=== PATIENT | female | born 1970 ===

== ENCOUNTER 2022-06-27 08:21 | Inpatient (IN) | payer MEDICAID, SELFPAY ==
--- NOTE | ~2022-06-27 | MR_ITS ---
EXAMINATION: MR ABDOMEN WITHOUT CONTRAST CLINICAL INFORMATION: Jaundice. Question pancreatic pseudocyst. COMPARISON: 06/27/2022 CT . TECHNIQUE: MR abdomen is performed without gadolinium contrast. Heavily T2 weighted sequence performed for MRCP acquisition. FINDINGS: LUNG BASES: The visualized lung bases are unremarkable. LIVER, GALLBLADDER, AND BILIARY TREE: The liver is normal in size and smooth in contour . There is diffuse signal dropout on out of phase imaging, consistent with hepatic steatosis. No focal hepatic lesion or biliary ductal dilatation is present. There is layering material within the gallbladder lumen which could represent stones or sludge. No wall thickening. PANCREAS: The pancreatic parenchyma appears homogenous without pancreatic ductal dilatation. Extending inferiorly from the region of the head of the pancreas there is a complex cystic structure with a thick wall. Mixed internal contents. This measures 7.2 x 4.8 x 6.5 cm. This corresponds with the appearance on prior CT this is of uncertain etiology on MRI, particularly given the lack of IV contrast. SPLEEN: Unremarkable. ADRENAL GLANDS: Unremarkable. KIDNEYS AND URETERS: The kidneys are normal in size and shape. No hydronephrosis. No perinephric stranding. GASTROINTESTINAL TRACT: No bowel obstruction. No ascites or fluid collection. ABDOMINAL WALL: No significant hernia is appreciated. LYMPH NODES: No lymphadenopathy. VASCULAR: Unremarkable. OSSEOUS STRUCTURES: Marrow signal normal. MR/MR MRCP IMPRESSION: 1. Complex cystic structure extending inferiorly from the region of the head of the pancreas. This is of uncertain etiology on MRI, particularly given the lack of IV contrast. The appearance does favor a pseudocyst, though as previously suggested on CT, cannot exclude duodenal diverticulum. It appears that a CT with oral contrast is pending. 2. Hepatic steatosis. No biliary ductal dilatation. 3. Layering material within the gallbladder lumen which could represent stones or sludge. No wall thickening.
--- NOTE | ~2022-06-27 | CT_ITS ---
EXAMINATION: CT ABDOMEN AND PELVIS WITH CONTRAST CLINICAL INFORMATION: Painless jaundice. COMPARISON: None available. TECHNIQUE: Multidetector volumetric images were obtained from the superior aspect of the liver through the pubic symphysis following administration 85 mL of Omnipaque 350 intravenous contrast. Sagittal and coronal reformatted images were obtained on the technologist's workstation. Oral contrast: No This CT examination was performed using dose optimization techniques as appropriate, variously including the following: *Automated exposure control *Adjustment of mA and/or kV according to patient size (this includes techniques or standardized protocols for targeted exams where dose is matched to indication/reason for exam; i.e. extremities or head) *Use of iterative reconstruction technique DLP: 264 mGy-cm FINDINGS: LUNG BASES: The visualized lung bases are unremarkable. LIVER, GALLBLADDER, AND BILIARY TREE: Diffuse decreased hepatic attenuation without focal abnormality. A labor relations representative gallbladder with probable mild dependent sludge towards the fundus without mural thickening. No significant biliary ductal dilatation. PANCREAS: No significant parenchymal abnormality. The pancreatic duct is not dilated. No peripancreatic abnormality. See gastrointestinal tract comments below. SPLEEN: Unremarkable. ADRENAL GLANDS: Unremarkable. KIDNEYS AND URETERS: Right kidney lower pole low-attenuation focus measures 0.7 cm (image 40, series 6). No nephrolithiasis or hydroureteronephrosis. BLADDER: Mildly distended with mild intraluminal air. GASTROINTESTINAL TRACT: The stomach and proximal duodenum are unremarkable. Adjacent to the third and fourth duodenal segments is a large cystic fluid attenuation mass measuring approximately 7.3 x 4.4 x 7.0 cm (image 23, series 6; image 41, series 3). Successful connectivity to the duodenum as well as the uncinate process of the pancreas. The jejunal and ileal loops are unremarkable. The appendix is unremarkable. The proximal one third of the sigmoid colon is displaced inferiorly by the cystic mass. The colon and rectum are unremarkable. ABDOMINAL WALL: Unremarkable. LYMPH NODES: No lymphadenopathy. VASCULAR: Unremarkable. PELVIC VISCERA: Anteverted/anteflexed uterus. Mild prominence of the left periuterine veins. No overt adnexal abnormality. OSSEOUS STRUCTURES: Unremarkable. CT/CT abdomen pelvis w IV con IMPRESSION: 1. Large cystic mass in the periduodenal/pancreatic region of indeterminate origin. This could represent a pseudocyst with questionable connectivity to either the uncinate process of the pancreas and/or third segment duodenum. Adjacent structures are displaced and distorted by the presence of the cyst. Other considerations include large duodenal diverticulum and gastrointestinal duplication cyst. Primary exophytic pancreatic cystic neoplasm or duodenal cystic neoplasm cannot be excluded as well. Gastrointestinal consultation is recommended. A repeat CT scan of the abdomen with intravenous contrast as well as oral contrast should be considered. Contrast-enhanced abdominal MRI may be of value as well. 2. Hepatic steatosis. No significant biliary ductal dilatation however intermittent biliary ductal obstruction by the cystic mass cannot be excluded.
--- NOTE | ~2022-06-27 | US_ITS ---
EXAMINATION: US ABDOMEN LIMITED CLINICAL INFORMATION: Painless jaundice. COMPARISON: CT abdomen pelvis 06/27/2022. TECHNIQUE: Real-time imaging of the right upper quadrant abdominal viscera. FINDINGS: PANCREAS: Normal. LIVER: The liver is upper limits of normal size. It measures 16 cm. The liver contour is normal. Parenchymal echogenicity is slightly increased. No focal hepatic lesion. There is no intrahepatic biliary duct dilatation seen. Normal hepatopedal flow seen in the portal vein. GALLBLADDER: The gallbladder is physiologically distended with echogenic bile. No echogenic stones or wall thickening. There is a complex area posterior to gallbladder measuring 6.4 x 4.3 x 6.[address] corresponds to a cystic mass in between the colon inferiorly and duodenum and uncinate process of pancreas superiorly. COMMON BILE DUCT: Normal in caliber measuring 0.3 x 0.7 cm in diameter. RIGHT KIDNEY: Normal. No hydronephrosis. No renal calculi or focal parenchymal lesions. The kidney measures 10.7 cm in maximum dimension. FREE FLUID: None. US/US abdomen limited IMPRESSION: Large complex mass posterior to gallbladder is surrounded by transverse colon inferiorly and the duodenum and within this process superiorly. Recommend follow-up as suggested on CT abdomen exam. Echogenic gallbladder bile without any echogenic stones.
--- NOTE | ~2022-06-27 | CT_ITS ---
EXAMINATION: CT ABDOMEN AND PELVIS WITH CONTRAST CLINICAL INFORMATION: Diverticulum versus pseudocyst right upper quadrant. COMPARISON: CT and ultrasound abdomen without contrast 06/27/2022. MRCP 06/28/2022. TECHNIQUE: Multidetector volumetric images were obtained from the superior aspect of the liver through the pubic symphysis following administration 85 mL of Omnipaque 350 intravenous contrast. Sagittal and coronal reformatted images were obtained on the technologist's workstation. Oral contrast: No This CT examination was performed using dose optimization techniques as appropriate, variously including the following: *Automated exposure control *Adjustment of mA and/or kV according to patient size (this includes techniques or standardized protocols for targeted exams where dose is matched to indication/reason for exam; i.e. extremities or head) *Use of iterative reconstruction technique DLP: 278 mGy-cm FINDINGS: LUNG BASES: The lung bases are clear. Heart size is normal. LIVER, GALLBLADDER, AND BILIARY TREE: The liver is normal in size, shape, and diffuse hypoattenuation with areas of focal fatty sparing adjacent to gallbladder and right lateral hepatic lobe. No focal hepatic lesion or biliary ductal dilatation is present. The gallbladder is unremarkable with no evidence of radiopaque gallstones, gallbladder wall thickening, or obvious pericholecystic inflammatory changes. PANCREAS: The pancreas is homogeneous in density, normal size. Again visualized is a nonenhancing well capsulated cystic lesion inferior to the head of the pancreas posterior the gallbladder and posterior inferior to the duodenum. Lack of oral contrast within the diverticulum and thin capsular wall enhancement is most suggestive of a pseudocyst or congenital gastrointestinal duplication cyst. Besides [id number] mass effect on the adjacent structures such as the duodenum and transverse colon, the cystic mass appears probably benign. There is nonspecific mild mural thickening involving the mid transverse colon where there is mass effect from the large cystic lesion. SPLEEN: Unremarkable. ADRENAL GLANDS: Unremarkable. KIDNEYS AND URETERS: Both kidneys are normal size, shape and cortical thickness. No focal lesion, radiopaque calculi or hydronephrosis. BLADDER: Unremarkable. GASTROINTESTINAL TRACT: There is scattered stool and gas seen throughout the colon without significant distention. The small bowel loops are normal caliber. The appendix is normal caliber. ABDOMINAL WALL: No significant hernia is appreciated. LYMPH NODES: Normal. VASCULAR: Mild arthroscopic calcification of abdominal aorta without aneurysmal dilatation.. PELVIC VISCERA: Unremarkable. OSSEOUS STRUCTURES: Unremarkable. CT/CT abdomen pelvis w IV con IMPRESSION: 1. Stable cystic lesion inferior to the head of pancreas and posterior inferior to the duodenum with mild to moderate mass effect on the adjacent structures such as the duodenum and transverse colon. The cystic mass is probably benign. It is not a duodenal diverticulum and may represent a pseudocyst or a duplication cyst. If there is a clinical concern for diagnosis or decompression a CT guided needle aspiration can be performed for further evaluation. 2. Diffuse hepatic steatosis with areas of focal fatty sparing adjacent to gallbladder and right lateral hepatic lobe. 3. Mild constipation. Fleischner guidelines were followed.
[2022-06-27 08:35] VITALS: BP 97/69; PULSE 98; RESP 18; TEMP 36.6; O2SAT 98; BMI 49.0
--- NOTE | 2022-06-27 09:46 | ED.DENTAL ---
HPI - Dental/Oral General Chief complaint: Dental/Oral Stated complaint: abscess in mouth Time Seen by Provider: 06/27/22 08:56 Source: patient Mode of arrival: ambulatory History of Present Illness HPI Narrative: 51-year-old female who presents with right upper molar dental pain and associated abscess. Patient denies any fevers, chills and denies any difficulty with breathing or swallowing. Patient denies any recent and unexplained weight loss, denies any abdominal pain/nausea/vomiting and denies any shortness of breath or chest pain/palpitations. These questions were asked because patient appears to be quite jaundice. Patient states that she is currently being followed at [facility] for MS. She states that she used to drink alcohol but has since quit. Teeth map: 1. Abscess Related Data Allergies Allergy/AdvReac Type Severity Reaction Status Date / Time No Known Allergies Allergy Verified 06/27/22 08:37 Review of Systems Review of Systems: Pertinent positives and negatives as stated in HPI [facility] Past Medical History Source: nursing notes reviewed Social History Social History Alcohol intake: former Smoked in Last 30 Days: Yes Use of substances other than those prescribed or required for medical reasons: No Advance Directives: No Advance Directives Information Provided: No Physical Exam Vital Signs: Vital Signs: Last Vital Signs Temp 98.4 F 06/27/22 16:16 Pulse 90 06/27/22 16:16 Resp 16 06/27/22 16:16 BP 82/52 L 06/27/22 16:16 Pulse Ox 98 06/27/22 16:16 O2 Del Method Room Air 06/27/22 16:16 BMI result Body Mass Index 49.0 VITAL SIGNS: Reviewed. GENERAL: Appears older than stated age, in no acute distress. HEAD: Normocephalic/atraumatic EYES: PERRLA, EOMI, bilateral scleral icterus EARS: Ext canals without abnormality, TMs non-bulging and non-erythematous NOSE: Nares patent bilateral OROPHARYNX: no oral lesions noted, posterior pharynx clear NECK: Supple, no adenopathy LUNGS: Normal breath sounds. No adventitious sounds or accessory muscle use. SpO2<98> CARDIOVASCULAR: Regular rate and rhythm without noted murmurs ABDOMEN: Soft, non-tender, non-distended with bowel sounds. MUSCULOSKELETAL: No tenderness, deformities, or effusions noted on gross inspection. EXTREMITIES: No cyanosis, clubbing or edema. SKIN: Inspection of the skin reveals no rashes, + jaundice NEUROLOGIC: Alert and oriented x 4. Strength and sensation to light touch were grossly intact x 4, no asterixis. Medications Administered Generic Name Dose Route Start Last Admin Trade Name Freq PRN Reason Stop Dose Admin Sodium Chloride 1,000 mls @ 999 mls/hr 06/27/22 16:30 06/27/22 16:36 Ns IV 06/27/22 17:30 999 mls/hr .Q1H1M NURIA Administration Discontinued Medications Generic Name Dose Route Start Last Admin Trade Name Freq PRN Reason Stop Dose Admin Amoxicillin/Clavulanate Potassium 875 mg 06/27/22 11:35 06/27/22 11:47 Amoxicillin/Potassium Clav 875 Mg Tablet PO 06/27/22 11:36 875 mg ONCE ONE Administration Iohexol 85 ml 06/27/22 14:31 06/27/22 14:31 Iohexol 350 Mg/Ml 100 Ml Infus..Btl IV 06/27/22 14:32 85 ml ONCE ONE Administration Potassium Chloride 60 meq 06/27/22 11:35 06/27/22 11:46 Potassium Chloride Er 20 Meq Tab.Er.Prt PO 06/27/22 11:36 60 meq ONCE ONE Administration Medical Decision Making Medical Decision Making MDM Narrative: 51-year-old female who presents for dental abscess without evidence of trismus. However, patient is noted to be significantly jaundiced but does not appear to be acute, patient denies noticing that her skin color has changed but endorses her boyfriend pointed out to her. I have requested records from [facility] at this time and will obtain basic lab work although patient appears to be hemodynamically stable and under the care of the [facility] with follow-up appointments. 1145: I spoke with Dr Lyons, neurology that specializes in MS, who states that she noted that patient was jaundice and referred the patient to GI who replied that this is all to do with alcoholic jaundice and patient needs to going to rehab before she goes through further treatment. There were no further imaging studies or recommendations at that time. In addition, this physician informs me that patient's hemoglobin on 04/10 was 12.6 with a platelet count of 182. She is noted to have a hemoglobin of 8.2, Plt-446, normal coagulation panel which raises concerns for me that this patient has undergone a possible upper GI events for which I will perform a stool guaiac, patient will also undergo a CT scan with IV contrast of the abdomen and pelvis for further evaluation of hepatobiliary system. 1155: I reviewed the documentation that was sent over by the [facility], patient's most recent MRI demonstrates stable plaques and no evidence to suggest acute changes. When I spoke with Neurology, patient is not been started on any MS medications at this time. I did speak with the patient at bedside and explained to her the reason that we were pursuing the CT scan of abdomen pelvis as well as the need for a stool guaiac. Patient denies any recent hematemesis, hematochezia, or melena. Stool guaiac performed with retail coordinator-Ken and is negative. 1613: Further review of all investigations to include CT imaging studies demonstrates, not surprisingly, a large cystic mass arising from possible pancreas/duodenum . I am consulting GI and then I will speak with the patient and highly recommend that this patient be admitted for further evaluation. I discussed all results with the patient and her boyfriend at the bedside. Patient has no evidence to support SIRS and received initial Augmentin for her dental abscess which was drained and will now need admission for completely different medical problem involving her pancreas and significant jaundice. 1641: Hospitalist is requesting ultrasound to evaluate CBD and the imaging study has been ordered. In addition, patient's blood pressure is noted to be low though likely consistent with body habitus as patient is mentating well, but giving IV fluids. Signed out to Dr Tinoco. Differential Diagnosis Please see the discussion above Consult Healthcare Provider Management of the patient was discussed with: Hospitalist and Flying Squad Worker Please see the discussion above Lab Data Please see the discussion above 06/27/22 09:51 06/27/22 09:51 Labs: Lab Results 06/27/22 06/27/22 06/27/22 Range/Units 09:51 09:51 09:51 WBC 11.4 H (4.8-10.8) X10*3/uL RBC 2.29 L (4.20-5.50) X10*6/uL Hgb 8.2 L (12.0-16.0) g/dl Hct 25.4 L (37.0-47.0) % MCV 110.9 H (80.0-98.0) fL MCH 35.8 H (27.0-33.0) pg MCHC 32.3 (31.0-35.0) g/dl RDW 17.2 H (11.0-16.0) % Plt Count 446 H (160-400) X10*3/uL MPV 10.1 (9.4-12.3) fL Immature Gran % (Auto) 0.6 H (0.0-0.4) % Neut % (Auto) 80.1 H (45-73) % Lymph % (Auto) 12.2 L (20-40) % [place] % (Auto) 5.9 (2-11) % Eos % (Auto) 0.7 (0-4) % Baso % (Auto) 0.5 (0-2) % Lymph # (Auto) 1.4 (1.2-4.9) X10*3/uL [place] # (Auto) 0.7 (0.1-1.2) X10*3/uL Eos # (Auto) 0.1 (0.0-0.4) X10*3/uL Baso # (Auto) 0.1 (0.0-0.2) X10*3/uL Abs Immat Gran (auto) 0.07 H (0.00-0.03) X10*3/uL Absolute Neuts (auto) 9.2 H (2.0-8.3) x10*3/uL Absolute Nucleated RBC 0.030 H (0.0-0.012) X10*3/uL Nucleated RBC % (auto) 0.3 H (0.0-0.2) /100WBC Smear Path Review SEE NOTE PT 12.3 (10.0-13.1) SEC INR 1.1 (0.9-1.1) Sodium 137 (135-145) mmol/L Potassium 2.8 L (3.3-5.1) mmol/L Chloride 94 L (96-108) mmol/L Carbon Dioxide 31 H (22-29) mmol/L Anion Gap 15 (12-20) BUN 4 L (9-16) mg/dL Creatinine 0.53 (0.5-1.4) mg/dL Estim Creat Clear Calc 141.7 Estimated GFR > 60 Random Glucose 107 (60-115) mg/dL Calcium 8.5 (8.4-10.2) mg/dL Magnesium 1.8 (1.6-2.6) mg/dL Iron 99 (30-160) mcg/dL TIBC 224 L (228-428) mcg/dL % Saturation 44 (15-50) % Unsat Iron Binding 125 ug/dL Ferritin 2050 H (10-250) ng/mL Total Bilirubin 7.4 H (0.0-1.0) mg/dL AST 156 H (5-31) U/L ALT 85 H (0-31) U/L Alkaline Phosphatase 514 H (39-117) U/L Total Protein 5.1 L (6.5-8.0) g/dL Albumin 2.7 L (3.5-5.0) g/dL Vitamin B12 1982 H (200-900) pg/mL Stool Occult Blood (NEGATIVE) 06/27/22 Range/Units 12:10 WBC (4.8-10.8) X10*3/uL RBC (4.20-5.50) X10*6/uL Hgb (12.0-16.0) g/dl Hct (37.0-47.0) % MCV (80.0-98.0) fL MCH (27.0-33.0) pg MCHC (31.0-35.0) g/dl RDW (11.0-16.0) % Plt Count (160-400) X10*3/uL MPV (9.4-12.3) fL Immature Gran % (Auto) (0.0-0.4) % Neut % (Auto) (45-73) % Lymph % (Auto) (20-40) % [place] % (Auto) (2-11) % Eos % (Auto) (0-4) % Baso % (Auto) (0-2) % Lymph # (Auto) (1.2-4.9) X10*3/uL [place] # (Auto) (0.1-1.2) X10*3/uL Eos # (Auto) (0.0-0.4) X10*3/uL Baso # (Auto) (0.0-0.2) X10*3/uL Abs Immat Gran (auto) (0.00-0.03) X10*3/uL Absolute Neuts (auto) (2.0-8.3) x10*3/uL Absolute Nucleated RBC (0.0-0.012) X10*3/uL Nucleated RBC % (auto) (0.0-0.2) /100WBC Smear Path Review PT (10.0-13.1) SEC INR (0.9-1.1) Sodium (135-145) mmol/L Potassium (3.3-5.1) mmol/L Chloride (96-108) mmol/L Carbon Dioxide (22-29) mmol/L Anion Gap (12-20) BUN (9-16) mg/dL Creatinine (0.5-1.4) mg/dL Estim Creat Clear Calc Estimated GFR Random Glucose (60-115) mg/dL Calcium (8.4-10.2) mg/dL Magnesium (1.6-2.6) mg/dL Iron (30-160) mcg/dL TIBC (228-428) mcg/dL % Saturation (15-50) % Unsat Iron Binding ug/dL Ferritin (10-250) ng/mL Total Bilirubin (0.0-1.0) mg/dL AST (5-31) U/L ALT (0-31) U/L Alkaline Phosphatase (39-117) U/L Total Protein (6.5-8.0) g/dL Albumin (3.5-5.0) g/dL Vitamin B12 (200-900) pg/mL Stool Occult Blood NEGATIVE (NEGATIVE) Discharge Plan Discharge Clinical Impression: Dental abscess, Hepatitis, Mass of pancreas, Multiple sclerosis, Anemia Patient Disposition: Admitted As Inpatient
--- NOTE | 2022-06-27 09:46 | PC.NURSE ---
here for dental pain and abscess, pt jaundiced, states she has follow up at [facility] re liver problems, aware of care plan, medical office secretary getting [place] [facility] records
[2022-06-27 09:57] LABS: MANUAL DIFF FLAG NO
[2022-06-27 09:59] LABS: Basophils Absolute Auto 0.1 X10*3/uL (0.0-0.2); Basophils Percent Auto 0.5 % (0-2); Eosinophils Absolute Auto 0.1 X10*3/uL (0.0-0.4); Eosinophils Percent Auto 0.7 % (0-4); Hematocrit 25.4 % (37.0-47.0); Hemoglobin 8.2 g/dl (12.0-16.0); Imm Gran Abs Auto 0.07 X10*3/uL (0.00-0.03); Imm Gran Pct Auto 0.6 % (0.0-0.4); Lymphocytes Absolute Auto 1.4 X10*3/uL (1.2-4.9); Lymphocytes Percent Auto 12.2 % (20-40); Mean Corpuscular HGB Conc 32.3 g/dl (31.0-35.0); Mean Corpuscular Hemoglobin 35.8 pg (27.0-33.0); Mean Platelet Volume 10.1 fL (9.4-12.3); Monocytes Absolute Auto 0.7 X10*3/uL (0.1-1.2); Monocytes Percent Auto 5.9 % (2-11); NRBC Pct Auto 0.3 /100WBC (0.0-0.2); Neutrophils Absolute Auto 9.2 x10*3/uL (2.0-8.3); Neutrophils Percent Auto 80.1 % (45-73); Platelet Count 446 X10*3/uL (160-400); Red Blood Count 2.29 X10*6/uL (4.20-5.50); Red Cell Distribution Width 17.2 % (11.0-16.0); White Blood Count 11.4 X10*3/uL (4.8-10.8)
[2022-06-27 10:01] LABS: Mean Corpuscular Volume 110.9 fL (80.0-98.0)
[2022-06-27 10:04] LABS: INTERNATIONAL NORM RATIO 1.1 (0.9-1.1); Prothrombin Time 12.3 SEC (10.0-13.1)
[2022-06-27 10:15] LABS: Alanine Aminotransferase 85 U/L (0-31); Albumin Level 2.7 g/dL (3.5-5.0); Alkaline Phosphatase 514 U/L (39-117); Anion Gap 15 (12-20); Aspartate Amino Transferase 156 U/L (5-31); Bilirubin Total 7.4 mg/dL (0.0-1.0); Blood Urea Nitrogen 4 mg/dL (9-16); Calcium 8.5 mg/dL (8.4-10.2); Carbon Dioxide 31 mmol/L (22-29); Chloride 94 mmol/L (96-108); Creatinine Clr Calc Pharmacy 141.7; Estimated Glomerular Filt Rate > 60; Glucose Random 107 mg/dL (60-115); Potassium 2.8 mmol/L (3.3-5.1); Sodium 137 mmol/L (135-145); Total Protein 5.1 g/dL (6.5-8.0)
[2022-06-27 11:22] LABS: Magnesium 1.8 mg/dL (1.6-2.6)
[2022-06-27] MEDS: Potassium Chloride ER 20 MEQ TAB.ER.PRT 60 MEQ PO (11:46)
[2022-06-27] MEDS: Amoxicillin/Potassium Clav 875 MG TABLET PO ×2 (11:47→19:22)
[2022-06-27 12:18] LABS: OBS Int Ctl Valid YES; OBS1 NEGATIVE (NEGATIVE)
--- NOTE | 2022-06-27 12:28 | PC.NURSE ---
pt unaware that she is jaundiced, iv placed, denies abd pain, aware of care plan
[2022-06-27 12:56] VITALS: BP 102/72; PULSE 86; RESP 16; TEMP 36.7; O2SAT 98
[2022-06-27 12:56] LABS: Iron 99 mcg/dL (30-160); Percent Iron Saturation 44 % (15-50); Total Iron Binding Capacity 224 mcg/dL (228-428); Unsaturated Iron Binding 125 ug/dL
[2022-06-27 13:30] LABS: Vitamin B12 1982 pg/mL (200-900)
[2022-06-27 14:00] VITALS: BP 95/60; PULSE 88; RESP 16; TEMP 36.8; O2SAT 96
[2022-06-27] MEDS: iohexoL 350 MG/ML 100 ML INFUS..BTL 85 ML IV (14:31)
[2022-06-27 14:51] LABS: Ferritin 2050 ng/mL (10-250)
[2022-06-27 16:16] VITALS: BP 82/52; PULSE 90; RESP 16; TEMP 36.9; O2SAT 98
[2022-06-27] MEDS: 0.9 % Sodium Chloride 1,000 ML 999 ML IV (16:36)
--- NOTE | 2022-06-27 17:11 | PHA.MEDREC ---
Pharmacy Consult ? Medication Reconciliation Pharmacy has completed the medication reconciliation.
--- NOTE | 2022-06-27 17:27 | PM.IMHP ---
History of Present Illness Date of Service: 06/27/22 Attending physician on admission: Samantha Bernabe Chief Complaint: Dental pain Pt is a 51-year-old female with a PMH significant for?MS, HLD, current half pack smoker, and hx of heavy alcohol use who initially presents to the ED with right upper molar dental pain. Patient was found to have an abscess which was drained in the ED and patient prescribed Augmentin. While in the ED patient was noted to look quite jaundiced. Patient states that her boyfriend point this out to her? a couple of weeks ago, but she ignored his comments thinking he was making fun of her. Pt has a long history of drinking heavily on the weekends, and recently moved to [place] where she was drinking 10+ drinks daily for the past three months. Says she has quit drinking since moving back to the [facility]. Patient currently denies fever, chills, nausea, vomiting, diarrhea. No abdominal pain. Patient denies chest pain/pressure, palpitations. No shortness of breath. Patient states she is unaware of any recent unexplained weight loss. Denies hematochezia, melena. Denies lightheadedness, dizziness, fatigue. Patient states she used to be on MS medications in the past, but has not been on any medications since before moving to [place] since she had not established either PCP or Neurology care either in [place] or up here in [place]. Patient has chronic numbness and tingling in her lower extremities due to side effect from previous MS medication. In the ED labs were significant for leukocytosis of 11.4, H&H of 8.2/25.4, MCV of 110.9, potassium 2.8, ferritin of 2050, total bilirubin 7.4, AST 156, ALT 85, alk-phos 514. Stool negative for occult blood. UA positive for UTI. Hepatitis panel pending. CT?of abdomen/pelvis showed large cystic mass in the periduodenal/pancreatic region of indeterminate origin that has displaced adjacent structures:Pseudocyst vs neoplasm vs large duodenal diverticula vs gastrointestinal duplication cyst. No significant biliary ductal dilation was shown however intermittent biliary ductal obstruction of the cystic mass cannot be excluded. U/S of abdomen pending. Pt was treated with potassium chloride, Augmentin, and IVF. Pt will be admitted to the hospital for treatment further evaluation of jaundice Likely secondary to pancreatic cystic mass. Review of Systems Review of Systems: Upper right dental pain Jaundice x2 weeks Chronic Numbness and tingling in lower extremities, side effect from previous MS medication No fever, chills, nausea, vomiting, diarrhea, abdominal pain Denies chest pain/pressure palpitations Denies shortness of breath Yes all other systems are reviewed and are negative [facility] Social History Household Members: Significant Other Housing: Apartment Do you presently have visiting nurse or other home services: No Alcohol intake: former Patient Tobacco Use Status: Never used Tobacco Tobacco use type: Cigarette Smoked in Last 30 Days: Yes e-Cigarette/Vaping Use: Never Used Patient Interested in Nicotine Replacement: No Patient Given Instructions on How to Stop Smoking: Yes Date Education Initiated: 06/27/22 Use of substances other than those prescribed or required for medical reasons: No Currently Displaying Signs/Symptoms of Drug Intoxication Withdrawal: No Have you been hit, kicked, punched, or otherwise hurt by someone within the past year? If so, by whom?: No Do you feel safe in your current relationship?: Yes Is there a partner from a previous relationship who is making you feel unsafe now?: No Are you made to feel afraid or neglected: No Advance Directives: No Advance Directives Information Provided: No Do you have thoughts of harming others: None Do you have a plan to hurt others: No Plan Patient : No Meds Allergies Allergy/AdvReac Type Severity Reaction Status Date / Time No Known Allergies Allergy Verified 06/27/22 08:37 Active Medications: Current Medications Sodium Chloride (Ns) 1,000 mls @ 999 mls/hr IV .Q1H1M NURIA Stop: 06/27/22 17:30 Last Admin: 06/27/22 16:36 Dose: 999 mls/hr Home Medications Medication Instructions Recorded Confirmed Last Taken Type No Known Home Meds 06/27/22 06/27/22 Unknown History Physical Exam Vital Signs and Narrative: Vital Signs: Last Vital Signs Temp 98.4 F 06/27/22 16:16 Pulse 90 06/27/22 16:16 Resp 16 06/27/22 16:16 BP 82/52 L 06/27/22 16:16 Pulse Ox 98 06/27/22 16:16 O2 Del Method Room Air 06/27/22 16:16 BMI result Body Mass Index 49.0 Constitutional: Alert, in no acute distress. Patient with noted jaundice. Mental Status: Oriented to person, place and time. Eyes: Pupils are equal, round, and reactive to light. Sclerae icteric Ear, Nose, and Throat: Oropharynx clear, mucous membranes moist. Ears and nose without deformities. Trachea midline. Poor dentition. Respiratory: Clear to auscultation bilaterally. No wheezing, rales, or rhonchi. Cardiovascular: S1, S2 regular. No murmurs, rubs, or gallops. Gastrointestinal: Abdomen soft, non-tender, non-distended. Normal bowel sounds. Neurologic: Cranial nerves II-XII are grossly intact bilaterally. No focal neurological deficits. Moves all extremities spontaneously. Skin: No rashes or lesions noted. Musculoskeletal: No cyanosis or clubbing. Extremities: No edema. Psychiatric: Normal mood and affect. Results Labs 06/27/22 09:51 06/27/22 09:51 Labs: Laboratory Results - last 24 hr 06/27/22 06/27/22 06/27/22 09:51 09:51 09:51 MCV 110.9 H MCH 35.8 H MCHC 32.3 RDW 17.2 H Plt Count 446 H MPV 10.1 Immature Gran % (Auto) 0.6 H Neut % (Auto) 80.1 H Lymph % (Auto) 12.2 L [place] % (Auto) 5.9 Eos % (Auto) 0.7 Baso % (Auto) 0.5 Lymph # (Auto) 1.4 [place] # (Auto) 0.7 Eos # (Auto) 0.1 Baso # (Auto) 0.1 Abs Immat Gran (auto) 0.07 H Absolute Neuts (auto) 9.2 H Absolute Nucleated RBC 0.030 H Nucleated RBC % (auto) 0.3 H Smear Path Review SEE NOTE PT 12.3 INR 1.1 Anion Gap 15 Estim Creat Clear Calc 141.7 Estimated GFR > 60 Random Glucose 107 Calcium 8.5 Magnesium 1.8 Iron 99 TIBC 224 L % Saturation 44 Unsat Iron Binding 125 Ferritin 2050 H Total Bilirubin 7.4 H AST 156 H ALT 85 H Alkaline Phosphatase 514 H Total Protein 5.1 L Albumin 2.7 L Vitamin B12 1982 H Stool Occult Blood 06/27/22 12:10 MCV MCH MCHC RDW Plt Count MPV Immature Gran % (Auto) Neut % (Auto) Lymph % (Auto) [place] % (Auto) Eos % (Auto) Baso % (Auto) Lymph # (Auto) [place] # (Auto) Eos # (Auto) Baso # (Auto) Abs Immat Gran (auto) Absolute Neuts (auto) Absolute Nucleated RBC Nucleated RBC % (auto) Smear Path Review PT INR Anion Gap Estim Creat Clear Calc Estimated GFR Random Glucose Calcium Magnesium Iron TIBC % Saturation Unsat Iron Binding Ferritin Total Bilirubin AST ALT Alkaline Phosphatase Total Protein Albumin Vitamin B12 Stool Occult Blood NEGATIVE Imaging Radiologist's Impressions: Impressions Abdomen/Pelvis CT 06/27/22 14:42 IMPRESSION: 1. Large cystic mass in the periduodenal/pancreatic region of indeterminate origin. This could represent a pseudocyst with questionable connectivity to either the uncinate process of the pancreas and/or third segment duodenum. Adjacent structures are displaced and distorted by the presence of the cyst. Other considerations include large duodenal diverticulum and gastrointestinal duplication cyst. Primary exophytic pancreatic cystic neoplasm or duodenal cystic neoplasm cannot be excluded as well. Gastrointestinal consultation is recommended. A repeat CT scan of the abdomen with intravenous contrast as well as oral contrast should be considered. Contrast-enhanced abdominal MRI may be of value as well. 2. Hepatic steatosis. No significant biliary ductal dilatation however intermittent biliary ductal obstruction by the cystic mass cannot be excluded. Assessment and Plan (1) Dental abscess: Status: Acute (2) Mass of pancreas: Status: Acute (3) Anemia: Status: Acute Plan Pt is a 51-year-old female with a PMH significant for?MS, HLD, current half pack smoker, and hx of heavy alcohol use who initially presents to the ED with right upper molar dental pain. Pt will be admitted to the hospital for treatment further evaluation of jaundice Likely secondary to pancreatic cystic mass. Pancreatic cystic mass Patient with jaundice, hyperbilirubinemia, transaminitis, and elevated ferritin CT scan revealed a large cystic mass in the periduodenal/pancreatic region of indeterminate origin that his displaced and distorted adjacent structures Pseudocyst vs neoplasm vs large duodenal diverticula vs gastrointestinal duplication cyst Check abdominal ultrasound Will get MRI of abdomen and pelvis with/without contrast GI consult IVF: lactated ringers Jaundice/hyperbilirubinemia/transaminitis Likely secondary to intermittent biliary ductal obstruction by cystic mass Check hepatitis panel Macrocytic anemia Patient's H&H 8.2/25.4, down from Unclear etiology, stool negative for occult blood Check B12, folate Supplement with B12, folic acid, multivitamin Hypokalemia Patient's potassium 2.8 Patient was given potassium chloride in the ED Follow BMP Dental abscess Drained in the ED Continue Augmentin, started 06/27/2022 UTI UA positive for UTI Patient asymptomatic: No polyuria, no dysuria Patient covered by Augmentin, started 06/27/2002 Follow cultures MS Patient is seen by Neurology in [place] in the past Patient has not been taking any medication since temporarily moving to [place] 3 months ago Patient has yet to reestablish Neurology care in [place] Should follow up outpatient, establish care, resume home meds HLD Not currently on home meds Check lipid panel Patient should reestablish PCP care and resume home meds Nicotine dependence Patient is a current half a day smoker Declines nicotine replacement therapy at this time Full Code Attending:?Dr. Bernabe DVT Prophylaxis: Pneumatic boots Pt will require a hospitalization of at least two nights for treatment and further evaluation of pancreatic cystic mass of undetermined origin. Time Spent With Patient Time: Total time managing care of this patient today ____ minutes. Quality Stroke Does the patient have a stroke diagnosis?: No VTE Prior VTE?: No VTE Risk Level:: Medical - moderate - high VTE Device Contraindication: N/A - Device Ordered VTE Drug Contraindication: Treatment Not Indicated
[2022-06-27 17:42] LABS: Folate 5.1 ng/mL (> or = 4.0)
[2022-06-27 17:45] LABS: Appearance Urine Clear; Color Urine Dark Yellow; Glucose Urine UA Negative (Negative); Leukocyte Esterase Urine Trace (Negative); Nitrite Urine Positive (Negative); Specific Gravity - Urine >= 1.030 (1.005-1.025); UMIC TRIGGER UACC YES; Urine Blood Negative (Negative); Urine Ketones Negative (Negative); Urine Protein 30 (1+) mg/dL (Neg-Trace)
[2022-06-27 17:52] VITALS: BP 94/64; PULSE 84; RESP 16; TEMP 37; O2SAT 95
[2022-06-27 17:56] LABS: Bacteria Urine 3+ (None Seen); Hyaline Casts Urine 0-2 /LPF (0-2); UACC Culture Trigger YES; WBC Urine 0-5 /HPF (0-5)
--- NOTE | 2022-06-27 18:01 | MHC.EDTECH ---
1800 rounding done ,vitals sign taken ,type and screen blood drawn and sent to lab .
[2022-06-27] MEDS: Multivitamin TABLET 1 TAB PO (19:22)
[2022-06-27] MEDS: Thiamine HCL 100 MG TABLET PO (19:22)
[2022-06-27] MEDS: Lactated Ringers 1,000 ML 100 ML IVCONT (19:23)
[2022-06-27] MEDS: Folic Acid 1 MG TABLET PO (19:23)
[2022-06-27 23:09] VITALS: BP 99/60; PULSE 83; RESP 18; TEMP 36.2; O2SAT 97
[2022-06-27] MEDS: 0.9 % Sodium Chloride Flush 3 ML SYRINGE IVFLUSH (23:35)
[2022-06-28] VITALS (9 sets, daily range): BP systolic 90–115; BP diastolic 46–81; PULSE 72–95; RESP 16–20; TEMP 36–37; O2SAT 96–100; BMI 20.8
[2022-06-28 00:01] LABS: Anion Gap 12 (12-20); Blood Urea Nitrogen 3 mg/dL (9-16); Calcium 7.9 mg/dL (8.4-10.2); Carbon Dioxide 29 mmol/L (22-29); Chloride 101 mmol/L (96-108); Creatinine Clr Calc Pharmacy 166.9; Estimated Glomerular Filt Rate > 60; Glucose Random 92 mg/dL (60-115); Potassium 3.1 mmol/L (3.3-5.1); Sodium 139 mmol/L (135-145)
[2022-06-28] MEDS: Potassium Chloride Packet 20 MEQ PACKET 40 MEQ PO ×2 (00:52→02:08)
[2022-06-28] MEDS: 0.9 % Sodium Chloride Flush 3 ML SYRINGE IVFLUSH ×2 (00:53→19:32)
[2022-06-28] MEDS: Lactated Ringers 1,000 ML 100 ML IVCONT (05:22)
[2022-06-28 06:55] LABS: Hematocrit 21.2 % (37.0-47.0); Mean Corpuscular HGB Conc 31.1 g/dl (31.0-35.0); Mean Corpuscular Hemoglobin 35.7 pg (27.0-33.0); Mean Platelet Volume 10.3 fL (9.4-12.3); NRBC Pct Auto 0.3 /100WBC (0.0-0.2); Platelet Count 384 X10*3/uL (160-400); Red Blood Count 1.85 X10*6/uL (4.20-5.50); Red Cell Distribution Width 17.3 % (11.0-16.0)
[2022-06-28 07:48] LABS: Alanine Aminotransferase 68 U/L (0-31); Alkaline Phosphatase 389 U/L (39-117); Anion Gap 9 (12-20); Aspartate Amino Transferase 140 U/L (5-31); Bilirubin Total 5.6 mg/dL (0.0-1.0); Blood Urea Nitrogen < 3 mg/dL (9-16); Calcium 7.7 mg/dL (8.4-10.2); Carbon Dioxide 27 mmol/L (22-29); Chloride 105 mmol/L (96-108); Cholesterol 220 mg/dL; Creatinine Clr Calc Pharmacy 183.2; Estimated Glomerular Filt Rate > 60; Glucose Random 70 mg/dL (60-115); HDL Cholesterol 10 mg/dL; LDL Cholesterol Calculated 184 mg/dl; Potassium 4.4 mmol/L (3.3-5.1); Sodium 137 mmol/L (135-145); Total Protein 3.9 g/dL (6.5-8.0); Triglycerides 134 mg/dL
[2022-06-28] MEDS: Multivitamin TABLET 1 TAB PO (07:59)
[2022-06-28] MEDS: Thiamine HCL 100 MG TABLET PO (07:59)
[2022-06-28] MEDS: Amoxicillin/Potassium Clav 875 MG TABLET PO (07:59)
[2022-06-28] MEDS: Folic Acid 1 MG TABLET PO (07:59)
[2022-06-28 08:20] LABS: Hemoglobin 6.6 g/dl (12.0-16.0); Mean Corpuscular Volume 114.6 fL (80.0-98.0)
--- NOTE | 2022-06-28 08:23 | PM.EVENT ---
Event Note Date of Service: 06/28/22 Event Note: GI Consult-Full note dictated Imp: Pancreatic lesion such as a pseudocyst or neoplasm vs. duodenal diverticulum Jaundice due to primary liver disease, intermittent biliary obstruction due to above, and/or component of hemolysis given drop in Hgb and Heme negative stool Rec: MRCP, CT with oral contrast, follow LFT's with fractionated bilirubin, hemolysis w/u if indicated by indirect bilirubin being greater than direct bilirubin, check Amylase/Lipase. She may need a CA 19-9 level and an eventual EUS, but I don't think she needs an ERCP at this time. Her diet can be advanced after her scans are done. D/W patient. Thanks Time Spent With Patient Time: Total time managing care of this patient today ____ minutes.
[2022-06-28 08:28] LABS: Alanine Aminotransferase 68 U/L (0-31); Alkaline Phosphatase 389 U/L (39-117); Amylase 60 U/L (28-100); Aspartate Amino Transferase 137 U/L (5-31); Bilirubin Total 5.8 mg/dL (0.0-1.0); Lipase 35 U/L (8-78); Total Protein 3.9 g/dL (6.5-8.0)
[2022-06-28 08:45] LABS: Gamma Glutamyl Transpeptidase 1076 U/L (7-33)
[2022-06-28 09:15] LABS: Monotest Negative (Negative)
[2022-06-28 10:14] LABS: Immature Retic Fraction 35.9 % (3.0-15.9); Retic HGB Equivalent 34.3 pg (30.0-35.0); Reticulocyte Percent 15.1 % (0.5-1.8); Reticulocytes Absolute 0.275 X10*6/uL (0.026-0.095)
--- NOTE | 2022-06-28 12:18 | P.PNIM_ITS ---
Subjective Subjective Date of Service: 06/28/22 Interval History: Seen and evaluate this morning Feels better overall NPO for MRCP Hb dropped down to 6.6 with no overt bleeding no other overnight events Review of Systems Review of Systems: Yes all other systems are reviewed and are negative Physical Exam Vital Signs: Vital Signs: Last Vital Signs Temp 97.2 F 06/28/22 07:41 Pulse 82 06/28/22 07:41 Resp 18 06/28/22 07:41 BP 98/59 L 06/28/22 07:41 Pulse Ox 97 06/28/22 07:41 O2 Del Method Room Air 06/28/22 07:41 BMI result Body Mass Index 49.0 Const: Other: Constitutional : Awake, interactive,jaundiced, not in distress Neck : Normal inspection, Supple Cardiovascular : RRR, no JVP, no lower extremity edema Respiratory : good bilateral air entry, no crackles, wheezes or rhonchi Gastrointestinal: soft, lax, Normal bowel sounds, Non tender Skin : Warm, Dry Neurological : Alert & oriented x3, No focal deficit Objective Data Active Medications Acetaminophen (Acetaminophen 325 Mg Tablet) 650 mg PO Q6H PRN PRN Reason: Pain, Mild (Pain Scale 1-3) Amoxicillin/Clavulanate Potassium (Amoxicillin/Potassium Clav 875 Mg Tablet) 875 mg PO BID FORMERLY [facility], [facility]1983 Last Admin: 06/28/22 07:59 Dose: 875 mg Documented By: ELIEL Docusate Sodium (Docusate Sodium 100 Mg Capsule) 100 mg PO DAILY PRN PRN Reason: Constipation Folic Acid (Folic Acid 1 Mg Tablet) 1 mg PO DAILY FOR[facility]LY [facility], [facility]1983 Last Admin: 06/28/22 07:59 Dose: 1 mg Documented By: ELIEL Lactated Ringer's (Lr) 1,000 mls @ 100 mls/hr IVCONT .Q10H FOR[facility]LY [facility], 1928–1983 Last Admin: 06/28/22 05:22 Dose: 100 mls/hr Documented By: EDGAR Multivitamins/Vitamin C (Multivitamin Tablet) 1 tab PO DAILY FOR[facility]LY [facility], [facility]–1983 Stop: 06/30/22 18:59 Last Admin: 06/28/22 07:59 Dose: 1 tab Documented By: ELIEL Ondansetron HCl (Ondansetron Hcl 4 Mg/2 Ml Vial) 4 mg IVPUSH Q8H PRN PRN Reason: Nausea and Vomiting Sodium Chloride (0.9 % Sodium Chloride Flush 3 Ml Syringe) 3 ml IVFLUSH QSHIFT FOR[facility], 1928–1983 Last Admin: 06/28/22 10:11 Dose: Not Given Documented By: ELIEL Non-Admin Reason: IV Running Thiamine HCl (Thiamine Hcl 100 Mg Tablet) 100 mg PO DAILY [facility], [facility]1983 Stop: 06/30/22 18:59 Last Admin: 06/28/22 07:59 Dose: 100 mg Documented By: ELIEL Labs 06/28/22 05:25 06/28/22 05:25 Labs: Laboratory Results - last 24 hr 06/27/22 06/27/22 06/27/22 09:51 09:51 12:10 MCV MCH MCHC RDW Plt Count MPV Absolute Nucleated RBC Nucleated RBC % (auto) Smear Path Review SEE NOTE Absolute Retic Percent Retic Immature Retic Fraction Retic Hgb Equivalent Anion Gap Estim Creat Clear Calc Estimated GFR Random Glucose Calcium Iron 99 TIBC 224 L % Saturation 44 Unsat Iron Binding 125 Ferritin 2050 H Total Bilirubin Direct Bilirubin GGT AST ALT Alkaline Phosphatase Total Protein Albumin Triglycerides Cholesterol LDL Cholesterol, Calc HDL Cholesterol Amylase Lipase Vitamin B12 1982 H Folate 5.1 Urine Color Urine Appearance Urine pH Ur Specific [place] Urine Protein Urine Glucose (UA) Urine Ketones Urine Blood Urine Nitrite Ur Leukocyte Esterase Urine RBC Urine WBC Ur Squamous Epith Cells Urine Bacteria Hyaline Casts Stool Occult Blood NEGATIVE Monoscreen Blood Type Antibody Screen Crossmatch ([facility]) 06/27/22 06/27/22 06/27/22 17:35 18:00 23:31 MCV MCH MCHC RDW Plt Count MPV Absolute Nucleated RBC Nucleated RBC % (auto) Smear Path Review Absolute Retic Percent Retic Immature Retic Fraction Retic Hgb Equivalent Anion Gap 12 Estim Creat Clear Calc 166.9 Estimated GFR > 60 Random Glucose 92 Calcium 7.9 L D Iron TIBC % Saturation Unsat Iron Binding Ferritin Total Bilirubin Direct Bilirubin GGT AST ALT Alkaline Phosphatase Total Protein Albumin Triglycerides Cholesterol LDL Cholesterol, Calc HDL Cholesterol Amylase Lipase Vitamin B12 Folate Urine Color Dark Yellow Urine Appearance Clear Urine pH 6.0 Ur Specific [place] >= 1.030 H Urine Protein 30 (1+) H Urine Glucose (UA) Negative Urine Ketones Negative Urine Blood Negative Urine Nitrite Positive H Ur Leukocyte Esterase Trace H Urine RBC 6-10 H Urine WBC 0-5 Ur Squamous Epith Cells 3-5 Urine Bacteria 3+ Hyaline Casts 0-2 Stool Occult Blood Monoscreen Blood Type O Negative Antibody Screen NEGATIVE Crossmatch ([facility]) See Detail 06/28/22 06/28/22 06/28/22 05:25 05:25 07:45 MCV 114.6 H MCH 35.7 H MCHC 31.1 RDW 17.3 H Plt Count 384 MPV 10.3 Absolute Nucleated RBC 0.030 H Nucleated RBC % (auto) 0.3 H Smear Path Review Absolute Retic 0.275 H Percent Retic 15.1 H Immature Retic Fraction 35.9 H Retic Hgb Equivalent 34.3 Anion Gap 9 L Estim Creat Clear Calc 183.2 Estimated GFR > 60 Random Glucose 70 Calcium 7.7 L Iron TIBC % Saturation Unsat Iron Binding Ferritin Total Bilirubin 5.6 H 5.8 H Direct Bilirubin 4.0 H GGT 1076 H AST 140 H 137 H ALT 68 H 68 H Alkaline Phosphatase 389 H 389 H Total Protein 3.9 L 3.9 L Albumin 2.0 L 2.0 L Triglycerides 134 Cholesterol 220 LDL Cholesterol, Calc 184 HDL Cholesterol 10 Amylase 60 Lipase 35 Vitamin B12 Folate Urine Color Urine Appearance Urine pH Ur Specific [place] Urine Protein Urine Glucose (UA) Urine Ketones Urine Blood Urine Nitrite Ur Leukocyte Esterase Urine RBC Urine WBC Ur Squamous Epith Cells Urine Bacteria Hyaline Casts Stool Occult Blood Monoscreen Blood Type Antibody Screen Crossmatch ([facility]) 06/28/22 07:45 MCV MCH MCHC RDW Plt Count MPV Absolute Nucleated RBC Nucleated RBC % (auto) Smear Path Review Absolute Retic Percent Retic Immature Retic Fraction Retic Hgb Equivalent Anion Gap Estim Creat Clear Calc Estimated GFR Random Glucose Calcium Iron TIBC % Saturation Unsat Iron Binding Ferritin Total Bilirubin Direct Bilirubin GGT AST ALT Alkaline Phosphatase Total Protein Albumin Triglycerides Cholesterol LDL Cholesterol, Calc HDL Cholesterol Amylase Lipase Vitamin B12 Folate Urine Color Urine Appearance Urine pH Ur Specific [place] Urine Protein Urine Glucose (UA) Urine Ketones Urine Blood Urine Nitrite Ur Leukocyte Esterase Urine RBC Urine WBC Ur Squamous Epith Cells Urine Bacteria Hyaline Casts Stool Occult Blood Monoscreen Negative Blood Type Antibody Screen Crossmatch ([facility]) Assessment and Plan (1) Dental abscess: Status: Acute (2) Mass of pancreas: Status: Acute (3) Anemia: Status: Acute (4) Jaundice: Status: Acute (5) Hypokalemia: Status: Acute Plan Pt is a 51-year-old female with a PMH significant for?MS, HLD, current half pack smoker, and hx of heavy alcohol use who initially presents to the ED with right upper molar dental pain. Pt will be admitted to the hospital for treatment further evaluation of jaundice Likely secondary to pancreatic cystic mass. Pancreatic cystic mass Patient with jaundice, hyperbilirubinemia, transaminitis, and elevated ferritin CT scan revealed a large cystic mass in the periduodenal/pancreatic region of indeterminate origin that his displaced and distorted adjacent structures Pseudocyst vs neoplasm vs large duodenal diverticula vs gastrointestinal duplication cyst Pending MRCP of abdomen Pending CA19-9 GI consult DC IVF after imaging Jaundice/hyperbilirubinemia/transaminitis Likely secondary to intermittent biliary ductal obstruction by cystic mass vs liver disease pending hepatitis panel acute on chronic Macrocytic anemia Hb dropped to 6.6 this morning, likely dilutional stool negative for occult blood normal B12, folate Supplement with B12, folic acid, multivitamin Hematology eval Hypokalemia resolved Dental abscess Drained in the ED Continue Augmentin, started 06/27/2022 UTI UA positive for UTI Patient asymptomatic: No polyuria, no dysuria Patient covered by Augmentin, started 06/27/2002 Follow cultures MS Patient is seen by Neurology in [place] in the past Patient has not been taking any medication since temporarily moving to [place] 3 months ago Patient has yet to reestablish Neurology care in [place] Should follow up outpatient, establish care, resume home meds HLD Not currently on home meds Check lipid panel Patient should reestablish PCP care and resume home meds Nicotine dependence Patient is a current half a day smoker Declines nicotine replacement therapy at this time Full Code DVT Prophylaxis: Pneumatic boots Pt will require a hospitalization overnight for treatment and further evaluation of pancreatic cystic mass of undetermined origin. Time Spent With Patient Time: Total time managing care of this patient today ____ minutes. Quality Stroke Does the patient have a stroke diagnosis?: No VTE Prior VTE?: No VTE Risk Level:: Medical - moderate - high VTE Device Contraindication: N/A - Device Ordered VTE Drug Contraindication: Treatment Not Indicated
[2022-06-28 12:40] LABS: Lactate Dehydrogenase 449 U/L (122-220)
--- NOTE | 2022-06-28 14:24 | MHC.CM.PN ---
PATIENT LIVES WITH HER SIGNIFICANT OTHER, LIZ SHE PLANS TO ASK HIM IF HE WILL SERVE HER HCP AGENT. IF SO, DOCUMENT TO BE COMPLETED HERE PATIENT DOES NOT HAVE A PCP. SHE IS UNABLE TO SECURE ONE OR A DENTIST SECONDARY TO HER INSURANCE PLAN NOT BEING ACCEPTED SHE DOES SEE A NEUROLOGIST AT [address] [place] [address] IN [facility], BUT IS UNABLE TO RECALL THE NAME OF HER PROVIDER. PATIENT WAS RECEIVING IV INFUSIONS EVERY 4 WEEKS IN [place], [place]. THIS WEEK SHE HAD HER FIRST OF 3 INFUSIONS LOCALLY, AND REPORTS NOT BEING ABLE TO WALK UP HER STAIRS FOLLOWING CASE MANAGEMENT FOLLOWING.
--- NOTE | 2022-06-28 14:36 | P.CNHO_ITS ---
Subjective - Subjective Chief complaint: Tooth pain Patient: new to practice Consult date: 06/28/22 Requesting Physician: Dr. Bernabe Primary Care Provider: [facility] HPI - Consult Narrative Reason for consult: Macrocytic anemia Narrative: Miriam Cole is a 51 year old female admitted for severe anemia and liver function abnormalities. She presented to the emergency department because of right upper molar tooth pain, she thought she had an abscess and since she did not have a dentist she wanted the abscess drain. She has a past history significant for multiple sclerosis and alcoholism. She quit drinking about 2 months ago. She has been a heavy drinker in the past with 10+ drinks on a daily basis. She denies any history of liver disease in the past. She never saw scanning tech previously. In the ED, she was noted to be jaundiced and had blood work which revealed total bilirubin of 7.4 with AST 156, ALT 85 and alk phos of 514. Hemoglobin was 8.2 with an MCV of 110.9. CT abdomen/pelvis showed large cystic mass in the [place] duodenal/pancreatic region of indeterminate origin. No significant biliary ductal dilatation noted. Patient denies any abdominal pain, nausea or emesis. No fever or chills. No recent antibiotics, loss of appetite or weight loss. She just established with a local neurologist for treatment of multiple sclerosis, [facility] for multiple sclerosis in [place]. She used to receive Tysabri in [facility] previously. Review of Systems - Constitutional Reports as per HPI, Denies fatigue, Denies lack of energy, Denies malaise, Denies poor appetite, Denies weight loss - Cardiovascular Reports no additional cardiovascular complaints - Respiratory Reports no additional respiratory complaints - Gastrointestinal Reports no additional gastrointestinal complaints Oncology Screenings - ECOG Performance Status ECOG Performance Status: 1 [facility] Medical History: Medical History (Last Updated 06/28/22 @ 15:28 by Blanca Babb MD) Multiple sclerosis Social History: Social History (Last Reviewed 06/27/22 @ 18:22 by FREDO Cheung) Living Situation History: Household Members: Significant Other Housing: Apartment Do you presently have visiting nurse or other home services: No Tobacco History: Patient Tobacco Use Status: Never used Tobacco Tobacco use type: Cigarette e-Cigarette/Vaping Use: Never Used Occupation Assessmet: service: No Current occupational status: disabled Home Medications and Allergies Current Medications: Current Medications Acetaminophen (Acetaminophen 325 Mg Tablet) 650 mg PO Q6H PRN PRN Reason: Pain, Mild (Pain Scale 1-3) Amoxicillin/Clavulanate Potassium (Amoxicillin/Potassium Clav 875 Mg Tablet) 875 mg PO BID [facility] Last Admin: 06/28/22 07:59 Dose: 875 mg Docusate Sodium (Docusate Sodium 100 Mg Capsule) 100 mg PO DAILY PRN PRN Reason: Constipation Folic Acid (Folic Acid 1 Mg Tablet) 1 mg PO DAILY [facility] Last Admin: 06/28/22 07:59 Dose: 1 mg Multivitamins/Vitamin C (Multivitamin Tablet) 1 tab PO DAILY [facility] Stop: 06/30/22 18:59 Last Admin: 06/28/22 07:59 Dose: 1 tab Ondansetron HCl (Ondansetron Hcl 4 Mg/2 Ml Vial) 4 mg IVPUSH Q8H PRN PRN Reason: Nausea and Vomiting Sodium Chloride (0.9 % Sodium Chloride Flush 3 Ml Syringe) 3 ml IVFLUSH QSHIFT [facility] Last Admin: 06/28/22 10:11 Dose: Not Given Thiamine HCl (Thiamine Hcl 100 Mg Tablet) 100 mg PO DAILY [facility] Stop: 06/30/22 18:59 Last Admin: 06/28/22 07:59 Dose: 100 mg Allergies Allergy/AdvReac Type Severity Reaction Status Date / Time No Known Allergies Allergy Verified 06/27/22 08:37 Physical Exam Vital signs: Vital Signs Temp 97.2 F 06/28/22 14:35 Pulse 82 06/28/22 14:35 Resp 18 06/28/22 14:35 BP 103/51 L 06/28/22 14:35 Pulse Ox 97 06/28/22 07:41 O2 Del Method Room Air 06/28/22 07:41 Intake & Output 06/27/22 06/28/22 06/28/22 18:59 06:59 18:59 Intake Total 999. [id number] 2297.667 / 1111.667 Output Total 50 / 50 Balance 999. [id number] 8829.667 / 1061.667 Urine Output (Average ml/kg/hr) 0.09 Intake: Intake, Oral Amount 0 / 0 330 / 330 Intake, IV Amount 999.333 998.333 / 1997.333 781.667 / 781.667 0.9 % Sodium Chloride 1,000 ml 1000 / 1000 @ 999 mls/hr IV .Q1H1M [facility] Rx#: [id number] Lactated Ringers 1,000 ml @ 100 998.333 / 998.333 781.667 / 781.667 mls/hr IVCONT .Q10H [facility] Rx#: [id number] Output: Output, Urine Amount 50 / 50 Other: Number of Unmeasured Voids 2 1 Number of Bowel Movements 0 Urine Bathroom Bedside Commode Urine Color Tea Last Bowel Movement 06/26/22 Weight 110 kg 46.8 kg [place] Weight in Grams 44162 Weight 46.8 kg - Constitutional Present: no acute distress, average body habitus - Routine HEENT Exam Eye: Present: EOMI, normal appearance, PERRL - Routine Neck Exam Present: supple. Absent: lymphadenopathy - Routine Respiratory Exam Present: CTAB. Absent: accessory muscle use - Routine Cardiovascular Exam Cardiovascular: Present: RRR, S1, S2 - Routine Abdominal Exam Present: soft - Routine Extremities Exam Present: pulses intact. Absent: pedal edema - Routine Skin Exam Present: jaundice - Routine Neurological Exam Present: alert, oriented X3 Hem/Onc Consult Result - Labs CBC & Chem 7: 06/30/22 06:19 06/30/22 06:19 Labs: Short CBC 06/28/22 Range/Units 05:25 WBC 12.0 H (4.8-10.8) X10*3/uL Hgb 6.6 L* (12.0-16.0) g/dl Hct 21.2 L (37.0-47.0) % Plt Count 384 (160-400) X10*3/uL BMP 06/27/22 06/28/22 23:31 05:25 Sodium 139 137 Potassium 3.1 L 4.4 D Chloride 101 105 Carbon Dioxide 29 27 BUN 3 L < 3 L Creatinine 0.45 L 0.41 L Calcium 7.9 L D 7.7 L Liver Function 06/28/22 06/28/22 Range/Units 05:25 07:45 Total Bilirubin 5.6 H 5.8 H (0.0-1.0) mg/dL Direct Bilirubin 4.0 H (0.0-0.5) mg/dL GGT 1076 H (7-33) U/L AST 140 H 137 H (5-31) U/L ALT 68 H 68 H (0-31) U/L Alkaline Phosphatase 389 H 389 H (39-117) U/L Albumin 2.0 L 2.0 L (3.5-5.0) g/dL Urine 06/27/22 Range/Units 17:35 Urine Color Dark Yellow Urine Appearance Clear Urine pH 6.0 (5.0-9.0) Ur Specific [place] >= 1.030 H (1.005-1.025) Urine Protein 30 (1+) H (Neg-Trace) mg/dL Urine Glucose (UA) Negative (Negative) mg/dL Assessment and Plan Patient Active problem list reviewed?: Yes (1) Anemia Status: Acute Assessment and plan: 1. This is a 51-year-old woman with past medical history significant for multiple sclerosis and past alcohol abuse presenting with macrocytic anemia, hyperbilirubinemia with transaminitis and large cystic mass in the periduodenal/pancreatic region of indeterminate origin. I received records from [facility]. She was seen by Dr. Jaonne Sauceda, scanning tech on 06/01/2022 at the request of her neurologist Dr. Rangel with the [facility]. At the time of his evaluation, patient's hemoglobin was 12.6 with an MCV of 110.6. She had normal platelet counts, liver functions showed a bilirubin of 1.3, AST 282, ALT 78. At that point patient was drinking 1 pt of vodka per day and her LFTs suggested alcoholic liver disease. She was also found to have low albumin which could either be due to malnutrition or sign of advanced liver disease. She appears to not have had any imaging of the liver at that time. Her vitamin B12 and folic acid levels are normal. She has macrocytosis with elevated reticulocyte count and liver function abnormalities. Therefore both liver disease and reticulocytosis could contribute to macrocytosis. History of alcohol abuse which could also be contributing to macrocytosis. Hemolysis is possible with underlying liver disease. She has mostly direct hyperbilirubinemia, haptoglobin level is pending. Hepatitis serologies pending. She will need further evaluation as recommended Dr. Olson for this cystic mass. I will be happy to follow up with her upon discharge. - Time Spent With Patient Time Spent with Patient (in minutes): 20
--- NOTE | 2022-06-28 20:30 | CONS_ITS ---
DATE OF SERVICE: 06/28/2022 REASON FOR CONSULTATION: Jaundice and abnormal CT scan of the abdomen. HISTORY OF PRESENT ILLNESS: The patient is a 51-year-old female with a longstanding history of alcohol abuse, although she describes sobriety now for about 2 months. She came to the ER yesterday for a dental abscess, which was treated, but was noted to be jaundiced. She subsequently was admitted for further evaluation. The patient does describe that she has had signs of jaundice for about 2 weeks now. During this time, she did not experience any abdominal pain, anorexia, vomiting, nor fevers. She does not use any prescription medication and has not been using any other medication such as acetaminophen nor NSAIDs. She denies any previous history of liver disease or pancreatic disease despite her drinking. She denies any known family history of liver disease, pancreatic disease, nor GI malignancy. Since admission here, she has been feeling well. She does have underlying multiple sclerosis and has been having some paresthesias and some other lower extremity symptoms. However, she denies any abdominal pain since admission. There has been no vomiting nor fevers. At home she reports that her bowel movements have been fairly regular and without any hematochezia nor melena. She denies having seen other GI providers and again denies any previous history of pancreatic or liver disease. MEDICATIONS: Her medications at home: none. Medications here in the hospital include acetaminophen p.r.n., Augmentin, Colace, folic acid, vitamins, Zofran p.r.n., thiamine. PAST MEDICAL HISTORY: , tubal ligation, laser surgery on her cervix, multiple sclerosis. She denies history of heart disease, diabetes, lung disease, stroke, nor kidney disease. Alcohol abuse. SOCIAL HISTORY: She has a boyfriend. She smokes cigarettes. She denies any drug use presently nor in the past. She had been a heavy drinker, but again reports sobriety for about 2 months now. She does not work. FAMILY HISTORY: Noncontributory. REVIEW OF SYSTEMS: CONSTITUTIONAL: She has been having some weakness in her lower extremities, but otherwise appetite has been good. SKIN: No rash, no pruritus, although has been noted to be jaundiced. CARDIAC: No chest pain. PULMONARY: No coughing, no hemoptysis. GI: As above. URINARY: No dysuria, no hematuria. NEUROLOGIC: As above with multiple sclerosis. PSYCHIATRIC: Negative. PHYSICAL EXAMINATION: GENERAL: The patient is a pleasant, alert, comfortable appearing female. She does have yellow jaundice. SKIN: Warm and dry. No obvious spider angiomata. HEENT: Icteric sclerae. Moist mucous membranes. NECK: Supple without lymphadenopathy. CHEST: Clear. CARDIAC: Normal S1, S2. ABDOMEN: Soft, nondistended, nontender. There is no palpable mass, rebound, or guarding. EXTREMITIES: Without edema. There is no palmar erythema. NEUROLOGIC: She is alert and oriented, and converses appropriately. LABORATORY DATA: White blood cell count 11.4, hemoglobin 8.2, MCV 111, platelets 246,000. Stool is hemoccult negative. PT 12.2 with INR 1.1. Normal electrolytes. BUN 3, creatinine 0.45. Total bilirubin yesterday was 7.4 and today is 5.6. Direct and indirect bilirubin are pending. AST 140, ALT 68. Alk phos yesterday was 514 and today is 289. Albumin 2.0. Vitamin B12 is 1982, folate 5.1. Amylase and lipase are pending. She had a CT scan of the abdomen yesterday without contrast describing a probable fatty liver, but without any signs of cirrhosis. There is no biliary obstruction. The pancreas is described as normal without any pancreatic ductal dilatation. There is no splenomegaly nor any reported ascites. The GI tract was notable for a large cystic fluid mass measuring at least 7 cm in the region of the third and fourth portion of the duodenum, which was felt to possibly represent a pseudocyst, large duodenal diverticulum, or possible neoplasm in the region of the pancreas and/or duodenum. She did have a followup abdominal ultrasound, which describes a distended gallbladder and the above described cystic lesion in the region of the duodenum and gallbladder. There did not appear to be any definitive biliary obstruction. IMPRESSION: Given the patient's clinical history and workup, her jaundice does not appear to be definitively related to biliary obstruction at this time. However, given the presence of this abnormality in the region of the pancreas and duodenum, she may very well be having some transient biliary obstruction from this lesion, whether it is a large duodenal diverticulum or pancreatic primary lesion. She appears to have good liver function based on her PT with INR, physical exam, and platelet count. However, she does obviously have a low albumin and high MCV indicative of possibly some underlying liver disease and/or malnutrition. At this point, I would recommend further workup with MRI with MRCP of the abdomen to further evaluate this lesion and its potential relation to the pancreatic and biliary ducts. I think a CT with oral contrast to assess for duodenal diverticulum would be helpful as well. I will continue to follow her LFTs. She has already had hepatitis serologies and they are pending. At this point, I do not think ERCP is required, but she may need further testing with endoscopic ultrasound. Once she has had her imaging studies done, then she could be on a regular diet. I did review this with her in detail. Thank you for the consultation. MD NAEL Anderson/ERICKSON / [phone] MTDD
[2022-06-29] MEDS: Barium Sulfate Oral (Vanilla) 450 ML ORAL.SUSP 900 ML PO (00:26)
[2022-06-29] MEDS: iohexoL 350 MG/ML 100 ML INFUS..BTL 85 ML IV (00:27)
[2022-06-29] MEDS: Amoxicillin/Potassium Clav 875 MG TABLET PO ×3 (00:31→20:06)
[2022-06-29 04:00] VITALS: BP 109/75; PULSE 75; RESP 17; TEMP 36.2; O2SAT 100
[2022-06-29 04:42] LABS: HBc Num1 0.12 S/CO (0.00-0.79); HBsAGNum1 0.26 S/CO (0.00-0.99); HIV AB/AG Nonreactive (Nonreactive); HIV Num 1 0.06 S/CO (0.00-0.99); Hepatitis B Core Antibody Nonreactive (Nonreactive); Hepatitis B Surface Antigen Negative (Negative); ~HepC Num1 0.09 S/CO (0.00-0.79); ~Hepatitis B Surface Antibody NONREACTIVE (Nonreactive); ~Hepatitis C Antibody Nonreactive (Nonreactive)
[2022-06-29 07:06] LABS: Hemoglobin 10.2 g/dl (12.0-16.0); Mean Corpuscular HGB Conc 32.9 g/dl (31.0-35.0); Mean Corpuscular Hemoglobin 33.8 pg (27.0-33.0); Mean Corpuscular Volume 102.6 fL (80.0-98.0); Mean Platelet Volume 10.2 fL (9.4-12.3); NRBC Pct Auto 0.2 /100WBC (0.0-0.2); Platelet Count 363 X10*3/uL (160-400); Red Blood Count 3.02 X10*6/uL (4.20-5.50); Red Cell Distribution Width 22.5 % (11.0-16.0); White Blood Count 13.8 X10*3/uL (4.8-10.8)
[2022-06-29 07:21] LABS: Anion Gap 9 (12-20); Blood Urea Nitrogen < 3 mg/dL (9-16); Calcium 7.9 mg/dL (8.4-10.2); Carbon Dioxide 25 mmol/L (22-29); Chloride 105 mmol/L (96-108); Creatinine Clr Calc Pharmacy 110.5; Estimated Glomerular Filt Rate > 60; Glucose Random 75 mg/dL (60-115); Potassium 3.9 mmol/L (3.3-5.1); Sodium 135 mmol/L (135-145)
[2022-06-29 07:23] LABS: Alanine Aminotransferase 70 U/L (0-31); Albumin Level 2.1 g/dL (3.5-5.0); Alkaline Phosphatase 397 U/L (39-117); Aspartate Amino Transferase 122 U/L (5-31); Bilirubin Direct 4.9 mg/dL (0.0-0.5); Bilirubin Total 7.7 mg/dL (0.0-1.0); Total Protein 4.1 g/dL (6.5-8.0)
[2022-06-29 08:00] VITALS: BP 112/61; PULSE 72; RESP 18; TEMP 36.6; O2SAT 100
[2022-06-29] MEDS: Folic Acid 1 MG TABLET PO (09:28)
[2022-06-29] MEDS: Multivitamin TABLET 1 TAB PO (09:28)
[2022-06-29] MEDS: 0.9 % Sodium Chloride Flush 3 ML SYRINGE IVFLUSH ×2 (09:29→20:14)
[2022-06-29] MEDS: Thiamine HCL 100 MG TABLET PO (09:29)
--- NOTE | 2022-06-29 12:52 | MHC.CM.PN ---
CURRENTLY AWAITING IMAGING NO PLAN FOR DC TODAY
--- NOTE | 2022-06-29 13:40 | HO.PM.IMPN ---
Subjective Subjective Date of Service: 06/29/22 Interval History: Seen and evaluate this morning Feels better overall Hb of 10 after transfusion no other overnight events Review of Systems Review of Systems: Yes all other systems are reviewed and are negative Physical Exam Vital Signs: Vital Signs: Last Vital Signs Temp 97.8 F 06/29/22 08:00 Pulse 72 06/29/22 08:00 Resp 18 06/29/22 08:00 BP 112/61 06/29/22 08:00 Pulse Ox 100 06/29/22 08:00 O2 Del Method Room Air 06/29/22 08:00 BMI result Body Mass Index 20.8 Const: Other: Constitutional : Awake, interactive,jaundiced, not in distress Neck : Normal inspection, Supple Cardiovascular : RRR, no JVP, no lower extremity edema Respiratory : good bilateral air entry, no crackles, wheezes or rhonchi Gastrointestinal: soft, lax, Normal bowel sounds, Non tender Skin : Warm, Dry Neurological : Alert & oriented x3, No focal deficit Objective Data Active Medications Acetaminophen (Acetaminophen 325 Mg Tablet) 650 mg PO Q6H PRN PRN Reason: Pain, Mild (Pain Scale 1-3) Amoxicillin/Clavulanate Potassium (Amoxicillin/Potassium Clav 875 Mg Tablet) 875 mg PO BID [facility] Last Admin: 06/29/22 09:29 Dose: 875 mg Documented By: SUNNY Docusate Sodium (Docusate Sodium 100 Mg Capsule) 100 mg PO DAILY PRN PRN Reason: Constipation Folic Acid (Folic Acid 1 Mg Tablet) 1 mg PO DAILY [facility] Last Admin: 06/29/22 09:28 Dose: 1 mg Documented By: SUNNY Multivitamins/Vitamin C (Multivitamin Tablet) 1 tab PO DAILY [facility] Stop: 06/30/22 18:59 Last Admin: 06/29/22 09:28 Dose: 1 tab Documented By: SUNNY Ondansetron HCl (Ondansetron Hcl 4 Mg/2 Ml Vial) 4 mg IVPUSH Q8H PRN PRN Reason: Nausea and Vomiting Sodium Chloride (0.9 % Sodium Chloride Flush 3 Ml Syringe) 3 ml IVFLUSH QSHIFT [facility] Last Admin: 06/29/22 09:29 Dose: 3 ml Documented By: SUNNY Thiamine HCl (Thiamine Hcl 100 Mg Tablet) 100 mg PO DAILY [facility] Stop: 06/30/22 18:59 Last Admin: 06/29/22 09:29 Dose: 100 mg Documented By: SUNNY Labs 06/29/22 05:58 06/29/22 05:58 Labs: Laboratory Results - last 24 hr 06/27/22 06/27/22 06/29/22 09:51 18:00 05:58 MCV 102.6 H D MCH 33.8 H MCHC 32.9 RDW 22.5 H Plt Count 363 MPV 10.2 Absolute Nucleated RBC 0.030 H Nucleated RBC % (auto) 0.2 Anion Gap Estim Creat Clear Calc Estimated GFR Random Glucose Calcium Total Bilirubin Direct Bilirubin AST ALT Alkaline Phosphatase Total Protein Albumin Hep Bs Antigen Negative Hep Bs Antibody NONREACTIVE Hep B Core Total Ab Nonreactive Hepatitis C Ab (EIA) Nonreactive HIV 1&2 Ab/P24 Ag 4thGn Nonreactive Blood Type O Negative Antibody Screen NEGATIVE Crossmatch See Detail Crossmatch (AHG) See Detail 06/29/22 06/29/22 05:58 05:58 MCV MCH MCHC RDW Plt Count MPV Absolute Nucleated RBC Nucleated RBC % (auto) Anion Gap 9 L Estim Creat Clear Calc 110.5 Estimated GFR > 60 Random Glucose 75 Calcium 7.9 L Total Bilirubin 7.7 H Direct Bilirubin 4.9 H AST 122 H ALT 70 H Alkaline Phosphatase 397 H Total Protein 4.1 L Albumin 2.1 L Hep Bs Antigen Hep Bs Antibody Hep B Core Total Ab Hepatitis C Ab (EIA) HIV 1&2 Ab/P24 Ag 4thGn Blood Type Antibody Screen Crossmatch Crossmatch (AHG) Microbiology Microbiology Results: Microbiology 06/27/22 17:57 Urine Culture - Preliminary Urine clean catch - Urine chahal top Gram negative jenni Assessment and Plan (1) Jaundice: Status: Acute (2) Transaminitis: Status: Acute (3) Dental abscess: Status: Acute Plan Pt is a 51-year-old female with a PMH significant for?MS, HLD, current half pack smoker, and hx of heavy alcohol use who initially presents to the ED with right upper molar dental pain. Pt will be admitted to the hospital for treatment further evaluation of jaundice Likely secondary to pancreatic cystic mass. Pancreatic cystic mass Patient with jaundice, hyperbilirubinemia, transaminitis, and elevated ferritin CT scan revealed a large cystic mass in the periduodenal/pancreatic region of indeterminate origin that his displaced and distorted adjacent structures Pseudocyst vs neoplasm vs large duodenal diverticula vs gastrointestinal duplication cyst MRCP showing possible pseudocyst Pending CT abd with contrast for Diverticula Pending CA19-9 GI consult, Bili not from obstruction, will need OP endoscopic ultrasound DC IVF after imaging Jaundice/hyperbilirubinemia/transaminitis could be secondary to intermittent biliary ductal obstruction by cystic mass vs liver disease negative hepatitis panel acute on chronic Macrocytic anemia Hb improved to 10 after transfusion stool negative for occult blood normal B12, folate Supplement with B12, folic acid, multivitamin Hematology eval Hypokalemia resolved Dental abscess Drained in the ED Continue Augmentin, started 06/27/2022 UTI UA positive for UTI Patient asymptomatic: No polyuria, no dysuria Patient covered by Augmentin, started 06/27/2002 Follow cultures MS Patient is seen by Neurology in [place] in the past Patient has not been taking any medication since temporarily moving to [place] 3 months ago Patient has yet to reestablish Neurology care in [place] Should follow up outpatient, establish care, resume home meds HLD Not currently on home meds Check lipid panel Patient should reestablish PCP care and resume home meds Nicotine dependence Patient is a current half a day smoker Declines nicotine replacement therapy at this time Full Code DVT Prophylaxis: Pneumatic boots Pt will require a hospitalization overnight for treatment and further evaluation of pancreatic cystic mass of undetermined origin. Time Spent With Patient Time: Total time managing care of this patient today ____ minutes. Quality Stroke Does the patient have a stroke diagnosis?: No VTE Prior VTE?: No VTE Risk Level:: Medical - moderate - high VTE Device Contraindication: N/A - Device Ordered VTE Drug Contraindication: Treatment Not Indicated
[2022-06-29 15:26] VITALS: BP 110/69; PULSE 82; RESP 18; TEMP 36.6; O2SAT 98
[2022-06-29 20:00] VITALS: BP 117/68; PULSE 74; RESP 18; TEMP 36.6; O2SAT 99
[2022-06-30 03:53] VITALS: BP 108/68; PULSE 77; RESP 18; TEMP 36.4; O2SAT 98
[2022-06-30 06:38] LABS: Hematocrit 32.5 % (37.0-47.0); Hemoglobin 10.3 g/dl (12.0-16.0); Mean Corpuscular HGB Conc 31.7 g/dl (31.0-35.0); Mean Corpuscular Hemoglobin 33.1 pg (27.0-33.0); Mean Corpuscular Volume 104.5 fL (80.0-98.0); Mean Platelet Volume 9.6 fL (9.4-12.3); Platelet Count 387 X10*3/uL (160-400); Red Blood Count 3.11 X10*6/uL (4.20-5.50); Red Cell Distribution Width 21.4 % (11.0-16.0); White Blood Count 12.6 X10*3/uL (4.8-10.8)
[2022-06-30 06:52] LABS: Anion Gap 11 (12-20); Blood Urea Nitrogen < 3 mg/dL (9-16); Carbon Dioxide 24 mmol/L (22-29); Chloride 103 mmol/L (96-108); Creatinine Clr Calc Pharmacy 107.9; Estimated Glomerular Filt Rate > 60; Glucose Random 83 mg/dL (60-115); Potassium 4.2 mmol/L (3.3-5.1); Sodium 134 mmol/L (135-145)
[2022-06-30 06:55] LABS: Alanine Aminotransferase 63 U/L (0-31); Albumin Level 2.1 g/dL (3.5-5.0); Alkaline Phosphatase 430 U/L (39-117); Aspartate Amino Transferase 109 U/L (5-31); Bilirubin Direct 3.5 mg/dL (0.0-0.5); Bilirubin Total 5.2 mg/dL (0.0-1.0); Total Protein 4.2 g/dL (6.5-8.0)
[2022-06-30 07:11] VITALS: BP 119/79; PULSE 78; RESP 18; TEMP 36.9; O2SAT 98
[2022-06-30] MEDS: Multivitamin TABLET 1 TAB PO (09:16)
[2022-06-30] MEDS: Folic Acid 1 MG TABLET PO (09:16)
[2022-06-30] MEDS: Thiamine HCL 100 MG TABLET PO (09:16)
[2022-06-30] MEDS: Amoxicillin/Potassium Clav 875 MG TABLET PO (09:16)
[2022-06-30] MEDS: 0.9 % Sodium Chloride Flush 3 ML SYRINGE IVFLUSH (09:16)
--- NOTE | 2022-06-30 09:27 | PM.DS ---
DS: Providers Provider Date of Service: 06/30/22 Date of admission: 06/27/22 19:08 Primary care physician: [facility] Consults: 06/27/22 17:09 Consult to Gastroenterology Stat Consulting Provider: Julio Cesar Olson Reason for consultation: Jaundice, hepatitis, pancreatic mass Has provider been notified: Yes 06/28/22 12:25 Consult to Hematology / Oncology Routine Consulting Provider: Blanca Babb Reason for consultation: Pancreatic mass, Macrocytic anemia DS: Diagnosis Discharge Diagnosis (1) Jaundice: Status: Acute (2) Transaminitis: Status: Acute (3) Dental abscess: Status: Acute DS: Summary Hospital Course Hospital Course: Admission note HPI Pt is a 51-year-old female with a PMH significant for?MS, HLD, current half pack smoker, and hx of heavy alcohol use who initially presents to the ED with right upper molar dental pain.? Patient was found to have an abscess which was drained in the ED and patient prescribed Augmentin.? While in the ED patient was noted to look quite jaundiced. Patient states that her boyfriend point this out to her? a couple of weeks ago, but she ignored his comments thinking he was making fun of her. Pt has a long history of drinking heavily on the weekends, and recently moved to [place] where she was drinking 10+ drinks daily for the past three months. Says she has quit drinking since moving back to the [facility].? Patient currently denies fever, chills, nausea, vomiting, diarrhea.? No abdominal pain.? Patient denies chest pain/pressure, palpitations.? No shortness of breath.? Patient states she is unaware of any recent unexplained weight loss.? Denies hematochezia, melena.? Denies lightheadedness, dizziness, fatigue.? Patient states she used to be on MS medications in the past, but has not been on any medications since before moving to [place] since she had not established either PCP or Neurology care either in [place] or up here in [place].? Patient has chronic numbness and tingling in her lower extremities due to side effect from previous MS medication. In the ED labs were significant for leukocytosis of 11.4, H&H of 8.2/25.4, MCV of 110.9, potassium 2.8, ferritin of 2050, total bilirubin 7.4, AST 156, ALT 85, alk-phos 514.? Stool negative for occult blood.? UA positive for UTI.? Hepatitis panel pending. CT?of abdomen/pelvis showed large cystic mass in the periduodenal/pancreatic region of indeterminate origin that has displaced adjacent structures:Pseudocyst vs neoplasm vs large duodenal diverticula vs gastrointestinal duplication cyst.? No significant biliary ductal dilation was shown however intermittent biliary ductal obstruction of the cystic mass cannot be excluded. U/S of abdomen pending.?Pt was treated with potassium chloride, Augmentin, and IVF. Pt will be admitted to the hospital for treatment further evaluation of jaundice Likely secondary to pancreatic cystic mass. Hospital course Pancreatic cystic mass Patient presebted with jaundice, hyperbilirubinemia, transaminitis, and elevated ferritin CT scan revealed a large cystic mass in the periduodenal/pancreatic region of indeterminate origin that his displaced and distorted adjacent structures. MRCP showing possible pseudocyst. A CT Abd\pelvis with oral contrast was more suggestive of Pseudocyst vs neoplasm or duodenal diverticula. Pending CA19-9 at time of discharge. GI consult, Bili not from obstruction, will need OP endoscopic ultrasound but should be stable to follow in the clinic. Her INR within normal. Jaundice/hyperbilirubinemia/transaminitis could be secondary to intermittent biliary ductal obstruction by cystic mass vs chronic liver disease from alcoholism. negative hepatitis panel. to repeat blood tests as outpatient. acute on chronic Macrocytic anemia Hb improved to 10 after transfusion of 2 units as the patient was noticed to have drop of Hb to 6.6 with no overt bleeding, partially dilutional. stool negative for occult blood. normal B12, folate. Supplement with B12, folic acid, multivitamin as she was evaluated by hematology team. no strong evidence of hemolysis. haptoglobin remains pending with high retic count and LDH. Hematology eval Dental abscess Drained in the ED. Continue Augmentin for total of 10 days. Plan: Continue Antibiotics as prescribed we advise you complete abstinence from alcohol To follow up with dr Olson after calling the clinic for further work up and monitoring of liver enzymes To repeat blood test next week Time Spent with Patient Time attestation: Total time managing care of this patient today ____ minutes. Discharge coordination time: Greater than 30 minutes Quality: Safe Use of Opioids Does Pt have an Active Cancer Diagnosis on the Problem List?: No Quality: Stroke Does the patient have a stroke diagnosis?: No Physical Exam Vital Signs: Vital Signs: Last Vital Signs Temp 98.4 F 06/30/22 07:11 Pulse 78 06/30/22 07:11 Resp 18 06/30/22 07:11 BP 119/79 06/30/22 07:11 Pulse Ox 98 06/30/22 07:11 O2 Del Method Room Air 06/30/22 07:11 BMI result Body Mass Index 20.8 Const: Other: Constitutional : Awake, interactive,jaundiced, not in distress Neck : Normal inspection, Supple Cardiovascular : RRR, no JVP, no lower extremity edema Respiratory : good bilateral air entry, no crackles, wheezes or rhonchi Gastrointestinal: soft, lax, Normal bowel sounds, Non tender Skin : Warm, Dry Neurological : Alert & oriented x3, No focal deficit DS: Data Data Completed and Pending Labs on day of discharge: Laboratory Results - last 24 hr 06/30/22 06/30/22 06/30/22 06:19 06:19 06:19 WBC 12.6 H RBC 3.11 L Hgb 10.3 L Hct 32.5 L MCV 104.5 H MCH 33.1 H MCHC 31.7 RDW 21.4 H Plt Count 387 MPV 9.6 Absolute Nucleated RBC 0.000 Nucleated RBC % (auto) 0.0 Sodium 134 L Potassium 4.2 Chloride 103 Carbon Dioxide 24 Anion Gap 11 L BUN < 3 L Creatinine 0.43 L Estim Creat Clear Calc 107.9 Estimated GFR > 60 Random Glucose 83 Calcium 8.0 L Total Bilirubin 5.2 H Direct Bilirubin 3.5 H AST 109 H ALT 63 H Alkaline Phosphatase 430 H Total Protein 4.2 L Albumin 2.[address] scan - abdomen: Radiologist's impression: ITS Impressions Abdomen/Pelvis CT 06/27/22 14:42 IMPRESSION: 1. Large cystic mass in the periduodenal/pancreatic region of indeterminate origin. This could represent a pseudocyst with questionable connectivity to either the uncinate process of the pancreas and/or third segment duodenum. Adjacent structures are displaced and distorted by the presence of the cyst. Other considerations include large duodenal diverticulum and gastrointestinal duplication cyst. Primary exophytic pancreatic cystic neoplasm or duodenal cystic neoplasm cannot be excluded as well. Gastrointestinal consultation is recommended. A repeat CT scan of the abdomen with intravenous contrast as well as oral contrast should be considered. Contrast-enhanced abdominal MRI may be of value as well. 2. Hepatic steatosis. No significant biliary ductal dilatation however intermittent biliary ductal obstruction by the cystic mass cannot be excluded. Abdomen Ultrasound 06/27/22 17:11 IMPRESSION: Large complex mass posterior to gallbladder is surrounded by transverse colon inferiorly and the duodenum and within this process superiorly. Recommend follow-up as suggested on CT abdomen exam. Echogenic gallbladder bile without any echogenic stones. Cholangiopancreatography MRI 06/28/22 12:40 IMPRESSION: 1. Complex cystic structure extending inferiorly from the region of the head of the pancreas. This is of uncertain etiology on MRI, particularly given the lack of IV contrast. The appearance does favor a pseudocyst, though as previously suggested on CT, cannot exclude duodenal diverticulum. It appears that a CT with oral contrast is pending. 2. Hepatic steatosis. No biliary ductal dilatation. 3. Layering material within the gallbladder lumen which could represent stones or sludge. No wall thickening. Abdomen/Pelvis CT 06/29/22 00:28 IMPRESSION: 1. Stable cystic lesion inferior to the head of pancreas and posterior inferior to the duodenum with mild to moderate mass effect on the adjacent structures such as the duodenum and transverse colon. The cystic mass is probably benign. It is not a duodenal diverticulum and may represent a pseudocyst or a duplication cyst. If there is a clinical concern for diagnosis or decompression a CT guided needle aspiration can be performed for further evaluation. 2. Diffuse hepatic steatosis with areas of focal fatty sparing adjacent to gallbladder and right lateral hepatic lobe. 3. Mild constipation. Fleischner guidelines were followed. Discharge Plan Discharge Anticipated Discharge Date/Time: 06/30/22 09:21 Patient Disposition: Home, Self-Care Discharge Diagnosis: Pancreas mass Elevated liver enzymes Dental abscess Referrals: [facility] [Primary Care Provider] - 1 Week Discharge Medications: New folic acid 1 mg Tablet 1 mg PO DAILY Qty: 30 0RF amoxicillin-pot clavulanate 875-125 mg Tablet 875 mg PO BID Qty: 14 0RF thiamine mononitrate (vit B1) 100 mg Tablet 100 mg PO DAILY Qty: 30 0RF omeprazole 20 mg capsule,delayed release(DR/EC) 20 mg PO DAILY Qty: 30 0RF Discharge Orders: Discharge Order (Routine); Ordered 06/30/22 Ordered By: Samantha Bernabe Diet: Advance to usual diet Activity on Discharge: As tolerated Stand Alone Forms: Patient Portal Discharge page Other Ambulatory Orders: Complete Blood Count no Diff (Routine) Timeframe: 5 Days Facility: [facility] - Location: Laboratory Ordered By: Samantha Bernabe Liver Panel (Routine) Timeframe: 5 Days Facility: [facility] - Location: Laboratory Ordered By: Samantha Bernabe Care Plan Goals: Read below Health Concerns: Read below Plan of Treatment: Read below Assessment: You were admitted for evaluation of jaundice. found to have pancrease cyst and elevated liver enzymes evaluated by dr Olson from gastroenterology who recommended outpatient follow up as your images showed a likely pseudocyst related to alcohol intake. Treated for dental abscess with antibiotics after drainage. Continue Antibiotics as prescribed we advise you complete abstinence from alcohol To follow up with dr Olson after calling the clinic for further work up and monitoring of liver enzymes To repeat blood test next week
--- NOTE | 2022-06-30 09:34 | MHC.CM.PN ---
PT TO [facility] HOME TODAY VIA PRIVATE TRANSPORT
[2022-06-30 13:29] LABS: Carbohydrate Antigen 19-9 60 U/mL (<34)
[2022-06-30 18:33] LABS: Haptoglobin 118 mg/dL (43-212)
== END 2022-06-30 10:06 | disposition home or self-care (01) | DRG 98 ==
LOC: HO.ED 17:06 → HO.EDOVER 19:19 → HO.S3 22:04
PROVIDERS: Internal Medicine; Admitting Provider Student in an Organized Health Care Education/Training Program; Emergency Provider Student in an Organized Health Care Education/Training Program; Visit Provider Student in an Organized Health Care Education/Training Program
DX: K04.7 Periapical abscess without sinus (principal); K83.1 Obstruction of bile duct; K86.3 Pseudocyst of pancreas; D53.9 Nutritional anemia, unspecified; D37.8 Neoplasm of uncertain behavior of other specified digestive organs; K70.9 Alcoholic liver disease, unspecified; E78.5 Hyperlipidemia, unspecified; E87.6 Hypokalemia; F10.21 Alcohol dependence, in remission; G35 Multiple sclerosis; K57.10 Diverticulosis of small intestine without perforation or abscess without bleeding; N39.0 Urinary tract infection, site not specified; F17.210 Nicotine dependence, cigarettes, uncomplicated; Z71.6 Tobacco abuse counseling; Z79.899 Other long term (current) drug therapy
CPT/HCPCS: 36415; 74177; 74181; 76705; 80048; 80053; 80061; 80076; 81001; 82150; 82272; 82378; 82607; 82728; 82746; 82977; 83010; 83540; 83615; 83690; 83735; 85025; 85027; 85045; 85610; 86301; 86308; 86704; 86706; 86803; 86850; 86900; 86901; 86920; 86922; 87086; 87088; 87186; 87340; 87389; 99221; 99285; P9016; Q9967

== ENCOUNTER 2022-08-02 10:20 | Outpatient (REF) | payer MEDICAID, SELFPAY ==
[2022-08-02 11:21] LABS: Alanine Aminotransferase 28 U/L (0-31); Albumin Level 3.1 g/dL (3.5-5.0); Alkaline Phosphatase 144 U/L (39-117); Amylase 72 U/L (28-100); Aspartate Amino Transferase 59 U/L (5-31); Bilirubin Direct 0.8 mg/dL (0.0-0.5); Bilirubin Total 1.5 mg/dL (0.0-1.0); Lipase 19 U/L (8-78); Total Protein 5.9 g/dL (6.5-8.0)
[2022-08-04 11:54] LABS: Carbohydrate Antigen 19-9 32 U/mL (<34)
== END 2022-08-02 10:21 | disposition home or self-care (01) ==
LOC: HO.LAB 10:20
PROVIDERS: Visit Provider Internal Medicine
DX: K86.2 Cyst of pancreas (principal); R17 Unspecified jaundice
CPT/HCPCS: 36415; 80076; 82150; 83690; 86301

== ENCOUNTER 2023-05-15 06:52 | Inpatient (IN) | payer MEDICAID, SELFPAY ==
[2023-05-15] VITALS (30 sets, daily range): BP systolic 73–110; BP diastolic 49–75; PULSE 104–136; RESP 11–26; TEMP 36.2–37.3; O2SAT 91–100; BMI 16.9
--- NOTE | ~2023-05-15 | XR_ITS ---
EXAMINATION: PORTABLE CHEST 1 VIEW CLINICAL INFORMATION: hypoxia. COMPARISON: 05/15/2023. TECHNIQUE: Portable frontal view of the chest was obtained. FINDINGS: The lungs are well expanded. There remains mild central vascular prominence and mild increased reticular markings but no superimposed focal infiltrate, effusion, edema, or pneumothorax. Cardiac and mediastinal silhouettes are within normal limits for technique. No acute bony abnormality seen. XR/XR chest 1V IMPRESSION: Mild central vascular prominence and increased reticular markings but no overt edema or focal airspace disease.
--- NOTE | ~2023-05-15 | US_ITS ---
EXAMINATION: US ABDOMEN CLINICAL INFORMATION: Cirrhosis with ascites, rule out portal vein thrombosis COMPARISON: CT abdomen pelvis on 05/15/2023 TECHNIQUE: Real-time imaging of the abdominal viscera. Color and spectral Doppler evaluation of the hepatic vasculature. FINDINGS: LIVER: The liver demonstrates normal size, contour and increased echogenicity. No focal liver lesion. No intrahepatic biliary duct dilatation. HEPATIC VEINS: Patent with normal waveforms. PORTAL VEINS: Patent with normal waveforms and hepatopetal flow. HEPATIC ARTERIES: Normal upstroke and diastolic flow. INFERIOR VENA CAVA: Patent with normal waveforms. GALLBLADDER: Multiple gallstones and biliary sludge. There is diffuse gallbladder wall thickening. The gallbladder is not distended. There is pericholecystic fluid/ascites. COMMON BILE DUCT: Normal in caliber measuring 0.5 cm in diameter. PANCREAS: Normal. The visualized pancreatic head and body are normal in appearance. The remainder of the pancreas is obscured from visualization by the overlying bowel gas. RIGHT KIDNEY: Normal. No hydronephrosis. No renal calculi or focal parenchymal lesions. The kidney measures 10.5 cm in maximum dimension. SPLEEN: The spleen measures 8.0 cm in maximum dimension. SPLENIC VEIN: Patent with normal waveforms. FREE FLUID: Small volume ascites. US/US abdomen limited IMPRESSION: 1. Patent portal vein with appropriate direction of flow. 2. Cholelithiasis and biliary sludge with diffuse gallbladder wall thickening. Findings may be due to ascites, however cholecystitis can not be excluded. 3. Small volume ascites.
--- NOTE | ~2023-05-15 | CT_ITS ---
EXAMINATION: CT ABDOMEN AND PELVIS WITH CONTRAST CLINICAL INFORMATION: Fall, anemia. COMPARISON: CT abdomen and pelvis 06/29/2022. TECHNIQUE: Multidetector volumetric images were obtained from the superior aspect of the liver through the pubic symphysis following administration 85 mL of Omnipaque 350 intravenous contrast. Sagittal and coronal reformatted images were obtained on the technologist's workstation. Oral contrast: No This CT examination was performed using dose optimization techniques as appropriate, variously including the following: *Automated exposure control *Adjustment of mA and/or kV according to patient size (this includes techniques or standardized protocols for targeted exams where dose is matched to indication/reason for exam; i.e. extremities or head) *Use of iterative reconstruction technique DLP: 85 mGy-cm FINDINGS: LUNG BASES: Distal esophageal dilatation and small hiatal hernia. No suspicious abnormalities at the lung bases. There is mild airway wall thickening. LIVER, GALLBLADDER, AND BILIARY TREE: Enlarged 21 cm liver with marked low-attenuation consistent with steatosis. No overt cirrhotic morphology. Cholelithiasis without evidence of acute cholecystitis. PANCREAS: No discrete pancreatic mass or pancreatic ductal dilatation. The previously seen collection inferior to the pancreatic head is resolved. SPLEEN: The spleen is not enlarged. ADRENAL GLANDS: No adrenal mass. KIDNEYS AND URETERS: The kidneys are normal in size, shape, and attenuation. No hydronephrosis, hydroureter, or calculi seen. No perinephric stranding. BLADDER: Unremarkable. GASTROINTESTINAL TRACT: There is diffuse nonspecific small bowel edema more prominent in the jejunum and the rest of the small bowel. There is no evidence of bowel obstruction. The large bowel is normal in caliber. ABDOMINAL WALL: No significant hernia is appreciated. LYMPH NODES: No lymphadenopathy. VASCULAR: Right femoral venous catheter terminates at the mid iliac level. No aortic aneurysm. Moderate aortoiliac atherosclerosis. PELVIC VISCERA: Left gonadal vein reflux. OSSEOUS STRUCTURES: No discrete lower rib fracture. Degenerative changes in the spine. No visible spinal fracture. The pelvic ring is intact. No visible fracture. Generalized osteopenia. CT/CT abdomen pelvis w IV con IMPRESSION: No hematoma to explain anemia. No visible fracture. Enlarged and markedly hypoattenuating liver consistent with steatosis. Query alcohol abuse. Resolution of previously seen peripancreatic fluid collection. Diffuse small bowel edema which is more prominent in the jejunum than the rest of the small bowel and may relate to an enteritis or be related to hypoproteinemia. There is generalized decreased muscle mass which could relate to malnutrition. Osteopenia. Small gallstones without evidence of acute cholecystitis. Fleischner guidelines were followed.
--- NOTE | ~2023-05-15 | XR_ITS ---
EXAMINATION: XR CHEST CLINICAL INFORMATION: Falls COMPARISON: None available. TECHNIQUE: Frontal view of the chest was obtained. FINDINGS: Mild interstitial prominence. No pneumothorax. No pneumothorax. Trachea is midline. Cardiac mediastinal silhouette is not enlarged. No effusion. Osseous structures are intact. Soft tissues are unremarkable. XR/XR chest 1V IMPRESSION: Mild interstitial prominence.
--- NOTE | ~2023-05-15 | US_ITS ---
ULTRASOUND GUIDED DIAGNOSTIC PARACENTESIS HISTORY: Ascites. Liver failure The procedure was deemed medically necessary by the micro computer data processor. Details not provided on this report. A marginally safe pocket of perihepatic ascitic fluid was identified using ultrasound guidance, overlying the cirrhotic liver, and the overlying skin was marked. The abdomen prepped and draped in sterile fashion. 1% lidocaine was used as a local anesthetic. Using ultrasound guidance, a 22-gauge spinal needle was placed into the small perihepatic ascitic pocket. 40 mL of yellow ascites was aspirated. The needle was then removed. A few construction sales representative images from before and after the examination were obtained. The procedure was performed by Rito Randhawa PA-C and supervised by Dr. Alexander. US/US paracentesis abd w/image IMPRESSION: Ultrasound-guided diagnostic paracentesis as described above. No immediate complications
--- NOTE | ~2023-05-15 | US_ITS ---
EXAMINATION: US ABDOMEN CLINICAL INFORMATION: Cirrhosis with ascites, rule out portal vein thrombosis COMPARISON: CT abdomen pelvis on 05/15/2023 TECHNIQUE: Real-time imaging of the abdominal viscera. Color and spectral Doppler evaluation of the hepatic vasculature. FINDINGS: LIVER: The liver demonstrates normal size, contour and increased echogenicity. No focal liver lesion. No intrahepatic biliary duct dilatation. HEPATIC VEINS: Patent with normal waveforms. PORTAL VEINS: Patent with normal waveforms and hepatopetal flow. HEPATIC ARTERIES: Normal upstroke and diastolic flow. INFERIOR VENA CAVA: Patent with normal waveforms. GALLBLADDER: Multiple gallstones and biliary sludge. There is diffuse gallbladder wall thickening. The gallbladder is not distended. There is pericholecystic fluid/ascites. COMMON BILE DUCT: Normal in caliber measuring 0.5 cm in diameter. PANCREAS: Normal. The visualized pancreatic head and body are normal in appearance. The remainder of the pancreas is obscured from visualization by the overlying bowel gas. RIGHT KIDNEY: Normal. No hydronephrosis. No renal calculi or focal parenchymal lesions. The kidney measures 10.5 cm in maximum dimension. SPLEEN: The spleen measures 8.0 cm in maximum dimension. SPLENIC VEIN: Patent with normal waveforms. FREE FLUID: Small volume ascites. US/US duplex arterial venous comp IMPRESSION: 1. Patent portal vein with appropriate direction of flow. 2. Cholelithiasis and biliary sludge with diffuse gallbladder wall thickening. Findings may be due to ascites, however cholecystitis can not be excluded. 3. Small volume ascites.
--- NOTE | ~2023-05-15 | CT_ITS ---
EXAMINATION: CT HEAD WITHOUT CONTRAST CLINICAL INFORMATION: Fall COMPARISON: None TECHNIQUE: Contiguous axial imaging was performed from the skull base to vertex without intravenous administration of contrast. This CT examination was performed using dose optimization techniques as appropriate, variously including the following: *Automated exposure control *Adjustment of mA and/or kV according to patient size (this includes techniques or standardized protocols for targeted exams where dose is matched to indication/reason for exam; i.e. extremities or head) *Use of iterative reconstruction technique DLP: 1148 mGy-cm FINDINGS: There is no evidence of acute intracranial hemorrhage or territorial infarction. Chronic white matter small vessel ischemic changes. Cerebral atrophy with commensurate ventricular changes. No abnormal mass effect or midline shift is seen. Black to white matter differentiation is well preserved. No extra-axial fluid collections are identified. The ventricles are normal in size. There is no abnormal attenuation within the brain parenchyma. The osseous structures and soft tissues are normal. Mucoperiosteal thickening of the bilateral maxillary and left sphenoid sinus. The mastoid air cells and visualized portions of the paranasal sinuses are well aerated. CT/CT cervical spine wo IV con IMPRESSION: 1. No acute intracranial pathology. 2. Chronic white matter small vessel ischemic changes. EXAMINATION: Noncontrast CT scan of the cervical spine. INDICATION: Fall COMPARISON: None. TECHNIQUE: Helical, multidetector axial images were obtained from the occiput to the upper thorax. Coronal and sagittal reformats of the cervical spine were provided for interpretation. DLP: 1148 mGy-cm FINDINGS: No acute fractures or dislocations of the cervical spine are seen. Multilevel degenerative changes. Very slight grade 1 retrolisthesis of C4-C5. Slight straightening of normal cervical curvature. Anatomic alignment and positioning of the vertebral bodies and posterior elements is noted. The atlantoaxial joint and craniovertebral articulations are normal without evidence of subluxation. There is no prevertebral soft tissue swelling. Biapical pleural parenchymal lung scarring. IMPRESSION: 1. No acute visible fracture or dislocation. 2. Multilevel degenerative changes. 3. Very slight grade 1 retrolisthesis of C4-C5. 4. Slight straightening of normal cervical curvature.
--- NOTE | 2023-05-15 06:58 | ECG_ITS ---
Test Reason : falls Blood Pressure : / mmHG Vent. Rate : 118 BPM Atrial Rate : 118 BPM P-R Int : 150 ms QRS Dur : 068 ms QT Int : 350 ms P-R-T Axes : 073 082 -57 degrees QTc Int : 490 ms Artifact in tracing Sinus tachycardia Possible Anterior infarct , age undetermined Abnormal ECG No previous ECGs available Referred By: Keri Cai Electronically Signed By:DAPHNE RASCON
--- NOTE | 2023-05-15 07:09 | ED_ITS ---
HPI - Weakness General Chief complaint: Fall Stated complaint: sepsis? Time Seen by Provider: 05/15/23 06:58 Source: patient Mode of arrival: EMS Limitations: altered mental status and other (poor historian) History of Present Illness HPI Narrative: 52 yo female with PMH of HLD, MS, ETOH abuse and cirrhosis states last drink was one week ago - EMS was called by her boyfriend due to multiple falls today. She cannot give full story. She is yellow but states she didn't know this. BP was in 70s on EMS arrival. No other history provided. Unsure when this started. MD Complaint: generalized weakness, lack of energy and difficulty walking Onset (ago): unknown Duration: progressively worsening Location: generalized Migration: none Severity: severe Relieving factors: none Exacerbating factors: movement and exertion Context: history of similar Associated symptoms: confusion and loss of appetite Related Data Previous Rx's Medication Instructions Recorded amoxicillin 875 mg-potassium 875 mg PO BID #14 tabs 06/30/22 clavulanate 125 mg tablet folic acid 1 mg tablet 1 mg PO DAILY #30 tabs 06/30/22 omeprazole 20 mg capsule,delayed 20 mg PO DAILY #30 caps 06/30/22 release thiamine mononitrate (vit B1) 100 100 mg PO DAILY #30 tabs 06/30/22 mg tablet Allergies Allergy/AdvReac Type Severity Reaction Status Date / Time No Known Allergies Allergy Verified 06/27/22 08:37 Review of Systems 2 Review of Systems: ROS unable to be obtained due to confusion PMFSH Past Medical History Attestation statement: The following information was validated with the patient. Source: old records reviewed Medical History Transaminitis Multiple sclerosis Jaundice Anemia Multiple sclerosis Mass of pancreas Hepatitis Social History Social History Household Members: Significant Other Housing: Apartment Do you presently have visiting nurse or other home services: No Alcohol intake: unknown Comment: patient refusing high fall risks Patient Tobacco Use Status: Never used Tobacco Tobacco use type: Cigarette e-Cigarette/Vaping Use: Never Used Advance Directives: No Advance Directives Information Provided: Yes service: No Current occupational status: disabled Physical Exam 2 Vital Signs: Vital Signs: Last Vital Signs Temp 97.4 F 05/15/23 10:02 Pulse 109 H 05/15/23 10:02 Resp 18 05/15/23 10:02 BP 84/49 L 05/15/23 10:02 Pulse Ox 100 05/15/23 09:05 O2 Del Method Room Air 05/15/23 09:05 BMI result Body Mass Index 16.9 Appearance: Alert. oriented to person and place moderate acute distress. Frail and thin Eyes: Pupils equal, round and reactive to light. scleral icterus ENT: Pharynx dried mucous membranes and dried bright blood on lips Neck: Normal inspection. Neck supple. CVS: Normal heart rate and rhythm. Pulses normal. Respiratory: No respiratory distress. Breath sounds normal. Abdomen: Soft and nontender. no signs of trauma Skin: Skin cool and dry. yellow skin color. Normal skin turgor. Extremities: No lower extremity edema. Neuro: Oriented X 2. No motor deficit. No sensory deficit. Course Course Course Narrative: patient now alert and oriented states she is not sure when but admits to vomiting up coffee ground and maybe some red blood 2 units PRBCS ordered ceftriaxone ordered in case of varices not for infection or severe sepsis Received critical potassium of 2.9 magnesium 1.3 > mag and k+ ordered. Reevaluation(s) Reevaluation #1: RBCs ordered, platelets ordered FFP ordered protonix Olson consulted 950am had to place in femoral line as R EJ 20 gauge used and on prior EJ attempt she had hematoma and still active ooze and I could not acces on the L due to the persistent oozing and hematoma - emergent due to need for meds and emergent transfusion Medications Administered Generic Name Dose Route Start Last Admin Trade Name Freq PRN Reason Stop Dose Admin Potassium Chloride 10 meq in 100 mls @ 100 mls/hr 05/15/23 09:30 05/15/23 10:14 Potassium Chloride/H20 IV 05/15/23 13:29 100 mls/hr Q1H NURIA Administration Discontinued Medications Generic Name Dose Route Start Last Admin Trade Name Freq PRN Reason Stop Dose Admin Magnesium Sulfate 2 gm in 50 mls @ 25 mls/hr 05/15/23 06:58 05/15/23 08:54 Magnesium Sulfate/H2o IV 05/15/23 08:57 25 mls/hr ONCE ONE Administration Thiamine HCl 200 mg/ Sodium 102 mls @ 204 mls/hr 05/15/23 06:58 05/15/23 08:53 Chloride IV 05/15/23 07:27 Infused ONCE ONE Infusion Sodium Chloride 1,000 mls @ 999 mls/hr 05/15/23 07:00 05/15/23 08:53 Ns IV 05/15/23 08:00 Infused .Q1H1M NURIA Infusion Sodium Chloride 1,000 mls @ 999 mls/hr 05/15/23 07:00 05/15/23 08:53 Ns IV 05/15/23 08:00 Infused .Q1H1M NURIA Infusion Albumin Human 100 mls @ 133.333 mls/hr 05/15/23 07:00 05/15/23 08:53 Kedbumin 25 % IV 05/15/23 08:44 133.33 mls/hr Q1H NURIA Administration Sodium Chloride 100 mls @ 100 mls/hr 05/15/23 09:10 05/15/23 10:12 Ns IV 05/15/23 10:09 100 mls/hr ONCE ONE Administration Ceftriaxone Sodium 1 gm/ 50 mls @ 100 mls/hr 05/15/23 09:11 05/15/23 10:13 Sodium Chloride IV 05/15/23 09:40 100 mls/hr ONCE ONE Administration Pantoprazole Sodium 40 mg 05/15/23 06:58 05/15/23 08:04 Pantoprazole Sodium 40 Mg/10 Ml Vial IVPUSH 05/15/23 06:59 40 mg ONCE ONE Administration Medical Decision Making Medical Decision Making [facility] Narrative: 52 yo female with PMH of HLD, MS, ETOH abuse and cirrhosis here with low BP apppears very dry clinically yellow on exam repeat falls and hypotensive no ETOH she reports for 1+ week at this time will need IVF x 2L, albumin possible transfusion, mak labs, ammonia, CT head and cspine for trauma, CXR for rib fractures, magnesium and thiamine. Suspect hypotension due to poor po intake and liver disease and not infection or severe sepsis. Differential Diagnosis Differential Diagnoses: The differential diagnosis associated with the presentation includes liver failure, anemia, dehydration, trauma, lyte abnormality Admission/Observation Consideration of admission/observation: Escalation of care including admission/observation considered plan to admit to ICU given lab derangements and UGIB Consult Healthcare Provider Management of the patient was discussed with: Supervisor Lace Tearing Dr. Olson notified Dr. Maldonado to admit patient Lab Data [facility] Lab Attestation statement: I reviewed the patient's lab results. 05/15/23 08:44 05/15/23 08:44 Labs: Lab Results 05/15/23 05/15/23 05/15/23 Range/Units 08:44 08:55 09:10 WBC 5.8 (4.8-10.8) X10*3/uL RBC 1.93 L D (4.20-5.50) X10*6/uL Hgb 5.8 L* D (12.0-16.0) g/dl Hct 19.3 L* D (37.0-47.0) % MCV 100.0 H (80.0-98.0) fL MCH 30.1 (27.0-33.0) pg MCHC 30.1 L (31.0-35.0) g/dl RDW 21.6 H (11.0-16.0) % Plt Count 71 L D (160-400) X10*3/uL MPV 10.8 (9.4-12.3) fL Immature Gran % (Auto) 2.2 H (0.0-0.4) % Neut % (Auto) 76.5 H (45-73) % Lymph % (Auto) 18.9 L (20-40) % [place] % (Auto) 2.1 (2-11) % Eos % (Auto) 0.0 (0-4) % Baso % (Auto) 0.3 (0-2) % Lymph # (Auto) 1.1 L (1.2-4.9) X10*3/uL [place] # (Auto) 0.1 (0.1-1.2) X10*3/uL Eos # (Auto) 0.0 (0.0-0.4) X10*3/uL Baso # (Auto) 0.0 (0.0-0.2) X10*3/uL Abs Immat Gran (auto) 0.13 H (0.00-0.03) X10*3/uL Absolute Neuts (auto) 4.5 (2.0-8.3) x10*3/uL Absolute Nucleated RBC 0.170 H (0.0-0.012) X10*3/uL Nucleated RBC % (auto) 2.9 H (0.0-0.2) /100WBC Smear Tech's Comments VERIFIED Smear Path Review SEE NOTE PT 25.8 H (11.1-13.3) SEC INR 2.1 H (0.9-1.1) Sodium 139 (135-145) mmol/L Potassium 2.9 L* (3.3-5.1) mmol/L Chloride 93 L (96-108) mmol/L Carbon Dioxide 16 L (22-29) mmol/L Anion Gap 33 H (12-20) BUN 11 (9-16) mg/dL Creatinine 0.91 (0.5-1.4) mg/dL Estim Creat Clear Calc 45.8 Estimated GFR > 60 Random Glucose 51 L* (60-115) mg/dL Lactic Acid 22.0 H* (0.5-2.0) mmol/L Calcium 8.1 L (8.4-10.2) mg/dL Magnesium 1.3 L* (1.6-2.6) mg/dL Total Bilirubin 5.0 H (0.0-1.0) mg/dL Direct Bilirubin 4.0 H (0.0-0.5) mg/dL AST 99 H (5-31) U/L ALT 15 (0-31) U/L Alkaline Phosphatase 260 H (39-117) U/L Ammonia 31 (13-55) umol/L Total Creatine Kinase 118 (26-140) U/L Troponin I High Sens 4.4 (<3.5-17.0) ng/L Total Protein 4.3 L (6.5-8.0) g/dL Albumin 2.2 L (3.5-5.0) g/dL Lipase 10 (8-78) U/L Procalcitonin 1.20 ng/mL Urine Color Dark Yellow Urine Appearance Cloudy Urine pH 5.5 (5.0-9.0) Ur Specific [place] 1.020 (1.005-1.025) Urine Protein 100 (2+) H (Neg-Trace) mg/dL Urine Glucose (UA) Negative (Negative) mg/dL Urine Ketones 15 (Negative) mg/dL Urine Blood Negative (Negative) Urine Nitrite Negative (Negative) Ur Leukocyte Esterase Trace H (Negative) Urine RBC 0-2 (0-2) /HPF Urine WBC 6-10 H (0-5) /HPF Ur Squamous Epith Cells 11-20 (0-2) /HPF Urine Bacteria Trace (None Seen) Hyaline Casts 11-20 (0-2) /LPF Urine Opiates Screen Not Detected (Not Detect) Urine Fentanyl Screen Not Detected (Not Detect) Ur Barbiturates Screen Not Detected (Not Detect) Ur Phencyclidine Scrn Not Detected (Not Detect) Ur Amphetamines Screen Not Detected (Not Detect) U Benzodiazepines Scrn Not Detected (Not Detect) Urine Cocaine Screen Not Detected (Not Detect) U Marijuana (THC) Screen Not Detected (Not Detect) Ethyl Alcohol < 10 mg/dL Hepatitis A IgM Ab Nonreactive (Nonreactive) Hep Bs Antigen Negative (Negative) Hep Bs Antibody NONREACTIVE (Nonreactive) Hep B Core Total Ab Nonreactive (Nonreactive) Hepatitis C Ab (EIA) Nonreactive (Nonreactive) Influenza Type A (PCR) NEGATIVE (Negative) Influenza Type B (PCR) NEGATIVE (Negative) RSV RNA Qual (PCR) NEGATIVE (Negative) SARS-CoV-2 RNA (RT-PCR) NEGATIVE (Negative) Blood Type O Negative Antibody Screen NEGATIVE Crossmatch See Detail Independent Interpretation I performed an independent interpretation of an: EKG, Plain X-Ray (no pneumonia) and CT Scan Interpretation: Rate: 118 Rhythm: sinus tachycardia Graham: normal Normal P waves. Normal KEHINDE. Normal QRS complex. ST T wave : no HUANG, nonspecific ST T wave changes inf leads qTC: 490 prior studies: no sig ischemia The study has been interpreted contemporaneously by me. . Radiology Impression Discussion of test interpretation with radiology: I have reviewed the radiologist's reading. Independent Historian Clinical information obtained from an independent historian. History obtained from or confirmed by: EMS External Record Review External record reviewed: Inpatient record Procedures Central Line Placement Right Femoral: Time Out Performed: Yes Patient Placed on Monitor/Pulse Ox: Yes Prep: mask, gown and gloves Central Line Prep: Chlorhexidine scrub and sterile drapes applied Local Anesthetic: lidocaine 1% Amount of anesthesia used (mL): 3 Central Line Lumen Inserted: triple Post Procedure: sutured in place, good blood return, all ports aspirated, flushed, capped and sterile dressing applied Post Procedure X-Ray: other (US confirmed) Patient Tolerated Procedure: well and no complications Complications: none Additional Comments: had to use femoral line as R EJ had emergent 20 gauge peripheral and attempts at L EJ for emergent placement caused hematoma and persistent oozing due to her coagulopathy so I could not use the L IJ as a site EJ/Peripheral Line Neck R: Time Out Performed: Yes Skin Cleansed in Sterile Fashion: Yes Size (gauge): 20 IV Secured and Dressing Applied: Yes Patient Tolerated Procedure: other (tried to place initially in L neck hematoma developed and then attempted x 1 R neck no issue with 20 gauge access emergent for BP in 70s) Critical Care Time Critical Care Time Critical Care Time: Yes Total Critical Care Time: 75 Attestation: review of records, consult, repeat bedside assessments, IVF x 2L, albumin, PRBCs, BP management, admission, consult I attest to this time spent taking care of the patient Discharge Plan Discharge Clinical Impression: Acute hypokalemia, Hypomagnesemia, Acute upper GI bleed, Acute blood loss anemia, Acidosis, lactic Alcoholic cirrhosis Qualifiers: Ascites presence: without ascites Qualified Code(s): K70.30 - Alcoholic cirrhosis of liver without ascites Patient Disposition: Admitted As Inpatient
[2023-05-15] MEDS: 0.9 % Sodium Chloride 1,000 ML 999 ML IV ×2 (07:24→07:45)
--- NOTE | 2023-05-15 07:47 | PC.NURSE ---
upon arrival patient found to be hypotensive. multiple attempts at IV and lab drawns, able to get 22IV in right hand, fluids infusing. provider able to get access 20IV - second liter of fluids infusing. continues to be difficult lab draw
[2023-05-15] MEDS: Thiamine HCL 200 MG in 0.9 % Sodium Chloride 100 ML 204 MG IV (08:04)
[2023-05-15] MEDS: Pantoprazole Sodium 40 MG/10 ML VIAL IVPUSH (08:04)
[2023-05-15] MEDS: Albumin Human 25 % 100 ML 133.33 ML IV ×2 (08:05→08:53)
--- NOTE | 2023-05-15 08:19 | PC.NURSE ---
medicated per the MAR, ekg obtained.
--- NOTE | 2023-05-15 08:45 | PC.NURSE ---
both liters of fluids infused, albumin and magnesium infusing at this time. labs obtained and sent. patient hypotensive
[2023-05-15] MEDS: Magnesium Sulfate/H2O 2 GM/50 ML PIGGYBACK IV (08:54)
[2023-05-15 09:04] LABS: INTERNATIONAL NORM RATIO 2.1 (0.9-1.1); Prothrombin Time 25.8 SEC (11.1-13.3)
[2023-05-15 09:06] LABS: Basophils Percent Auto 0.3 % (0-2); Imm Gran Abs Auto 0.13 X10*3/uL (0.00-0.03); Imm Gran Pct Auto 2.2 % (0.0-0.4); Lymphocytes Absolute Auto 1.1 X10*3/uL (1.2-4.9); Lymphocytes Percent Auto 18.9 % (20-40); MANUAL DIFF FLAG SCAN; Mean Corpuscular HGB Conc 30.1 g/dl (31.0-35.0); Mean Corpuscular Hemoglobin 30.1 pg (27.0-33.0); Mean Platelet Volume 10.8 fL (9.4-12.3); Monocytes Absolute Auto 0.1 X10*3/uL (0.1-1.2); Monocytes Percent Auto 2.1 % (2-11); Neutrophils Absolute Auto 4.5 x10*3/uL (2.0-8.3); Neutrophils Percent Auto 76.5 % (45-73); Red Blood Count 1.93 X10*6/uL (4.20-5.50); Red Cell Distribution Width 21.6 % (11.0-16.0); SCAN SMEAR FLAG 1
[2023-05-15 09:09] LABS: Hemoglobin 5.8 g/dl (12.0-16.0)
[2023-05-15 09:10] LABS: NRBC Pct Auto 2.9 /100WBC (0.0-0.2); Platelet Count 71 X10*3/uL (160-400); White Blood Count 5.8 X10*3/uL (4.8-10.8)
[2023-05-15 09:11] LABS: Ammonia 31 umol/L (13-55)
[2023-05-15 09:12] LABS: Ethanol < 10 mg/dL
[2023-05-15 09:19] LABS: Troponin-I High Sensitivity 4.4 ng/L (<3.5-17.0)
[2023-05-15 09:22] LABS: Alanine Aminotransferase 15 U/L (0-31); Albumin Level 2.2 g/dL (3.5-5.0); Alkaline Phosphatase 260 U/L (39-117); Anion Gap 33 (12-20); Aspartate Amino Transferase 99 U/L (5-31); Blood Urea Nitrogen 11 mg/dL (9-16); Calcium 8.1 mg/dL (8.4-10.2); Carbon Dioxide 16 mmol/L (22-29); Chloride 93 mmol/L (96-108); Creatinine Clr Calc Pharmacy 45.8; Estimated Glomerular Filt Rate > 60; Lipase 10 U/L (8-78); Sodium 139 mmol/L (135-145); Total Protein 4.3 g/dL (6.5-8.0)
[2023-05-15 09:24] LABS: Glucose Random 51 mg/dL (60-115); Magnesium 1.3 mg/dL (1.6-2.6); Potassium 2.9 mmol/L (3.3-5.1)
[2023-05-15 09:27] LABS: Appearance Urine Cloudy; Color Urine Dark Yellow; Glucose Urine UA Negative (Negative); Leukocyte Esterase Urine Trace (Negative); Nitrite Urine Negative (Negative); PH 5.5 (5.0-9.0); UMIC TRIGGER UACC YES; Urine Blood Negative (Negative); Urine Ketones 15 mg/dL (Negative); Urine Protein 100 (2+) mg/dL (Neg-Trace)
[2023-05-15] MEDS: Dextrose 50 % 25 GM/50 ML SYRINGE IVPUSH (09:30)
--- NOTE | 2023-05-15 09:30 | PC.NURSE ---
provider at bedside for central line placement. hypoglycemic - d50 given verbal order
[2023-05-15 09:33] LABS: SLIDE REVIEW VERIFIED
[2023-05-15 09:34] LABS: HBc Num1 0.15 S/CO (0.00-0.79); HBsAGNum1 0.26 S/CO (0.00-0.99); Hepatitis B Core Antibody Nonreactive (Nonreactive); Hepatitis B Surface Antigen Negative (Negative); ~HepC Num1 0.14 S/CO (0.00-0.79); ~Hepatitis A Antibody IgM Nonreactive (Nonreactive); ~Hepatitis B Surface Antibody NONREACTIVE (Nonreactive); ~Hepatitis C Antibody Nonreactive (Nonreactive)
--- NOTE | 2023-05-15 09:34 | PC.NURSE ---
straight cath obtained - approx 100mL output, urines sent
[2023-05-15 09:36] LABS: Bacteria Urine Trace (None Seen); RBC Urine 0-2 /HPF (0-2); UACC Culture Trigger YES
[2023-05-15 09:46] LABS: Amphetamine Screen Urine Not Detected (Not Detect); Barbiturates, Urine Not Detected (Not Detect); Benzodiazepines Screen Urine Not Detected (Not Detect); Cannabinoid Screen Urine Not Detected (Not Detect); Cocaine Screen Urine Not Detected (Not Detect); Fentanyl, urine Not Detected (Not Detect); Opiate Screen Urine Not Detected (Not Detect); Phencyclidine Screen Urine Not Detected (Not Detect)
[2023-05-15 09:49] LABS: Influenza A PCR NEGATIVE (Negative); Influenza B PCR NEGATIVE (Negative); Resp Syncy Virus RNA Qual PCR NEGATIVE (Negative); SARS COV2 PCR INHOUSE NEGATIVE (Negative)
--- NOTE | 2023-05-15 10:10 | PC.NURSE ---
intensivest requesting blood to be infused over 20 mins
--- NOTE | 2023-05-15 10:11 | PC.NURSE ---
provider placed femoral central line, first unit of blood infusing at this time
[2023-05-15] MEDS: cefTRIAXone sodium 1 GM in 0.9 % Sodium Chloride 50 ML IV (10:13)
[2023-05-15] MEDS: Potassium Chloride/H20 10 MEQ/100 ML PIGGYBACK 100 MEQ IV ×4 (10:14→13:47)
[2023-05-15 10:54] LABS: Reflex Lactate? Lactic Acid Added
--- NOTE | 2023-05-15 10:56 | PC.NURSE ---
ct scan completed. patient being transported at this time to ICU. first unit blood completed prior to transport
[2023-05-15] MEDS: iohexoL 350 MG/ML 100 ML INFUS..BTL IV (11:24)
[2023-05-15 11:37] LABS: Glucose, Whole Blood 173 mg/dL (60-115)
--- NOTE | 2023-05-15 11:37 | PHA.MEDREC ---
Pharmacy Consult ? Medication Reconciliation Pharmacy has completed the medication reconciliation. Spoke with patient, she confirmed she is not on any medications.
[2023-05-15] MEDS: ondansetron HCL 4 MG/2 ML VIAL IVPUSH (11:56)
[2023-05-15] MEDS: Octreotide Acetate 500 MCG in 0.9 % Sodium Chloride 500 ML 50.1 MCG IVCONT (11:56)
[2023-05-15] MEDS: Octreotide Acetate 100 MCG/ML AMPUL 50 MCG IVPUSH (12:01)
[2023-05-15] MEDS: Phytonadione (Vit K1) 10 MG in 0.9 % Sodium Chloride 50 ML 51 MG IV (12:09)
--- NOTE | 2023-05-15 12:48 | MHC.SHP ---
Pre-Procedural Eval Section A - 24 Hr Update-Section A only Date of Service: 05/15/23 The patient is an INPATIENT: Yes The patient has been examined within 24 hours of the surgical procedure. The History & Physical has been completed within 30 days and I have reviewed it.: Yes Section B - Complete if H&P > 30 days Chief Complaint: Hemorrhagic shock Allergies: Allergies Allergy/AdvReac Type Severity Reaction Status Date / Time No Known Allergies Allergy Verified 06/27/22 08:37 Plan I have reviewed the history and physical and performed a pertinent physical examination on my patient. No changes have occurred unless specified. Time Spent With Patient Time: Total time managing care of this patient today ____ minutes.
--- NOTE | 2023-05-15 12:49 | PM.EVENT ---
Event Note Date of Service: 05/15/23 Event Note: GI Consult-Full note dictated Imp: 52 yo female with longstanding EtOH abuse presenting with reported UGI bleeding, anemia, jaundice, probable ascites, thrombocytopenia, and coagulopathy. Presently in ICU without further signs of bleeding. She is alert and oriented x 3. Abdominal exam is c/w ascites, but is soft and NT. Diff dx: Variceal bleeding, Portal gastropathy, PUD, Karly-Olson tear Rec: Continue resuscitation with FFP, PRBC's, and Platelets. Continue IV Sandostatin and PPI. IV Vit K as needed. EGD with me or Dr. Kelly. Full consent obtained from her for this, including risks of bleeding and perforation. D/W patient in detail and she seems comfortable with this plan. Thanks Time Spent With Patient Time: Total time managing care of this patient today ____ minutes.
[2023-05-15] MEDS: Pantoprazole Sodium 80 MG in 0.9 % Sodium Chloride 80 ML 10 MG IV ×2 (12:50→21:54)
[2023-05-15 13:08] LABS: Reflex Lactate? 2 Y
--- NOTE | 2023-05-15 13:29 | P.HPCC_ITS ---
History of Present Illness Date of Service: 05/15/23 Chief Complaint: Multiple falls, hypotension 52-year-old lady with underlying alcoholic cirrhosis presented complaining of multiple falls and recent multiple episodes of hematemesis. On ER evaluation patient hypotensive, with multiple electrolyte abnormalities, coagulopathy, lactic acidosis, and with acute blood loss anemia started on blood product and IV fluid support. Gastroenterology was consulted for upper endoscopy. Patient admitted to intensive care unit. She was started on octreotide drip and PPI. Her CT abdomen/pelvis demonstrated resolution of previously was living on peripancreatic fluid collection. Review of Systems 2 Constitutional: Constitutional: Denies daytime sleepiness, Denies excessive sweating, Reports fatigue, Denies fever(s), Denies lethargy, Denies malaise, Denies night sweats, Denies snoring and Denies weight loss Eyes: Eyes: Denies blurry vision and Denies itchy eyes ENT: Denies nasal congestion, Denies post nasal drip, Denies sinus pain, Denies sinus pressure and Denies other ( Thrush) Cardiovascular: Cardiovascular: Denies chest pain, Denies pedal edema, Denies dyspnea, Denies orthopnea and Denies paroxysmal nocturnal dyspnea Respiratory: Respiratory: Denies cough, Denies hemoptysis, Denies excessive phlegm production, Denies dyspnea, Denies snoring and Denies wheezing Gastrointestinal: Gastrointestinal: Denies abdominal pain, Reports coffee ground emesis and Denies heartburn Musculoskeletal: Musculoskeletal: Denies myalgias, Denies arthralgias and Denies joint swelling Integumentary/Breasts: Skin/Breast: Denies rash Neurologic: Denies memory loss and Denies seizure-like activity Psychiatric: Psychiatric: Denies abnormal sleep pattern, Denies anxiety and Denies memory loss Endocrine: Endocrine: Denies excessive sweating, Reports fatigue and Denies heat intolerance Hematologic/Lymphatic: Hematologic/Lymphatic: Denies easy bruising Allergic/Immunologic: Allergic/Immunologic: Denies itchy eyes, Denies seasonal rhinorrhea and Denies wheezing PMFSH Past Medical History Medical History Transaminitis Multiple sclerosis Jaundice Anemia Multiple sclerosis Mass of pancreas Hepatitis Social History Social History Household Members: Significant Other Household Members Other:: Boyfriend Housing: Apartment Do you presently have visiting nurse or other home services: No Alcohol intake: unknown Comment: patient refusing high fall risks Patient Tobacco Use Status: Current everyday Tobacco user Tobacco use type: Cigarette Cigarette Packs Per Day: 1 Cigarettes Per Day: 20.0 Years Smoked: 38 Smoked in Last 30 Days: Yes e-Cigarette/Vaping Use: Never Used Patient Interested in Nicotine Replacement: Yes Patient Given Instructions on How to Stop Smoking: No Second Hand Smoke Exposure: Yes Use of substances other than those prescribed or required for medical reasons: Yes Substance Use Type: Marijuana Substance Use Frequency: Occasionally Last Used Substance: Weeks (ago) Currently Displaying Signs/Symptoms of Drug Intoxication Withdrawal: No Any prior treatment program specific to substance use: No Have you been hit, kicked, punched, or otherwise hurt by someone within the past year? If so, by whom?: No Do you feel safe in your current relationship?: Yes Is there a partner from a previous relationship who is making you feel unsafe now?: No Are you made to feel afraid or neglected: No Advance Directives: No Advance Directives Information Provided: Yes Do you have thoughts of harming others: None Do you have a plan to hurt others: No Plan Recently lost weight without trying: No How much weight loss: Unsure Eating poorly because of decreased appetite: Yes Nutrition screen score: 3 Patient : No : No Poor oral hygiene: No service: No Current occupational status: disabled Meds Allergies Allergy/AdvReac Type Severity Reaction Status Date / Time No Known Allergies Allergy Verified 06/27/22 08:37 Active Medications: Current Medications Octreotide Acetate 500 mcg/ (Sodium Chloride) 501 mls @ 50.1 mls/hr IVCONT .Q10H NURIA Last Admin: 05/15/23 11:56 Dose: 50 mcg/hr, 50.1 mls/hr Pantoprazole Sodium 80 mg/ (Sodium Chloride) 100 mls @ 10 mls/hr IV .Q10H NURIA Last Admin: 05/15/23 12:50 Dose: 8 mg/hr, 10 mls/hr Sodium Chloride (Ns) 100 mls @ 100 mls/hr IV ONCE ONE Stop: 05/15/23 13:33 Sodium Chloride (Ns) 100 mls @ 100 mls/hr IV ONCE ONE Stop: 05/15/23 13:33 Potassium Chloride (Potassium Chloride/H20) 40 meq in 100 mls @ 100 mls/hr IV ONCE ONE Stop: 05/15/23 13:34 Ondansetron HCl (Ondansetron Hcl 4 Mg/2 Ml Vial) 4 mg IVPUSH Q4H PRN PRN Reason: Nausea Last Admin: 05/15/23 11:56 Dose: 4 mg Physical Exam 2 Vital Signs: Vital Signs: Last Vital Signs Temp 97.9 F 05/15/23 13:29 Pulse 107 H 05/15/23 13:29 Resp 17 05/15/23 13:29 BP 94/68 05/15/23 13:29 Pulse Ox 99 05/15/23 13:00 O2 Del Method Nasal Cannula 05/15/23 13:00 O2 Flow Rate 2 05/15/23 13:00 BMI result Body Mass Index 16.9 Const: General: no acute distress, alert, awake and other (Jaundiced) Eyes: Sclerae: sclerae normal EOM: EOMs intact bilaterally Neck: Neck: Yes no lymphadenopathy, Yes trachea midline and Yes supple Resp: Effort & Inspection: normal respiratory effort and no respiratory distress Auscultation: clear to auscultation bilaterally Cardio: Rate: tachycardic Rhythm: regular rhythm Heart sounds: no gallops, no murmurs and no rubs GI: Palpation (GI): Soft to palpation and Other GI palpation findings present ( Nontender) Auscultation: normal bowel sounds Extrem: General: Yes no pedal edema, No clubbing and No cyanosis Results Labs 05/15/23 08:44 05/15/23 08:44 Labs: Laboratory Results - last 24 hr 05/15/23 05/15/23 05/15/23 08:44 08:55 09:10 MCV 100.0 H MCH 30.1 MCHC 30.1 L RDW 21.6 H Plt Count 71 L D MPV 10.8 Immature Gran % (Auto) 2.2 H Neut % (Auto) 76.5 H Lymph % (Auto) 18.9 L [place] % (Auto) 2.1 Eos % (Auto) 0.0 Baso % (Auto) 0.3 Lymph # (Auto) 1.1 L [place] # (Auto) 0.1 Eos # (Auto) 0.0 Baso # (Auto) 0.0 Abs Immat Gran (auto) 0.13 H Absolute Neuts (auto) 4.5 Absolute Nucleated RBC 0.170 H Nucleated RBC % (auto) 2.9 H Smear Tech's Comments VERIFIED Smear Path Review SEE NOTE PT 25.8 H INR 2.1 H Anion Gap 33 H Estim Creat Clear Calc 45.8 Estimated GFR > 60 POC Glucose Random Glucose 51 L* Lactic Acid 22.0 H* Lactic Acid F/U @ 2Hr Calcium 8.1 L Magnesium 1.3 L* Total Bilirubin 5.0 H Direct Bilirubin 4.0 H AST 99 H ALT 15 Alkaline Phosphatase 260 H Ammonia 31 Total Creatine Kinase 118 Troponin I High Sens 4.4 Total Protein 4.3 L Albumin 2.2 L Lipase 10 Procalcitonin 1.20 Urine Color Dark Yellow Urine Appearance Cloudy Urine pH 5.5 Ur Specific [place] 1.020 Urine Protein 100 (2+) H Urine Glucose (UA) Negative Urine Ketones 15 Urine Blood Negative Urine Nitrite Negative Ur Leukocyte Esterase Trace H Urine RBC 0-2 Urine WBC 6-10 H Ur Squamous Epith Cells 11-20 Urine Bacteria Trace Hyaline Casts 11-20 Urine Opiates Screen Not Detected Urine Fentanyl Screen Not Detected Ur Barbiturates Screen Not Detected Ur Phencyclidine Scrn Not Detected Ur Amphetamines Screen Not Detected U Benzodiazepines Scrn Not Detected Urine Cocaine Screen Not Detected U Marijuana (THC) Screen Not Detected Ethyl Alcohol < 10 Hepatitis A IgM Ab Nonreactive Hep Bs Antigen Negative Hep Bs Antibody NONREACTIVE Hep B Core Total Ab Nonreactive Hepatitis C Ab (EIA) Nonreactive Influenza Type A (PCR) NEGATIVE Influenza Type B (PCR) NEGATIVE RSV RNA Qual (PCR) NEGATIVE SARS-CoV-2 RNA (RT-PCR) NEGATIVE Blood Type O Negative Antibody Screen NEGATIVE Crossmatch See Detail 05/15/23 05/15/23 11:04 11:32 MCV MCH MCHC RDW Plt Count MPV Immature Gran % (Auto) Neut % (Auto) Lymph % (Auto) [place] % (Auto) Eos % (Auto) Baso % (Auto) Lymph # (Auto) [place] # (Auto) Eos # (Auto) Baso # (Auto) Abs Immat Gran (auto) Absolute Neuts (auto) Absolute Nucleated RBC Nucleated RBC % (auto) Smear Tech's Comments Smear Path Review PT INR Anion Gap Estim Creat Clear Calc Estimated GFR POC Glucose 173 H Random Glucose Lactic Acid Lactic Acid F/U @ 2Hr 15.0 H* Calcium Magnesium Total Bilirubin Direct Bilirubin AST ALT Alkaline Phosphatase Ammonia Total Creatine Kinase Troponin I High Sens Total Protein Albumin Lipase Procalcitonin Urine Color Urine Appearance Urine pH Ur Specific [place] Urine Protein Urine Glucose (UA) Urine Ketones Urine Blood Urine Nitrite Ur Leukocyte Esterase Urine RBC Urine WBC Ur Squamous Epith Cells Urine Bacteria Hyaline Casts Urine Opiates Screen Urine Fentanyl Screen Ur Barbiturates Screen Ur Phencyclidine Scrn Ur Amphetamines Screen U Benzodiazepines Scrn Urine Cocaine Screen U Marijuana (THC) Screen Ethyl Alcohol Hepatitis A IgM Ab Hep Bs Antigen Hep Bs Antibody Hep B Core Total Ab Hepatitis C Ab (EIA) Influenza Type A (PCR) Influenza Type B (PCR) RSV RNA Qual (PCR) SARS-CoV-2 RNA (RT-PCR) Blood Type Antibody Screen Crossmatch Imaging Radiologist's Impressions: Impressions Chest X-Ray 05/15/23 09:54 IMPRESSION: Mild interstitial prominence. Abdomen/Pelvis CT 05/15/23 11:22 IMPRESSION: No hematoma to explain anemia. No visible fracture. Enlarged and markedly hypoattenuating liver consistent with steatosis. Query alcohol abuse. Resolution of previously seen peripancreatic fluid collection. Diffuse small bowel edema which is more prominent in the jejunum than the rest of the small bowel and may relate to an enteritis or be related to hypoproteinemia. There is generalized decreased muscle mass which could relate to malnutrition. Osteopenia. Small gallstones without evidence of acute cholecystitis. Fleischner guidelines were followed. Cervical Spine CT 05/15/23 11:22 IMPRESSION: 1. No acute intracranial pathology. 2. Chronic white matter small vessel ischemic changes. EXAMINATION: Noncontrast CT scan of the cervical spine. INDICATION: Fall COMPARISON: None. TECHNIQUE: Helical, multidetector axial images were obtained from the occiput to the upper thorax. Coronal and sagittal reformats of the cervical spine were provided for interpretation. DLP: 1148 mGy-cm FINDINGS: No acute fractures or dislocations of the cervical spine are seen. Multilevel degenerative changes. Very slight grade 1 retrolisthesis of C4-C5. Slight straightening of normal cervical curvature. Anatomic alignment and positioning of the vertebral bodies and posterior elements is noted. The atlantoaxial joint and craniovertebral articulations are normal without evidence of subluxation. There is no prevertebral soft tissue swelling. Biapical pleural parenchymal lung scarring. IMPRESSION: 1. No acute visible fracture or dislocation. 2. Multilevel degenerative changes. 3. Very slight grade 1 retrolisthesis of C4-C5. 4. Slight straightening of normal cervical curvature. Head CT 05/15/23 11:22 IMPRESSION: 1. No acute intracranial pathology. 2. Chronic white matter small vessel ischemic changes. EXAMINATION: Noncontrast CT scan of the cervical spine. INDICATION: Fall COMPARISON: None. TECHNIQUE: Helical, multidetector axial images were obtained from the occiput to the upper thorax. Coronal and sagittal reformats of the cervical spine were provided for interpretation. DLP: 1148 mGy-cm FINDINGS: No acute fractures or dislocations of the cervical spine are seen. Multilevel degenerative changes. Very slight grade 1 retrolisthesis of C4-C5. Slight straightening of normal cervical curvature. Anatomic alignment and positioning of the vertebral bodies and posterior elements is noted. The atlantoaxial joint and craniovertebral articulations are normal without evidence of subluxation. There is no prevertebral soft tissue swelling. Biapical pleural parenchymal lung scarring. IMPRESSION: 1. No acute visible fracture or dislocation. 2. Multilevel degenerative changes. 3. Very slight grade 1 retrolisthesis of C4-C5. 4. Slight straightening of normal cervical curvature. Assessment and Plan (1) Acute blood loss anemia: Status: Acute (2) Acute upper GI bleed: Status: Acute (3) Alcoholic cirrhosis: Qualifiers: Ascites presence: without ascites Qualified Code(s): K70.30 - Alcoholic cirrhosis of liver without ascites Status: Acute (4) Hypomagnesemia: Status: Acute (5) Acute hypokalemia: Status: Acute (6) Acidosis, lactic: Status: Acute (7) Coagulopathy: Status: Acute Plan Assessment: 52-year-old lady with underlying alcoholic cirrhosis admitted with upper GI bleed and multiple electrolyte abnormalities. Plan: Neuro: No acute issues. Cardiac: Hemorrhagic shock improving with blood product support. Pulmonary: No acute issues. Renal: Acute kidney injury likely secondary to hemorrhagic shock. Non oliguric. Continue to monitor renal indices and urine output. Expect to improve with volume/blood product resuscitation. Endo: No acute issues. GI: Upper GI bleed on the background of alcoholic cirrhosis. Gastroenterology service consulted. Planned for EGD. Continue PPI/octreotide drip. ID: No acute issues Heme/Onc: Acute blood loss anemia requiring blood product support. Transfusion threshold of 7. FFP/vitamin K for coagulopathy. Psych: No acute issues. Miscellaneous: No acute issues. Prophylaxis: Pneumatic compression Diet: NPO Critical care time spent: 60 minutes
[2023-05-15 13:37] LABS: Hematocrit 19.3 % (37.0-47.0)
[2023-05-15 14:11] LABS: ~Lactic Acid-LAB USE ONLY 10.5 mmol/L (0.5-2.0)
--- NOTE | 2023-05-15 14:25 | HO.ANESPROP2 ---
[facility] Active Problems Active Problems: All Active Problems (Updated 05/15/23 @ 13:36 by Norman Maldonado MD) Coagulopathy (Acute) Acidosis, lactic (Acute) Acute blood loss anemia (Acute) Acute upper GI bleed (Acute) Alcoholic cirrhosis (Acute) Hypomagnesemia (Acute) Acute hypokalemia (Acute) Dental abscess (Acute) Past Medical History Medical History Transaminitis Multiple sclerosis Jaundice Anemia Multiple sclerosis Mass of pancreas Hepatitis Family History Family history of problems with anesthesia: No Surgical History History of Problems with Anesthesia: No Social History Social History Household Members: Significant Other Household Members Other:: Boyfriend Housing: Apartment Do you presently have visiting nurse or other home services: No Alcohol intake: unknown Comment: patient refusing high fall risks Patient Tobacco Use Status: Current everyday Tobacco user Tobacco use type: Cigarette Cigarette Packs Per Day: 1 Cigarettes Per Day: 20.0 Years Smoked: 38 Smoked in Last 30 Days: Yes e-Cigarette/Vaping Use: Never Used Patient Interested in Nicotine Replacement: Yes Patient Given Instructions on How to Stop Smoking: No Second Hand Smoke Exposure: Yes Use of substances other than those prescribed or required for medical reasons: Yes Substance Use Type: Marijuana Substance Use Frequency: Occasionally Last Used Substance: Weeks (ago) Currently Displaying Signs/Symptoms of Drug Intoxication Withdrawal: No Any prior treatment program specific to substance use: No Have you been hit, kicked, punched, or otherwise hurt by someone within the past year? If so, by whom?: No Do you feel safe in your current relationship?: Yes Is there a partner from a previous relationship who is making you feel unsafe now?: No Are you made to feel afraid or neglected: No Advance Directives: No Advance Directives Information Provided: Yes Do you have thoughts of harming others: None Do you have a plan to hurt others: No Plan Recently lost weight without trying: No How much weight loss: Unsure Eating poorly because of decreased appetite: Yes Nutrition screen score: 3 Patient : No : No Poor oral hygiene: No service: No Current occupational status: disabled Meds Allergies Allergy/AdvReac Type Severity Reaction Status Date / Time No Known Allergies Allergy Verified 06/27/22 08:37 Active Medications: Current Medications Octreotide Acetate 500 mcg/ (Sodium Chloride) 501 mls @ 50.1 mls/hr IVCONT .Q10H NURIA Last Admin: 05/15/23 11:56 Dose: 50 mcg/hr, 50.1 mls/hr Pantoprazole Sodium 80 mg/ (Sodium Chloride) 100 mls @ 10 mls/hr IV .Q10H NURIA Last Admin: 05/15/23 12:50 Dose: 8 mg/hr, 10 mls/hr Ondansetron HCl (Ondansetron Hcl 4 Mg/2 Ml Vial) 4 mg IVPUSH Q4H PRN PRN Reason: Nausea Last Admin: 05/15/23 11:56 Dose: 4 mg Exam Height,Weight and Vital Signs: Height 5 ft Weight 39.3 kg Last Vital Signs Temp 97.9 F 05/15/23 13:50 Pulse 113 H 05/15/23 13:50 Resp 14 05/15/23 13:50 BP 91/67 05/15/23 13:50 Pulse Ox 99 05/15/23 13:00 O2 Del Method Nasal Cannula 05/15/23 13:00 O2 Flow Rate 2 05/15/23 13:00 Pertinent Lab Results Pertinent Lab Results: Laboratory Tests 05/15/23 05/15/23 05/15/23 08:44 08:55 09:10 WBC 5.8 RBC 1.93 L D Hgb 5.8 L* D Hct 19.3 L* D MCV 100.0 H MCH 30.1 MCHC 30.1 L RDW 21.6 H Plt Count 71 L D MPV 10.8 Immature Gran % (Auto) 2.2 H Neut % (Auto) 76.5 H Lymph % (Auto) 18.9 L [place] % (Auto) 2.1 Eos % (Auto) 0.0 Baso % (Auto) 0.3 Lymph # (Auto) 1.1 L [place] # (Auto) 0.1 Eos # (Auto) 0.0 Baso # (Auto) 0.0 Abs Immat Gran (auto) 0.13 H Absolute Neuts (auto) 4.5 Absolute Nucleated RBC 0.170 H Nucleated RBC % (auto) 2.9 H Smear Tech's Comments VERIFIED Smear Path Review SEE NOTE PT 25.8 H INR 2.1 H Sodium 139 Potassium 2.9 L* Chloride 93 L Carbon Dioxide 16 L Anion Gap 33 H BUN 11 Creatinine 0.91 Estim Creat Clear Calc 45.8 Estimated GFR > 60 POC Glucose Random Glucose 51 L* Lactic Acid 22.0 H* Lactic Acid F/U @ 2Hr Lactic Acid F/U @ 4Hr Calcium 8.1 L Magnesium 1.3 L* Total Bilirubin 5.0 H Direct Bilirubin 4.0 H AST 99 H ALT 15 Alkaline Phosphatase 260 H Ammonia 31 Total Creatine Kinase 118 Troponin I High Sens 4.4 Total Protein 4.3 L Albumin 2.2 L Lipase 10 Procalcitonin 1.20 Urine Color Dark Yellow Urine Appearance Cloudy Urine pH 5.5 Ur Specific [place] 1.020 Urine Protein 100 (2+) H Urine Glucose (UA) Negative Urine Ketones 15 Urine Blood Negative Urine Nitrite Negative Ur Leukocyte Esterase Trace H Urine RBC 0-2 Urine WBC 6-10 H Ur Squamous Epith Cells 11-20 Urine Bacteria Trace Hyaline Casts 11-20 Urine Opiates Screen Not Detected Urine Fentanyl Screen Not Detected Ur Barbiturates Screen Not Detected Ur Phencyclidine Scrn Not Detected Ur Amphetamines Screen Not Detected U Benzodiazepines Scrn Not Detected Urine Cocaine Screen Not Detected U Marijuana (THC) Screen Not Detected Ethyl Alcohol < 10 Hepatitis A IgM Ab Nonreactive Hep Bs Antigen Negative Hep Bs Antibody NONREACTIVE Hep B Core Total Ab Nonreactive Hepatitis C Ab (EIA) Nonreactive Influenza Type A (PCR) NEGATIVE Influenza Type B (PCR) NEGATIVE RSV RNA Qual (PCR) NEGATIVE SARS-CoV-2 RNA (RT-PCR) NEGATIVE Blood Type O Negative Antibody Screen NEGATIVE Crossmatch See Detail 05/15/23 05/15/23 05/15/23 11:04 11:32 13:43 WBC RBC Hgb Hct MCV MCH MCHC RDW Plt Count MPV Immature Gran % (Auto) Neut % (Auto) Lymph % (Auto) [place] % (Auto) Eos % (Auto) Baso % (Auto) Lymph # (Auto) [place] # (Auto) Eos # (Auto) Baso # (Auto) Abs Immat Gran (auto) Absolute Neuts (auto) Absolute Nucleated RBC Nucleated RBC % (auto) Smear Tech's Comments Smear Path Review PT INR Sodium Potassium Chloride Carbon Dioxide Anion Gap BUN Creatinine Estim Creat Clear Calc Estimated GFR POC Glucose 173 H Random Glucose Lactic Acid Lactic Acid F/U @ 2Hr 15.0 H* Lactic Acid F/U @ 4Hr 10.5 H* Calcium Magnesium Total Bilirubin Direct Bilirubin AST ALT Alkaline Phosphatase Ammonia Total Creatine Kinase Troponin I High Sens Total Protein Albumin Lipase Procalcitonin Urine Color Urine Appearance Urine pH Ur Specific [place] Urine Protein Urine Glucose (UA) Urine Ketones Urine Blood Urine Nitrite Ur Leukocyte Esterase Urine RBC Urine WBC Ur Squamous Epith Cells Urine Bacteria Hyaline Casts Urine Opiates Screen Urine Fentanyl Screen Ur Barbiturates Screen Ur Phencyclidine Scrn Ur Amphetamines Screen U Benzodiazepines Scrn Urine Cocaine Screen U Marijuana (THC) Screen Ethyl Alcohol Hepatitis A IgM Ab Hep Bs Antigen Hep Bs Antibody Hep B Core Total Ab Hepatitis C Ab (EIA) Influenza Type A (PCR) Influenza Type B (PCR) RSV RNA Qual (PCR) SARS-CoV-2 RNA (RT-PCR) Blood Type Antibody Screen Crossmatch Airway Mallampati Class: III TM Dist: >3cm Neck ROM: Full Assessment and Plan Assessment Anesthesia Assessment: Anesthesia Plan Discussed and Chart Reviewed Final Anesthetic Review Family History of Problems with Anesthesia: No History of Problems with Anesthesia: No NPO: Yes ASA Class: IV and Emergency Final Preanesthetic Review: No Changes in Pt Med Stat, Meds/Allgs Chart Reviewed, Consent Obtained/Reviewed and Anes Risks/Benef Reviewed Patient Risk: High Procedure Risk: Intermediate Anesthetic Plan Anesthetic Plan: GA Disposition: Standard PACU
[2023-05-15] MEDS: Potassium Chloride/H20 40 MEQ/100 ML PIGGYBACK 100 MEQ IV (15:35)
--- NOTE | 2023-05-15 15:36 | PM.OP ---
Brief Operative Note Date of Service: 05/15/23 Pre-op diagnosis: gi bleed Post-op diagnosis: same Procedure: egd Surgeon: Sharif Kelly MD Anesthesia: MAC Was an Medical Assistant Ob Gyn used for this Procedure?: No Estimated blood loss (mL): 5 Pathology: none sent Condition: stable Disposition: ICU
--- NOTE | 2023-05-15 15:37 | PM.EVENT ---
Event Note Date of Service: 05/15/23 Event Note: EGD note dictated erosive esophagitis no varices antral gastritis no therapy performed Rec: iv ppi follow hct d/c octreotide Time Spent With Patient Time: Total time managing care of this patient today ____ minutes.
[2023-05-15 18:38] LABS: Hematocrit 21.6 % (37.0-47.0); Hemoglobin 7.2 g/dl (12.0-16.0); Mean Corpuscular HGB Conc 33.3 g/dl (31.0-35.0); Mean Corpuscular Volume 93.1 fL (80.0-98.0); Mean Platelet Volume 10.6 fL (9.4-12.3); Red Blood Count 2.32 X10*6/uL (4.20-5.50); Red Cell Distribution Width 19.9 % (11.0-16.0); White Blood Count 5.9 X10*3/uL (4.8-10.8)
[2023-05-15 18:49] LABS: NRBC Pct Auto 2.4 /100WBC (0.0-0.2); Platelet Count 74 X10*3/uL (160-400)
[2023-05-15 18:53] LABS: Anion Gap 16 (12-20); Blood Urea Nitrogen 10 mg/dL (9-16); Carbon Dioxide 26 mmol/L (22-29); Chloride 98 mmol/L (96-108); Creatinine Clr Calc Pharmacy 61.4; Estimated Glomerular Filt Rate > 60; Glucose Random 217 mg/dL (60-115); Potassium 3.6 mmol/L (3.3-5.1); Sodium 136 mmol/L (135-145)
[2023-05-15 19:03] LABS: Band Neutrophils Percent 0 % (3-5); Basophilic Stippling 1+ (0-2) /OIF; Lymphocytes Absolute Manual 1.7 X10*3/uL (1.2-4.9); Lymphocytes Percent Manual 28 % (20-40); Macrocytosis 1+ (5-14) /OIF; Monocytes Absolute Manual 0.2 X10*3/uL (0.1-1.2); Monocytes Percent Manual 3 % (2-11); Neutrophils Absolute Manual 4.1 X10*3/uL (2.0-8.3); Neutrophils Percent Manual 69 % (45-73); Nucleated Red Blood Cells 3 /100WBC (0-0); Polychromasia 1+ (0-2) /OIF; RBC Morphology NOTED; Target Cells 1+ (5-14) /OIF
[2023-05-15 19:05] LABS: Platelet Estimate DECREASED (NORMAL); Platelet Morphology Comment NORMAL
[2023-05-15] MEDS: Albumin Human 25 % 100 ML IV ×4 (19:29→22:46)
[2023-05-15] MEDS: 0.9 % Sodium Chloride 1,000 ML 999 ML IVCONT (22:46)
[2023-05-15] MEDS: dexmedeTOMIDidine HCL/NS 400 MCG/100 ML INFUS..BTL IVCONT (22:47)
[2023-05-16] VITALS (54 sets, daily range): BP systolic 70–114; BP diastolic 44–83; PULSE 98–127; RESP 15–36; TEMP 36.8–38.3; O2SAT 88–100; BMI 20.9
[2023-05-16 00:22] LABS: Mean Corpuscular HGB Conc 33.9 g/dl (31.0-35.0); Mean Corpuscular Hemoglobin 31.2 pg (27.0-33.0); Mean Corpuscular Volume 91.9 fL (80.0-98.0); Mean Platelet Volume 10.9 fL (9.4-12.3); NRBC Pct Auto 1.5 /100WBC (0.0-0.2); Red Blood Count 1.86 X10*6/uL (4.20-5.50); Red Cell Distribution Width 20.3 % (11.0-16.0); White Blood Count 5.9 X10*3/uL (4.8-10.8)
[2023-05-16 00:24] LABS: Hemoglobin 5.8 g/dl (12.0-16.0); Platelet Count 58 X10*3/uL (160-400)
[2023-05-16 00:25] LABS: Hematocrit 17.1 % (37.0-47.0)
[2023-05-16] MEDS: Norepinephrine Bitartrate/D5W 8 MG/250 ML PLAST..BAG 3.68 MG IV (00:46)
--- NOTE | 2023-05-16 01:46 | OP_ITS ---
DATE OF SERVICE: 05/15/2023 SURGEON: Sharif Kelly MD INDICATIONS: Upper GI bleeding. PREOPERATIVE DIAGNOSIS: POSTOPERATIVE DIAGNOSIS: PROCEDURE PERFORMED: Upper endoscopy. ESTIMATED BLOOD LOSS: COMPLICATIONS: ANESTHESIA: General anesthesia. ASSISTANTS: SPECIMENS: DESCRIPTION OF PROCEDURE: A history and physical performed. The risks and benefits of the procedure were explained to the patient. Informed consent was obtained. The patient was placed in the left lateral decubitus position. The Olympus video gastroscope was introduced into the esophagus, stomach, and duodenum. Examination was performed. The scope was removed. She tolerated the procedure well and was returned to the recovery area in stable condition. FINDINGS: Esophagus: There was erosive esophagitis involving the distal 2/3 of the esophagus with oozing at the EG junction. No varices were identified. Stomach: The stomach showed some old blood with no active bleeding. There was some gastritis involving the antrum. There was no portal hypertensive gastropathy. Duodenum: The bulb and second portion showed some small amounts of old blood, but no active bleeding. The lower esophagus was carefully examined and observed for approximately 5 minutes. The oozing that was identified at the beginning of the procedure had ceased at the termination of the procedure without requiring any hemostatic therapy. No therapy was performed. IMPRESSION: Erosive esophagitis. RECOMMENDATION: 1. Continue proton pump inhibitor. 2. Monitor hematocrit. MD BRENNEN Tineo/ERICKSON / [id number] MTDD
--- NOTE | 2023-05-16 04:57 | CONS_ITS ---
DATE OF SERVICE: 05/15/2023 REASON FOR CONSULTATION: Alcohol-induced liver disease and GI bleeding. HISTORY OF PRESENT ILLNESS: The patient is a 52-year-old female with a longstanding history of alcohol abuse consisting of at least 1 pint of liquor per day. I met her once in June of 2022, when she was admitted with some jaundice in relation to alcohol use. At that time, she did not have any GI bleeding. Imaging studies revealed a probable pseudocyst in the region of the pancreas. Since discharge from the hospital last year, she reports that she has continued to drink on a fairly regular basis. She was brought to the ER today after falling at home and having some reported upper GI bleeding with either hematemesis and/or coffee-ground emesis. She denies any definitive melena. She denies the use of any aspirin or NSAIDs. She denies a previous history of GI bleeding or ulcer disease. Upon presentation in the ER, she had a hemoglobin of 5.8 and was hypotensive. She had a lactic acid level of 22. She did not have any active bleeding in the ER. She was resuscitated with fluids, packed red blood cells, and platelets, and then was subsequently admitted to the ICU. She reports that she was not taking any medication on a regular basis at home. Thus far here in the hospital, she has been treated with ceftriaxone, pantoprazole, and Sandostatin. PAST MEDICAL HISTORY: Alcohol-related liver disease. Multiple sclerosis. She denies history of VA, diabetes, nor lung disease. She has had a and tubal ligation. SOCIAL HISTORY: She has been a smoker in the past. She has a boyfriend. Alcohol abuse. FAMILY HISTORY: Noncontributory. REVIEW OF SYSTEMS: CONSTITUTIONAL: She has been feeling weak and poorly in general. Appetite has been diminished. CARDIAC: No chest pain. PULMONARY: No coughing or hemoptysis. GI: As above. URINARY: No dysuria. No hematuria. PHYSICAL EXAMINATION: GENERAL: The patient is a pale, but alert female. She is oriented to person, place and year. Anicteric sclerae. Moist mucous membranes. NECK: Supple. CHEST: Clear. CARDIAC: Normal S1, S2. ABDOMEN: Somewhat distended with probable ascites. There is no mass, rebound, or guarding. Nontender. EXTREMITIES: Without edema. NEUROLOGIC: There is no asterixis on her neurologic exam. She is alert and oriented as mentioned above. LABORATORY DATA: As above. White blood cell count 5.8, hemoglobin 5.8, MCV 100, platelets 71,000. PT 25.8 with INR 2.1. Sodium 139, potassium 2.9, chloride 93, CO2 of 16, BUN 11, creatinine 0.9, glucose 51, lactic acid level 22.0, total bilirubin is 5.0, direct bilirubin 4.0, AST 99, ALT 15, alkaline phosphatase 260, ammonia level 31, albumin 2.2, lipase 10. Toxicology urine screen is negative and alcohol level was nondetectable. CT scan of her abdomen and pelvis today revealed hepatomegaly with steatosis, but no definitive cirrhosis nor mass. The pancreas appeared normal and the previous cystic lesion that had been seen last year was not present. There was no splenomegaly. There was no lymphadenopathy. The scan does not describe ascites. IMPRESSION: The patient is a 52-year-old female with advanced liver disease based on her clinical history of alcohol abuse, jaundice, coagulopathy, and thrombocytopenia. She may very well have a superimposed alcohol-induced hepatitis as well. She does not appear to be encephalopathic. In regard to the GI bleeding, this could be in relation to esophageal or gastric varices, portal gastropathy, peptic ulcer disease, esophagitis, or a Karly-Olson tear. I would recommend upper endoscopy later today for further evaluation of that. In the meantime, I will continue with IV Sandostatin and IV pantoprazole. I will continue resuscitation with blood products including packed red blood cells, FFP, and platelets. Full consent has been obtained from her for an upper endoscopy with myself or Dr. Kelly. This will be done with monitored anesthesia care. We did discuss that obviously she needs to avoid alcohol long-term given the severity of the findings on her CT scan and laboratories in regard to her liver disease. This has all been discussed in detail with the patient and she is comfortable with this plan. Thank you for the consultation. MD NAEL Anderson/ERICKSON / [id number] MTDD
[2023-05-16] MEDS: Furosemide 20 MG/2 ML VIAL IVPUSH ×2 (07:23→19:53)
[2023-05-16] MEDS: Pantoprazole Sodium 80 MG in 0.9 % Sodium Chloride 80 ML 10 MG IV ×2 (07:23→17:17)
[2023-05-16 09:23] LABS: VBG Base Excess 6.3 mmol/L; VBG HCO3 31 mmol/L (22-26); VBG pCO2 45 mmHg; VBG pH 7.44 (7.32-7.43); VBG pO2 49 mmHg
[2023-05-16 09:24] LABS: Hematocrit 30.3 % (37.0-47.0); Hemoglobin 10.4 g/dl (12.0-16.0); Mean Corpuscular HGB Conc 34.3 g/dl (31.0-35.0); Mean Corpuscular Hemoglobin 30.9 pg (27.0-33.0); Mean Corpuscular Volume 89.9 fL (80.0-98.0); Mean Platelet Volume 10.1 fL (9.4-12.3); Red Blood Count 3.37 X10*6/uL (4.20-5.50); Red Cell Distribution Width 18.3 % (11.0-16.0)
[2023-05-16 09:27] LABS: NRBC Pct Auto 1.5 /100WBC (0.0-0.2); Platelet Count 50 X10*3/uL (160-400); WBC ABN SCTR FOR CBC 1
[2023-05-16 09:29] LABS: INTERNATIONAL NORM RATIO 1.6 (0.9-1.1)
[2023-05-16 09:46] LABS: Alanine Aminotransferase 9 U/L (0-31); Albumin Level 3.6 g/dL (3.5-5.0); Alkaline Phosphatase 156 U/L (39-117); Anion Gap 15 (12-20); Aspartate Amino Transferase 66 U/L (5-31); Bilirubin Total 16.6 mg/dL (0.0-1.0); Blood Urea Nitrogen 16 mg/dL (9-16); Calcium 8.3 mg/dL (8.4-10.2); Carbon Dioxide 29 mmol/L (22-29); Chloride 102 mmol/L (96-108); Creatinine Clr Calc Pharmacy 74.4; Estimated Glomerular Filt Rate > 60; Glucose Random 111 mg/dL (60-115); Sodium 143 mmol/L (135-145); Total Protein 5.1 g/dL (6.5-8.0)
[2023-05-16 09:55] LABS: Magnesium 1.4 mg/dL (1.6-2.6); Phosphorus < 0.7 mg/dL (2.7-4.5)
[2023-05-16 10:02] LABS: Band Neutrophils Percent 10 % (3-5); Eosinophils Percent Manual 3 % (0-4); Lymphocytes Percent Manual 26 % (20-40); Monocytes Percent Manual 2 % (2-11); Neutrophils Percent Manual 59 % (45-73)
[2023-05-16 10:04] LABS: Acanthocytes 1+ (0-2) /OIF; Macrocytosis 1+ (5-14) /OIF; Microcytosis 1+ (5-14) /OIF; Platelet Estimate DECREASED (NORMAL); Platelet Morphology Comment NORMAL; RBC Morphology NOTED; Stomatocytes 1+ (5-14) /OIF; Target Cells 1+ (5-14) /OIF; Tear Drop Cells 1+ (0-2) /OIF
[2023-05-16 10:05] LABS: Burr Cells 1+ (0-2) /OIF; Polychromasia 1+ (0-2) /OIF
[2023-05-16 10:06] LABS: Eosinophils Absolute Manual 0.2 X10*3/uL (0.0-0.4); Lymphocytes Absolute Manual 2.1 X10*3/uL (1.2-4.9); Monocytes Absolute Manual 0.2 X10*3/uL (0.1-1.2); Neutrophils Absolute Manual 5.5 X10*3/uL (2.0-8.3); White Blood Count 7.9 X10*3/uL (4.8-10.8)
[2023-05-16] MEDS: Potassium Phosphate/NS 15 MMOL/250 ML PLAST..BAG 62.5 MMOL IV ×4 (10:08→22:25)
[2023-05-16] MEDS: Magnesium Sulfate/H2O 2 GM/50 ML PIGGYBACK IV (10:08)
--- NOTE | 2023-05-16 11:06 | MHC.CM.PN ---
Attempted to meet w/pt to review d/c planning needs: Pt lethargic, falling asleep during attempts to converse. Pt on Precedex for prevention of ETOH w/d and is receiving blood products for GIB. Pt is also getting Levo for BP management. CM to revisit pt on 05/16 when she is more alert and medically stable.
[2023-05-16 12:39] LABS: Venous Blood Gas Refer to POC result
--- NOTE | 2023-05-16 12:41 | P.PNCC_ITS ---
Subjective Subjective Date of Service: 05/16/23 Interval History: 52-year-old lady with underlying alcoholic cirrhosis presented complaining of multiple falls and recent multiple episodes of hematemesis. On ER evaluation patient hypotensive, with multiple electrolyte abnormalities, coagulopathy, lactic acidosis, and with acute blood loss anemia started on blood product and IV fluid support. Gastroenterology was consulted for upper endoscopy. Patient admitted to intensive care unit. She was started on octreotide drip and PPI. Her CT abdomen/pelvis demonstrated resolution of previously known peripancreatic fluid collection. Patient had EGD on 05/15/2023 demonstrating no acute bleeding, but significant distal esophagitis. Overnight with Kiah drifting hemoglobin requiring transfusion of additional 2 units of packed red blood cells and pressor support. Also, with rising bilirubin. Critical Care Time (minutes): 60 Physical Exam 2 Vital Signs: Vital Signs: Last Vital Signs Temp 100.4 F 05/16/23 12:00 Pulse 105 H 05/16/23 12:00 Resp 24 H 05/16/23 12:00 BP 83/58 L 05/16/23 12:00 Pulse Ox 96 05/16/23 12:00 O2 Del Method Nasal Cannula 05/16/23 12:00 O2 Flow Rate 5 05/16/23 12:00 BMI result Body Mass Index 20.9 Const: General: no acute distress, alert, awake and other (Jaundiced) Eyes: Sclerae: scleral abnormal (Icteric) EOM: EOMs intact bilaterally Neck: Neck: Yes no lymphadenopathy, Yes trachea midline and Yes supple Resp: Effort & Inspection: normal respiratory effort and no respiratory distress Auscultation: crackles (Bibasilar) Cardio: Rate: tachycardic Rhythm: regular rhythm Heart sounds: no gallops, no murmurs and no rubs GI: Palpation (GI): Soft to palpation and Other GI palpation findings present ( Nontender) Auscultation: normal bowel sounds Extrem: General: No clubbing, No cyanosis and Yes edema (1+ bilateral) Objective Data Labs 05/16/23 09:14 05/16/23 09:14 Labs: Laboratory Results - last 24 hr 05/15/23 05/15/23 05/15/23 08:44 13:43 18:15 WBC 5.9 RBC 2.32 L D Hgb 7.2 L D Hct 19.3 L* D 21.6 L MCV 93.1 D MCH 31.0 MCHC 33.3 RDW 19.9 H Plt Count 74 L MPV 10.6 Immature Gran % (Auto) Cancelled Neut % (Auto) Cancelled Lymph % (Auto) Cancelled Mobile % (Auto) Cancelled Eos % (Auto) Cancelled Baso % (Auto) Cancelled Lymph # (Auto) Cancelled Mobile # (Auto) Cancelled Eos # (Auto) Cancelled Baso # (Auto) Cancelled Abs Immat Gran (auto) Cancelled Absolute Neuts (auto) Cancelled Absolute Nucleated RBC 0.140 H Nucleated RBC % (auto) 2.4 H Neutrophils % (Manual) 69 Band Neutrophils % 0 L Lymphocytes % (Manual) 28 Monocytes % (Manual) 3 Eosinophils % (Manual) Abs Neuts (Manual) 4.1 Lymphocytes # (Manual) 1.7 Monocytes # (Manual) 0.2 Eosinophils # (Manual) Nucleated RBCs 3 H Platelet Estimate DECREASED Plt Morphology Comment NORMAL RBC Morphology NOTED Polychromasia 1+ (0-2) Basophilic Stippling 1+ (0-2) Microcytosis Macrocytosis 1+ (5-14) Target Cells 1+ (5-14) Tear Drop Cells Stomatocytes [place] Cells Acanthocytes (Spur) PT INR VBG pH VBG pCO2 VBG pO2 VBG HCO3 VBG O2 Saturation VBG Base Excess Sodium 136 Potassium 3.6 D Chloride 98 Carbon Dioxide 26 Anion Gap 16 BUN 10 Creatinine 0.68 Estim Creat Clear Calc 61.4 Estimated GFR > 60 Random Glucose 217 H Lactic Acid F/U @ 4Hr 10.5 H* Calcium 8.0 L Phosphorus Magnesium Total Bilirubin AST ALT Alkaline Phosphatase Total Protein Albumin Blood Type O Negative Antibody Screen NEGATIVE Crossmatch See Detail 05/16/23 05/16/23 05/16/23 00:15 09:14 09:16 WBC 5.9 7.9 RBC 1.86 L 3.37 L D Hgb 5.8 L* 10.4 L D Hct 17.1 L* D 30.3 L D MCV 91.9 89.9 MCH 31.2 30.9 MCHC 33.9 34.3 RDW 20.3 H 18.3 H Plt Count 58 L 50 L MPV 10.9 10.1 Immature Gran % (Auto) Cancelled Neut % (Auto) Cancelled Lymph % (Auto) Cancelled Mobile % (Auto) Cancelled Eos % (Auto) Cancelled Baso % (Auto) Cancelled Lymph # (Auto) Cancelled Mobile # (Auto) Cancelled Eos # (Auto) Cancelled Baso # (Auto) Cancelled Abs Immat Gran (auto) Cancelled Absolute Neuts (auto) Cancelled Absolute Nucleated RBC 0.090 H 0.120 H Nucleated RBC % (auto) 1.5 H 1.5 H Neutrophils % (Manual) 59 Band Neutrophils % 10 H Lymphocytes % (Manual) 26 Monocytes % (Manual) 2 Eosinophils % (Manual) 3 Abs Neuts (Manual) 5.5 Lymphocytes # (Manual) 2.1 Monocytes # (Manual) 0.2 Eosinophils # (Manual) 0.2 Nucleated RBCs Platelet Estimate DECREASED Plt Morphology Comment NORMAL RBC Morphology NOTED Polychromasia 1+ (0-2) Basophilic Stippling Microcytosis 1+ (5-14) Macrocytosis 1+ (5-14) Target Cells 1+ (5-14) Tear Drop Cells 1+ (0-2) Stomatocytes 1+ (5-14) Julio Cells 1+ (0-2) Acanthocytes (Spur) 1+ (0-2) PT 20.0 H D INR 1.6 H VBG pH 7.44 H VBG pCO2 45 VBG pO2 49 VBG HCO3 31 H VBG O2 Saturation 82.0 VBG Base Excess 6.3 Sodium 143 Potassium 3.0 L Chloride 102 Carbon Dioxide 29 Anion Gap 15 BUN 16 Creatinine 0.65 Estim Creat Clear Calc 74.4 Estimated GFR > 60 Random Glucose 111 Lactic Acid F/U @ 4Hr Calcium 8.3 L Phosphorus < 0.7 L* Magnesium 1.4 L* Total Bilirubin 16.6 H AST 66 H ALT 9 Alkaline Phosphatase 156 H Total Protein 5.1 L Albumin 3.6 Blood Type Antibody Screen Crossmatch Microbiology Microbiology Results: Microbiology 05/15/23 08:46 Blood - Venous Blood Culture - Preliminary No growth after 24 hours. 05/15/23 08:44 Blood - Venous Blood Culture - Preliminary No growth after 24 hours. Progress Note: A&P Assessment and plan (1) Coagulopathy: Status: Acute (2) Acidosis, lactic: Status: Acute (3) Acute blood loss anemia: Status: Acute (4) Acute upper GI bleed: Status: Acute (5) Alcoholic cirrhosis: Status: Acute (6) Acute liver failure: Status: Acute (7) Delirium tremens: Status: Acute Plan Assessment: 52-year-old lady with underlying alcoholic cirrhosis admitted with upper GI bleed and multiple electrolyte abnormalities. Plan: Neuro: Hepatic encephalopathy/delirium tremens. Continue to monitor with CIWA protocol. Cardiac: Hemorrhagic shock improving with blood product support, continue to titrate off pressor support as tolerated. Pulmonary: Acute hypoxic respiratory failure secondary to pulmonary edema on the background of requiring multiple blood products for hemorrhagic shock resuscitation. Continue to titrate off supplemental oxygen as tolerated. Renal: Acute kidney injury likely secondary to hemorrhagic shock, resolved. Lactic acidosis resolved. Endo: No acute issues. GI: Upper GI bleed on the background of alcoholic cirrhosis. Gastroenterology service care appreciated. Status post EGD on 05/15/2023 showing erosive distal esophagitis with no active bleeding. Continue on PPI. Acute Levophed on the background of underlying alcoholic cirrhosis. ID: No acute issues Heme/Onc: Acute blood loss anemia requiring blood product support. Transfusion threshold of 7. FFP/vitamin K for coagulopathy. Psych: No acute issues. Miscellaneous: No acute issues. Prophylaxis: Pneumatic compression Diet: Clear liquids Critical care time spent: 60 minutes Quality Stroke Does the patient have a stroke diagnosis?: No VTE Prior VTE?: No VTE Risk Level:: Medical - moderate - high VTE Device Contraindication: N/A - Device Ordered VTE Drug Contraindication: Treatment Not Indicated
--- NOTE | 2023-05-16 15:03 | HO.POSTANES ---
Post Anesthesia Evaluation Post Anesthesia Evaluation Date of Service: 05/16/23 Vital Signs: Vital Signs Temp Pulse Resp BP Pulse Ox O2 Del Method O2 Flow Rate 05/16/23 14:00 100.2 F 111 H 29 H 86/62 L 90 L Nasal Cannula 5 05/16/23 13:00 100.2 F 114 H 29 H 95/64 88 L Nasal Cannula 5 05/16/23 12:00 100.4 F 105 H 24 H 83/58 L 96 Nasal Cannula 5 05/16/23 11:04 102 H 91/63 05/16/23 11:00 100.9 F H 105 H 22 H 91/63 97 Nasal Cannula 5 05/16/23 10:00 99.1 F 104 H 21 H 101/70 100 Nasal Cannula 5 05/16/23 09:41 100 107/72 05/16/23 09:00 99.3 F 102 H 20 110/78 96 Nasal Cannula 5 05/16/23 08:57 99.0 F 106 H 24 H 108/80 05/16/23 08:00 98.4 F 102 H 25 H 107/75 97 Nasal Cannula 5 05/16/23 07:00 98.4 F 101 H 17 103/74 94 Nasal Cannula 5 05/16/23 06:00 98.2 F 103 H 27 H 101/74 90 L Nasal Cannula 5 05/16/23 05:41 98.4 F 107 H 22 H 101/74 05/16/23 05:25 98.4 F 110 H 29 H 114/83 05/16/23 05:00 98.4 F 108 H 17 96/68 98 Nasal Cannula 2 05/16/23 04:31 98.4 F 100 20 105/60 05/16/23 04:00 98.7 F 103 H 20 100/67 92 Nasal Cannula 2 Anesthesia: General Endotracheal-GETA Mental Status: Awake Pain Control: Satisfactory Nausea/Vomiting: None Hydration: Adequate Anesthesia-Related Issues: No Anes. Related Issues
--- NOTE | 2023-05-16 17:26 | P.PNGI_ITS ---
Subjective Subjective Date of Service: 05/16/23 Interval History: History from patient, ICU staff, and EMR Patient with some melena today but no vomiting. She did receive a total of 4u PRBC's, as well as FFP and platelets. EGD findings D/W Dr. Kelly Critical Care Time (minutes): 0 Physical Exam 2 Vital Signs: Vital Signs: Last Vital Signs Temp 99.7 F 05/16/23 17:00 Pulse 121 H 05/16/23 17:21 Resp 24 H 05/16/23 17:00 BP 100/71 05/16/23 17:21 Pulse Ox 92 05/16/23 17:00 O2 Del Method Nasal Cannula 05/16/23 17:00 O2 Flow Rate 5 05/16/23 17:00 BMI result Body Mass Index 20.9 Const: General: cooperative, comfortable, alert and ill appearing O rientation/consciousness: oriented to person and oriented to place Eyes: Other: Icteric sclerae GI: Other: Distended with probable ascites, soft, NT Skin: General skin exam: jaundice Neuro: Other: Mild asterixis, alert, answers questions, oriented to person/place/year General: oriented to person and oriented to place Objective Data Labs 05/16/23 09:14 05/16/23 09:14 Labs: Laboratory Results - last 24 hr 05/15/23 05/15/23 05/16/23 08:44 18:15 00:15 WBC 5.9 5.9 RBC 2.32 L D 1.86 L Hgb 7.2 L D 5.8 L* Hct 21.6 L 17.1 L* D MCV 93.1 D 91.9 MCH 31.0 31.2 MCHC 33.3 33.9 RDW 19.9 H 20.3 H Plt Count 74 L 58 L MPV 10.6 10.9 Immature Gran % (Auto) Cancelled Neut % (Auto) Cancelled Lymph % (Auto) Cancelled [place] % (Auto) Cancelled Eos % (Auto) Cancelled Baso % (Auto) Cancelled Lymph # (Auto) Cancelled [place] # (Auto) Cancelled Eos # (Auto) Cancelled Baso # (Auto) Cancelled Abs Immat Gran (auto) Cancelled Absolute Neuts (auto) Cancelled Absolute Nucleated RBC 0.140 H 0.090 H Nucleated RBC % (auto) 2.4 H 1.5 H Neutrophils % (Manual) 69 Band Neutrophils % 0 L Lymphocytes % (Manual) 28 Monocytes % (Manual) 3 Eosinophils % (Manual) Abs Neuts (Manual) 4.1 Lymphocytes # (Manual) 1.7 Monocytes # (Manual) 0.2 Eosinophils # (Manual) Nucleated RBCs 3 H Platelet Estimate DECREASED Plt Morphology Comment NORMAL RBC Morphology NOTED Polychromasia 1+ (0-2) Basophilic Stippling 1+ (0-2) Microcytosis Macrocytosis 1+ (5-14) Target Cells 1+ (5-14) Tear Drop Cells Stomatocytes Julio Cells Acanthocytes (Spur) PT INR VBG pH VBG pCO2 VBG pO2 VBG HCO3 VBG O2 Saturation VBG Base Excess Sodium 136 Potassium 3.6 D Chloride 98 Carbon Dioxide 26 Anion Gap 16 BUN 10 Creatinine 0.68 Estim Creat Clear Calc 61.4 Estimated GFR > 60 Random Glucose 217 H Calcium 8.0 L Phosphorus Magnesium Total Bilirubin AST ALT Alkaline Phosphatase Total Protein Albumin Blood Type O Negative Antibody Screen NEGATIVE Crossmatch See Detail 05/16/23 05/16/23 09:14 09:16 WBC 7.9 RBC 3.37 L D Hgb 10.4 L D Hct 30.3 L D MCV 89.9 MCH 30.9 MCHC 34.3 RDW 18.3 H Plt Count 50 L MPV 10.1 Immature Gran % (Auto) Cancelled Neut % (Auto) Cancelled Lymph % (Auto) Cancelled [place] % (Auto) Cancelled Eos % (Auto) Cancelled Baso % (Auto) Cancelled Lymph # (Auto) Cancelled [place] # (Auto) Cancelled Eos # (Auto) Cancelled Baso # (Auto) Cancelled Abs Immat Gran (auto) Cancelled Absolute Neuts (auto) Cancelled Absolute Nucleated RBC 0.120 H Nucleated RBC % (auto) 1.5 H Neutrophils % (Manual) 59 Band Neutrophils % 10 H Lymphocytes % (Manual) 26 Monocytes % (Manual) 2 Eosinophils % (Manual) 3 Abs Neuts (Manual) 5.5 Lymphocytes # (Manual) 2.1 Monocytes # (Manual) 0.2 Eosinophils # (Manual) 0.2 Nucleated RBCs Platelet Estimate DECREASED Plt Morphology Comment NORMAL RBC Morphology NOTED Polychromasia 1+ (0-2) Basophilic Stippling Microcytosis 1+ (5-14) Macrocytosis 1+ (5-14) Target Cells 1+ (5-14) Tear Drop Cells 1+ (0-2) Stomatocytes 1+ (5-14) Julio Cells 1+ (0-2) Acanthocytes (Spur) 1+ (0-2) PT 20.0 H D INR 1.6 H VBG pH 7.44 H VBG pCO2 45 VBG pO2 49 VBG HCO3 31 H VBG O2 Saturation 82.0 VBG Base Excess 6.3 Sodium 143 Potassium 3.0 L Chloride 102 Carbon Dioxide 29 Anion Gap 15 BUN 16 Creatinine 0.65 Estim Creat Clear Calc 74.4 Estimated GFR > 60 Random Glucose 111 Calcium 8.3 L Phosphorus < 0.7 L* Magnesium 1.4 L* Total Bilirubin 16.6 H AST 66 H ALT 9 Alkaline Phosphatase 156 H Total Protein 5.1 L Albumin 3.6 Blood Type Antibody Screen Crossmatch Microbiology Microbiology Results: Microbiology 05/15/23 Unknown Urine Catheterized - Straight Catheter Urine Culture - Preliminary Gram negative jenni 05/15/23 08:46 Blood - Venous Blood Culture - Preliminary No growth after 24 hours. 05/15/23 08:44 Blood - Venous Blood Culture - Preliminary No growth after 24 hours. Procedures Date of Service Date of Service: 05/16/23 Progress Note: A&P Assessment and plan (1) Alcoholic cirrhosis of liver with ascites: Status: Acute (2) UGI bleed: Status: Acute (3) Jaundice: Status: Acute Plan Imp: Alcohol-induced cirrhosis with associated jaundice due to underlying liver disease and probably some hemolysis from the transfusions with probable indirect hyperbilirubinemia , probable ascites, GI bleed due to significant esophagitis, and some mild encephalopathy with asterixis on her exam. Presently stable after multiple transfusions and without any signs of active bleeding. Rec: Check ammonia level and give Lactulose as needed. U/S with paracentesis w/specimens and doppler studies ordered for tomorrow to R/O SBP and portal vein thrombosis, respectively. Check liver profile with fractionated TBilirubin tomorrow. Continue IV PPI and F/U Hgb. Continued supportive care. Thanks. Time Spent With Patient Time: Total time managing care of this patient today ____ minutes. Quality Stroke Does the patient have a stroke diagnosis?: No VTE Prior VTE?: No VTE Risk Level:: Medical - moderate - high VTE Device Contraindication: N/A - Device Ordered VTE Drug Contraindication: Treatment Not Indicated
[2023-05-16 18:39] LABS: Hematocrit 30.6 % (37.0-47.0); Hemoglobin 10.4 g/dl (12.0-16.0); Mean Corpuscular Hemoglobin 30.1 pg (27.0-33.0); Mean Corpuscular Volume 88.7 fL (80.0-98.0); Red Blood Count 3.45 X10*6/uL (4.20-5.50); Red Cell Distribution Width 18.9 % (11.0-16.0); White Blood Count 7.3 X10*3/uL (4.8-10.8)
[2023-05-16 18:57] LABS: Platelet Count 51 X10*3/uL (160-400)
[2023-05-16 19:37] LABS: Eosinophils Absolute Manual 0.1 X10*3/uL (0.0-0.4); Eosinophils Percent Manual 1 % (0-4); Lymphocytes Absolute Manual 2.5 X10*3/uL (1.2-4.9); Lymphocytes Percent Manual 34 % (20-40); Neutrophils Percent Manual 64 % (45-73); Nucleated Red Blood Cells 3 /100WBC (0-0)
[2023-05-16 19:38] LABS: Burr Cells 2+ (3-5) /OIF; RBC Morphology NOTED
[2023-05-16 19:39] LABS: Target Cells 1+ (5-14) /OIF
[2023-05-16 19:41] LABS: Platelet Estimate DECREASED (NORMAL); Platelet Morphology Comment NORMAL
[2023-05-16 19:42] LABS: Band Neutrophils Percent 1 % (3-5); Neutrophils Absolute Manual 4.7 X10*3/uL (2.0-8.3)
[2023-05-16 20:13] LABS: Albumin Level 3.2 g/dL (3.5-5.0); Anion Gap 21 (12-20); Blood Urea Nitrogen 22 mg/dL (9-16); Calcium 8.1 mg/dL (8.4-10.2); Carbon Dioxide 22 mmol/L (22-29); Chloride 107 mmol/L (96-108); Creatinine Clr Calc Pharmacy 89.5; Estimated Glomerular Filt Rate > 60; Glucose Random 73 mg/dL (60-115); Potassium 4.2 mmol/L (3.3-5.1); Sodium 146 mmol/L (135-145)
[2023-05-16 20:14] LABS: Magnesium 1.8 mg/dL (1.6-2.6); Phosphorus 3.3 mg/dL (2.7-4.5)
[2023-05-16] MEDS: Norepinephrine Bitartrate/D5W 8 MG/250 ML PLAST..BAG 20.63 MG IV (22:06)
[2023-05-16] MEDS: dexmedeTOMIDidine HCL/NS 400 MCG/100 ML INFUS..BTL IVCONT (22:07)
[2023-05-17] VITALS (47 sets, daily range): BP systolic 75–105; BP diastolic 47–68; PULSE 94–116; RESP 15–33; TEMP 37.8–38.2; O2SAT 89–106; BMI 21.7
[2023-05-17 00:13] LABS: VBG Base Excess 0.1 mmol/L; VBG HCO3 24 mmol/L (22-26); VBG pCO2 37 mmHg; VBG pH 7.41 (7.32-7.43); VBG pO2 40 mmHg
[2023-05-17 00:22] LABS: Venous Blood Gas Refer to POC result
[2023-05-17] MEDS: Albumin Human 25 % 100 ML IV ×2 (01:10→02:16)
[2023-05-17 01:29] LABS: VBG Base Excess -0.2 mmol/L; VBG HCO3 23 mmol/L (22-26); VBG pCO2 36 mmHg; VBG pH 7.41 (7.32-7.43); VBG pO2 39 mmHg
[2023-05-17 01:30] LABS: Venous Blood Gas Refer to POC result
[2023-05-17] MEDS: Pantoprazole Sodium 80 MG in 0.9 % Sodium Chloride 80 ML 10 MG IV ×3 (02:13→20:47)
--- NOTE | 2023-05-17 02:23 | PC.NURSE ---
Addendum entered by Enzo Givens RN 05/17/23 04:02: PREVIOUSLY ATTEMPTED FEW SIPS WATER BUT PATIENT CHOKING ON SIPS H20...KEPT NPO OVERNIGHT PER DISPENSER OPERATOR Original Note: CARE ASSUMED 7PM...PATIENT AWAKE...SPPEECH SLOW...VAGUE RESPONSES...HAMILTON SPONTANEOUSLY AND TO COMMAND...RESTLESS IN BED...TACHYPNEIC AND RAPIDLY INCREASED O2 DEMAND...RESTLESS AND AGITATED--PULLING ON LINES AND O2 LINE..PRECIDEX DRIP RESTARTED PER DISPENSER OPERATOR AND TITRATED PER APR....O2 INITIALLY 5 L/M CANNULA WITH SAO2 94-95%...RR INCREASED TO 30'S AT SHIFT CHANGE AND DECREASED SAO2 TO 84-87%...O2 TITRATED TO 6-7 L/M AND SAO2 REMAINED 86%..LUNGS WITH FINE CRACKLES...LASIX 20MG IV X1 PER ICU DISPENSER OPERATOR....TRANSIENT OUTPUT VIA [place]...DECREASED BP AND LEVOPHED TITRATED UPWARD FROM INITIAL DOSAGE 0.05 MCG/KG/MIN...REMAINED LOW SAO2...O2 TITRATED TO OXYMASK FROM 11 TO 15 L/M WITH SAO2 90-91%....VBG DRAWN AND REVIEWED BY DISPENSER OPERATOR...REMAINED TACHYPNEIC WITH INCREASED WORK OF BREATHING..SAO2 89-90% WITH 15 L/M VIA OXYMASK....RT PAGED..PLACED ON BIPAP 12/7 AND FIO2 50%... LEVOPHED DRIP TITRATED TO 0.5 MCG/KG/MIN...2 BOTTLES ALBUMEN TO BE INFUSED..PRECIDEX CURRENTLY 0.6 MCG/KG/HR...[place] MARGINAL OUTPUT...BP GOAL PER SHIFT REPORT AND PER ICU DISPENSER OPERATOR IS FOR MAP>65
[2023-05-17] MEDS: Norepinephrine Bitartrate/D5W 8 MG/250 ML PLAST..BAG 36.84 MG IV ×2 (04:06→10:51)
[2023-05-17 04:54] LABS: VBG Base Excess -1.7 mmol/L; VBG HCO3 22 mmol/L (22-26); VBG pCO2 35 mmHg; VBG pH 7.41 (7.32-7.43); VBG pO2 43 mmHg
[2023-05-17 04:54] LABS: Hemoglobin 9.1 g/dl (12.0-16.0); Mean Corpuscular HGB Conc 33.7 g/dl (31.0-35.0); Mean Corpuscular Hemoglobin 30.4 pg (27.0-33.0); Mean Corpuscular Volume 90.3 fL (80.0-98.0); Mean Platelet Volume 10.9 fL (9.4-12.3); NRBC Pct Auto 0.3 /100WBC (0.0-0.2); Red Blood Count 2.99 X10*6/uL (4.20-5.50); Red Cell Distribution Width 19.2 % (11.0-16.0); White Blood Count 6.8 X10*3/uL (4.8-10.8)
[2023-05-17 04:55] LABS: Platelet Count 36 X10*3/uL (160-400)
[2023-05-17 04:56] LABS: Venous Blood Gas Refer to POC result
[2023-05-17 04:59] LABS: INTERNATIONAL NORM RATIO 1.6 (0.9-1.1); Prothrombin Time 19.6 SEC (11.1-13.3)
[2023-05-17 05:11] LABS: Alanine Aminotransferase 10 U/L (0-31); Alkaline Phosphatase 107 U/L (39-117); Ammonia 45 umol/L (13-55); Anion Gap 23 (12-20); Aspartate Amino Transferase 61 U/L (5-31); Bilirubin Direct 14.8 mg/dL (0.0-0.5); Bilirubin Total 21.1 mg/dL (0.0-1.0); Blood Urea Nitrogen 26 mg/dL (9-16); Calcium 8.3 mg/dL (8.4-10.2); Carbon Dioxide 21 mmol/L (22-29); Chloride 106 mmol/L (96-108); Creatinine Clr Calc Pharmacy 57.5; Estimated Glomerular Filt Rate > 60; Glucose Random 82 mg/dL (60-115); Magnesium 1.7 mg/dL (1.6-2.6); Phosphorus 3.7 mg/dL (2.7-4.5); Potassium 3.1 mmol/L (3.3-5.1); Sodium 147 mmol/L (135-145); Total Protein 5.2 g/dL (6.5-8.0)
[2023-05-17 05:13] LABS: Band Neutrophils Percent 3 % (3-5); Lymphocytes Absolute Manual 0.7 X10*3/uL (1.2-4.9); Lymphocytes Percent Manual 11 % (20-40); Monocytes Absolute Manual 0.1 X10*3/uL (0.1-1.2); Monocytes Percent Manual 1 % (2-11); Neutrophils Percent Manual 85 % (45-73)
[2023-05-17 05:15] LABS: Large Platelet PRESENT; Macrocytosis 1+ (5-14) /OIF; Microcytosis 1+ (5-14) /OIF; Platelet Estimate DECREASED (NORMAL); Platelet Morphology Comment NOTED; RBC Morphology NOTED
[2023-05-17 05:16] LABS: Acanthocytes 1+ (0-2) /OIF; Burr Cells 1+ (0-2) /OIF; Dohle Bodies PRESENT; Howell Jolly Bodies PRESENT; Hypochromasia 1+ (5-14) /OIF; Ovalocytes 1+ (5-14) /OIF; Pappenheimer Bodies PRESENT; Polychromasia 1+ (0-2) /OIF; Schistocytes 1+ (0-2) /OIF; Spherocytes 1+ (0-2) /OIF; Target Cells 1+ (5-14) /OIF; Tear Drop Cells 1+ (0-2) /OIF; Toxic Granulation PRESENT; Toxic Vacuolation PRESENT
[2023-05-17] MEDS: Potassium Chloride/H20 40 MEQ/100 ML PIGGYBACK 50 MEQ IV (05:31)
[2023-05-17 06:19] LABS: Hypersegmented Neutrophils PRESENT
[2023-05-17] MEDS: cefTRIAXone sodium 1 GM in 0.9 % Sodium Chloride 50 ML IV (08:21)
--- NOTE | 2023-05-17 10:09 | PM.CCPN ---
Subjective Subjective Date of Service: 05/17/23 Interval History: 52-year-old lady with underlying alcoholic cirrhosis presented complaining of multiple falls and recent multiple episodes of hematemesis. On ER evaluation patient hypotensive, with multiple electrolyte abnormalities, coagulopathy, lactic acidosis, and with acute blood loss anemia started on blood product and IV fluid support. Gastroenterology was consulted for upper endoscopy. Patient admitted to intensive care unit. She was started on octreotide drip and PPI. Her CT abdomen/pelvis demonstrated resolution of previously known peripancreatic fluid collection. Patient had EGD on 05/15/2023 demonstrating no acute bleeding, but significant distal esophagitis. Hospital course further complicated by development of acute liver failure on the background of underlying alcoholic cirrhosis. Worsening oxygenation, pressor requirements, liver failure, and encephalopathy overnight. Critical Care Time (minutes): 90 Physical Exam Vital Signs: Vital Signs: Last Vital Signs Temp 100.6 F H 05/17/23 09:00 Pulse 100 05/17/23 09:00 Resp 27 H 05/17/23 09:00 BP 91/56 L 05/17/23 09:00 Pulse Ox 95 05/17/23 09:00 O2 Del Method BiPAP 05/17/23 09:00 O2 Flow Rate 15 05/17/23 02:00 FiO2 50 05/17/23 09:00 BMI result Body Mass Index 21.7 Const: General: no acute distress, confusion, lethargic (Arousable) and other (Jaundiced) Orientation/consciousness: confusion and lethargic (Arousable) Eyes: Sclerae: scleral abnormal (Icteric) bilateral EOM: EOMs intact bilaterally Neck: Neck: Yes no lymphadenopathy, Yes trachea midline and Yes supple Resp: Effort & Inspection: tachypneic Auscultation: crackles bilateral Cardio: Rate: regular rate Rhythm: regular rhythm Heart sounds: no gallops, no murmurs and no rubs GI: Inspection: Yes distended Palpation (GI): Soft to palpation, nontender and Other GI palpation findings present Auscultation: normal bowel sounds Neuro: General: confusion Extrem: General: No clubbing, No cyanosis and Yes edema (1+ bilateral) Objective Data Labs 05/17/23 04:44 05/17/23 04:44 Labs: Laboratory Results - last 24 hr 05/16/23 05/16/23 05/16/23 18:19 19:53 19:53 WBC 7.3 RBC 3.45 L Hgb 10.4 L Hct 30.6 L MCV 88.7 MCH 30.1 MCHC 34.0 RDW 18.9 H Plt Count 51 L MPV 11.0 Immature Gran % (Auto) Cancelled Neut % (Auto) Cancelled Lymph % (Auto) Cancelled [place] % (Auto) Cancelled Eos % (Auto) Cancelled Baso % (Auto) Cancelled Lymph # (Auto) Cancelled [place] # (Auto) Cancelled Eos # (Auto) Cancelled Baso # (Auto) Cancelled Abs Immat Gran (auto) Cancelled Absolute Neuts (auto) Cancelled Absolute Nucleated RBC 0.070 H Nucleated RBC % (auto) 1.0 H Neutrophils % (Manual) 64 Band Neutrophils % 1 L Lymphocytes % (Manual) 34 Monocytes % (Manual) Eosinophils % (Manual) 1 Abs Neuts (Manual) 4.7 Lymphocytes # (Manual) 2.5 Monocytes # (Manual) Eosinophils # (Manual) 0.1 Metamyelocytes # Not Reportable Nucleated RBCs 3 H Hypersegmented Neuts Toxic Granulation Toxic Vacuolation Dohle Bodies Platelet Estimate DECREASED Large Platelets Plt Morphology Comment NORMAL RBC Morphology NOTED Polychromasia Hypochromasia Microcytosis Macrocytosis Spherocytes Pappenheimer Bodies Target Cells 1+ (5-14) Tear Drop Cells Ovalocytes [place] Bodies [place] Cells 2+ (3-5) Acanthocytes (Spur) Schistocytes PT INR VBG pH VBG pCO2 VBG pO2 VBG HCO3 VBG O2 Saturation VBG Base Excess Sodium 146 H Potassium 4.2 D Chloride 107 Carbon Dioxide 22 Anion Gap 21 H BUN 22 H Creatinine 0.54 Estim Creat Clear Calc 89.5 Estimated GFR > 60 Random Glucose 73 Calcium 8.1 L Phosphorus 3.3 Magnesium 1.8 Total Bilirubin Direct Bilirubin AST ALT Alkaline Phosphatase Ammonia Total Protein Albumin 3.2 L Cancelled 05/17/23 05/17/23 05/17/23 00:05 01:20 04:44 WBC 6.8 RBC 2.99 L Hgb 9.1 L Hct 27.0 L MCV 90.3 MCH 30.4 MCHC 33.7 RDW 19.2 H Plt Count 36 L D MPV 10.9 Immature Gran % (Auto) Cancelled Neut % (Auto) Cancelled Lymph % (Auto) Cancelled [place] % (Auto) Cancelled Eos % (Auto) Cancelled Baso % (Auto) Cancelled Lymph # (Auto) Cancelled [place] # (Auto) Cancelled Eos # (Auto) Cancelled Baso # (Auto) Cancelled Abs Immat Gran (auto) Cancelled Absolute Neuts (auto) Cancelled Absolute Nucleated RBC 0.020 H Nucleated RBC % (auto) 0.3 H Neutrophils % (Manual) 85 H Band Neutrophils % 3 Lymphocytes % (Manual) 11 L Monocytes % (Manual) 1 L Eosinophils % (Manual) Abs Neuts (Manual) 6.0 Lymphocytes # (Manual) 0.7 L Monocytes # (Manual) 0.1 Eosinophils # (Manual) Metamyelocytes # Nucleated RBCs Hypersegmented Neuts PRESENT Toxic Granulation PRESENT Toxic Vacuolation PRESENT Dohle Bodies PRESENT Platelet Estimate DECREASED Large Platelets PRESENT Plt Morphology Comment NOTED RBC Morphology NOTED Polychromasia 1+ (0-2) Hypochromasia 1+ (5-14) Microcytosis 1+ (5-14) Macrocytosis 1+ (5-14) Spherocytes 1+ (0-2) Pappenheimer Bodies PRESENT Target Cells 1+ (5-14) Tear Drop Cells 1+ (0-2) Ovalocytes 1+ (5-14) [place] Bodies PRESENT Julio Cells 1+ (0-2) Acanthocytes (Spur) 1+ (0-2) Schistocytes 1+ (0-2) PT 19.6 H INR 1.6 H VBG pH 7.41 7.41 VBG pCO2 37 36 VBG pO2 40 39 VBG HCO3 24 23 VBG O2 Saturation 60.0 62.0 VBG Base Excess 0.1 -0.2 Sodium 147 H Potassium 3.1 L D Chloride 106 Carbon Dioxide 21 L Anion Gap 23 H BUN 26 H Creatinine 0.84 Estim Creat Clear Calc 57.5 Estimated GFR > 60 Random Glucose 82 Calcium 8.3 L Phosphorus 3.7 Magnesium 1.7 Total Bilirubin 21.1 H Direct Bilirubin 14.8 H AST 61 H ALT 10 Alkaline Phosphatase 107 Ammonia 45 Total Protein 5.2 L Albumin 4.0 05/17/23 04:47 WBC RBC Hgb Hct MCV MCH MCHC RDW Plt Count MPV Immature Gran % (Auto) Neut % (Auto) Lymph % (Auto) [place] % (Auto) Eos % (Auto) Baso % (Auto) Lymph # (Auto) [place] # (Auto) Eos # (Auto) Baso # (Auto) Abs Immat Gran (auto) Absolute Neuts (auto) Absolute Nucleated RBC Nucleated RBC % (auto) Neutrophils % (Manual) Band Neutrophils % Lymphocytes % (Manual) Monocytes % (Manual) Eosinophils % (Manual) Abs Neuts (Manual) Lymphocytes # (Manual) Monocytes # (Manual) Eosinophils # (Manual) Metamyelocytes # Nucleated RBCs Hypersegmented Neuts Toxic Granulation Toxic Vacuolation Dohle Bodies Platelet Estimate Large Platelets Plt Morphology Comment RBC Morphology Polychromasia Hypochromasia Microcytosis Macrocytosis Spherocytes Pappenheimer Bodies Target Cells Tear Drop Cells Ovalocytes [place] Bodies [place] Cells Acanthocytes (Spur) Schistocytes PT INR VBG pH 7.41 VBG pCO2 35 VBG pO2 43 VBG HCO3 22 VBG O2 Saturation 67.0 VBG Base Excess -1.7 Sodium Potassium Chloride Carbon Dioxide Anion Gap BUN Creatinine Estim Creat Clear Calc Estimated GFR Random Glucose Calcium Phosphorus Magnesium Total Bilirubin Direct Bilirubin AST ALT Alkaline Phosphatase Ammonia Total Protein Albumin Microbiology Microbiology Results: Microbiology 05/15/23 Unknown Urine Catheterized - Straight Catheter Urine Culture - Final Escherichia coli 05/15/23 08:46 Blood - Venous Blood Culture - Preliminary No growth after 24 hours. 05/15/23 08:44 Blood - Venous Blood Culture - Preliminary No growth after 24 hours. Progress Note: A&P Assessment and plan (1) Acute liver failure: Status: Acute (2) Alcoholic cirrhosis of liver with ascites: Status: Acute (3) UGI bleed: Status: Acute (4) Acute respiratory failure with hypoxia: Status: Acute (5) Acute blood loss anemia: Status: Acute Plan Assessment: 52-year-old lady with underlying alcoholic cirrhosis admitted with upper GI bleed and multiple electrolyte abnormalities. Plan: Neuro: Hepatic encephalopathy/delirium tremens. Continue to monitor with CIWA protocol. Cardiac: Shock, continue to titrate off pressor support as tolerated. Pulmonary: Acute hypoxic respiratory failure secondary to pulmonary edema on the background of requiring multiple blood products for hemorrhagic shock resuscitation. Continue to titrate off supplemental oxygen as tolerated. Renal: Acute kidney injury likely secondary to hemorrhagic shock, resolved. Lactic acidosis resolved. Endo: No acute issues. GI: Upper GI bleed on the background of alcoholic cirrhosis with ascites. Gastroenterology service care appreciated. Status post EGD on 05/15/2023 showing erosive distal esophagitis with no active bleeding. Continue on PPI. Acute liver failure on the background of underlying alcoholic cirrhosis. Patient requires diagnostic/therapeutic paracentesis, no contacts available and patient unable to give consent, will proceed under medical necessity. ID: E coli UTI, continue ceftriaxone. Heme/Onc: Acute blood loss anemia requiring blood product support. Transfusion threshold of 7. FFP/vitamin K for coagulopathy. Psych: No acute issues. Miscellaneous: No acute issues. Prophylaxis: Pneumatic compression Diet: NPO Critical care time spent: 90 minutes Quality Stroke Does the patient have a stroke diagnosis?: No VTE Prior VTE?: No VTE Risk Level:: Medical - moderate - high VTE Device Contraindication: N/A - Device Ordered VTE Drug Contraindication: Treatment Not Indicated
--- NOTE | 2023-05-17 10:12 | P.CDIM_ITS ---
PROVIDER RESPONSE TEXT: To clarify, the appropriate diagnosis supported by the clinical indicators: Acute liver failure QUERY TEXT: PHYSICIAN'S DOCUMENTATION REQUEST Date of Query: 05/17/2023 08:59 AM EDT Patient Name: Miriam Cole Admit Date: 05/15/2023 Dear Norman Maldonado, A review of the medical record indicates additional documentation may be needed. Please review below and update the documentation accordingly. Clinical Indicators: Gastro progress note dated 05/15 - Alcohol induced cirrhosis with associated jaundice due to underlyin g liver disease. ICU progress note - Assessment and plan: Acute liver failure Based on the above, if possible please document the diagnosis within the body of the Plan for consist ency if agree: Acute liver failure Acute liver disease Other Other (explain) Clinically unable to determine (explain) Thank you, Denise Brand, CCS, CDIS Use of terms such as suspected, likely, concern for, or probable (associated with a specific diagnosi s that is being evaluated, monitored, or treated as if it exists) are acceptable and can be coded in the inpatient se tting, when documented at the time of discharge. Please use your independent medical judgment in providing your response. THIS QUERY IS PART OF THE PERMANENT MEDICAL RECORD
[2023-05-17] MEDS: Piperacillin Sodium/Tazobactam 3.375 GM in 0.9 % Sodium Chloride 50 ML IV ×3 (11:13→23:52)
[2023-05-17] MEDS: vancomycin HCL 1,250 MG in 0.9 % Sodium Chloride 250 ML 166.67 MG IV (11:20)
[2023-05-17] MEDS: dexmedeTOMIDidine HCL/NS 400 MCG/100 ML INFUS..BTL 7.86 MCG IVCONT (11:46)
[2023-05-17 13:03] LABS: MN% 61.6 %; PMN% 38.4 %; RBC Peritoneal Fluid 0.003 X10*6/uL; WBC Peritoneal Fluid 0.014 X10*3/uL
[2023-05-17 13:38] LABS: BF Shift QC OK YES; Eosinophils Peritoneal Fl 1 %; Lymphocyte Peritoneal Fl 20 %; Monocytes Peritoneal Fl 8 %; Neutrophils Peritoneal Fluid 51 %; Other Peritioneal Fl 20 %
--- NOTE | 2023-05-17 14:59 | MHC.CM.PN ---
Pt continues to be lethargic, now on BiPAP and with worsening liver fx. Call placed to next of contact Abraham to inquire on next of kin. Abraham states pt has 4 estranged children in addition to 4 siblings - also estranged. He states her son, Med is a [place] commercial loan collection officer. Call placed to [facility] who will give Med a message to contact [facility] ICU. CM director received call from Med who is willing to assist w/consent and decision making via phone at [phone] - Med confirms pt's estrangement w/children and siblings. Registration updated w/next of contact number. CM to attempt completion of HCP when pt is able to remain awake and can verbalize comprehension of document.
[2023-05-17] MEDS: Norepinephrine Bitartrate/D5W 8 MG/250 ML PLAST..BAG 41.27 MG IV (16:33)
[2023-05-17 18:33] LABS: Hematocrit 27.9 % (37.0-47.0); Hemoglobin 9.2 g/dl (12.0-16.0); Mean Corpuscular Volume 90.9 fL (80.0-98.0); Mean Platelet Volume 10.9 fL (9.4-12.3); NRBC Pct Auto 0.3 /100WBC (0.0-0.2); Red Blood Count 3.07 X10*6/uL (4.20-5.50); Red Cell Distribution Width 19.8 % (11.0-16.0); White Blood Count 5.8 X10*3/uL (4.8-10.8)
[2023-05-17 18:45] LABS: Alanine Aminotransferase 9 U/L (0-31); Albumin Level 3.4 g/dL (3.5-5.0); Alkaline Phosphatase 111 U/L (39-117); Anion Gap 20 (12-20); Aspartate Amino Transferase 57 U/L (5-31); Bilirubin Total 18.6 mg/dL (0.0-1.0); Blood Urea Nitrogen 33 mg/dL (9-16); Calcium 8.3 mg/dL (8.4-10.2); Carbon Dioxide 23 mmol/L (22-29); Chloride 108 mmol/L (96-108); Creatinine Clr Calc Pharmacy 43.9; Estimated Glomerular Filt Rate 53; Glucose Random 89 mg/dL (60-115); Magnesium 1.6 mg/dL (1.6-2.6); Phosphorus 2.6 mg/dL (2.7-4.5); Potassium 3.5 mmol/L (3.3-5.1); Sodium 147 mmol/L (135-145); Total Protein 4.8 g/dL (6.5-8.0)
[2023-05-17 19:07] LABS: Eosinophils Absolute Manual 0.1 X10*3/uL (0.0-0.4); Eosinophils Percent Manual 1 % (0-4); Lymphocytes Percent Manual 34 % (20-40); Monocytes Absolute Manual 0.1 X10*3/uL (0.1-1.2); Monocytes Percent Manual 2 % (2-11); Neutrophils Percent Manual 63 % (45-73)
[2023-05-17 19:15] LABS: Acanthocytes 1+ (0-2) /OIF; Burr Cells 2+ (3-5) /OIF; Macrocytosis 1+ (5-14) /OIF; Microcytosis 1+ (5-14) /OIF; RBC Morphology NOTED
[2023-05-17 19:16] LABS: Pappenheimer Bodies PRESENT; Tear Drop Cells 1+ (0-2) /OIF
[2023-05-17 19:17] LABS: Platelet Estimate DECREASED (NORMAL)
[2023-05-17 19:18] LABS: Band Neutrophils Percent 0 % (3-5); Neutrophils Absolute Manual 3.7 X10*3/uL (2.0-8.3); Platelet Morphology Comment NORMAL
[2023-05-17 19:19] LABS: Platelet Count 26 X10*3/uL (160-400)
[2023-05-17] MEDS: Potassium Phosphate/NS 15 MMOL/250 ML PLAST..BAG 62.5 MMOL IV ×2 (19:43→23:54)
[2023-05-17] MEDS: Norepinephrine Bitartrate/D5W 8 MG/250 ML PLAST..BAG 48.63 MG IV (20:47)
[2023-05-17] MEDS: vancomycin HCL 750 MG in 0.9 % Sodium Chloride 250 ML 265 MG IV (23:53)
[2023-05-18] VITALS (33 sets, daily range): BP systolic 0–139; BP diastolic 0–82; PULSE 0–156; RESP 16–40; TEMP 30.8–38.8; O2SAT 90–100; BMI 22.4
[2023-05-18] MEDS: Norepinephrine Bitartrate/D5W 8 MG/250 ML PLAST..BAG 57.48 MG IV (01:07)
[2023-05-18] MEDS: Vasopressin 20 UNIT/100 ML INFUS..BTL 12 UNIT IVCONT ×2 (01:25→05:47)
[2023-05-18] MEDS: ondansetron HCL 4 MG/2 ML VIAL IVPUSH (01:54)
[2023-05-18] MEDS: dexmedeTOMIDidine HCL/NS 400 MCG/100 ML INFUS..BTL 9.83 MCG IVCONT (01:54)
[2023-05-18] MEDS: fentaNYL citrate/PF 100 MCG/2 ML VIAL 25 MCG IVPUSH (02:50)
[2023-05-18] MEDS: Furosemide 20 MG/2 ML VIAL IVPUSH (04:05)
[2023-05-18] MEDS: Albumin Human 25 % 100 ML IV ×2 (04:05→05:10)
[2023-05-18 05:19] LABS: VBG Base Excess -6.9 mmol/L; VBG HCO3 16 mmol/L (22-26); VBG pCO2 26 mmHg; VBG pH 7.39 (7.32-7.43); VBG pO2 52 mmHg
[2023-05-18 05:42] LABS: Venous Blood Gas Refer to POC result
[2023-05-18] MEDS: Piperacillin Sodium/Tazobactam 3.375 GM in 0.9 % Sodium Chloride 50 ML IV (05:46)
[2023-05-18] MEDS: Pantoprazole Sodium 80 MG in 0.9 % Sodium Chloride 80 ML 10 MG IV (05:47)
[2023-05-18 05:48] LABS: Hemoglobin 9.2 g/dl (12.0-16.0); PLT ABN DIST 1
[2023-05-18] MEDS: dexmedeTOMIDidine HCL/NS 400 MCG/100 ML INFUS..BTL 14.74 MCG IVCONT (05:48)
[2023-05-18 05:50] LABS: Hematocrit 28.3 % (37.0-47.0); Mean Corpuscular HGB Conc 32.5 g/dl (31.0-35.0); Mean Corpuscular Hemoglobin 30.2 pg (27.0-33.0); Mean Corpuscular Volume 92.8 fL (80.0-98.0); Mean Platelet Volume 9.6 fL (9.4-12.3); NRBC Pct Auto 0.7 /100WBC (0.0-0.2); Red Blood Count 3.05 X10*6/uL (4.20-5.50); Red Cell Distribution Width 19.4 % (11.0-16.0)
[2023-05-18 05:52] LABS: Platelet Count 25 X10*3/uL (160-400)
[2023-05-18 06:09] LABS: Alanine Aminotransferase 9 U/L (0-31); Albumin Level 3.9 g/dL (3.5-5.0); Alkaline Phosphatase 106 U/L (39-117); Anion Gap 26 (12-20); Aspartate Amino Transferase 54 U/L (5-31); Bilirubin Total 17.8 mg/dL (0.0-1.0); Blood Urea Nitrogen 37 mg/dL (9-16); Calcium 8.3 mg/dL (8.4-10.2); Carbon Dioxide 17 mmol/L (22-29); Chloride 110 mmol/L (96-108); Creatinine Clr Calc Pharmacy 40.9; Estimated Glomerular Filt Rate 48; Glucose Random 86 mg/dL (60-115); Magnesium 1.5 mg/dL (1.6-2.6); Phosphorus 6.2 mg/dL (2.7-4.5); Potassium 4.2 mmol/L (3.3-5.1); Sodium 149 mmol/L (135-145); Total Protein 5.5 g/dL (6.5-8.0)
[2023-05-18] MEDS: Magnesium Sulfate/D5W 1 GM/100 ML PIGGYBACK IV (06:24)
--- NOTE | 2023-05-18 06:49 | PC.NURSE ---
Upon initial assessment at 1900- pt A&Ox2, restless/moaning, HAMILTON, following simple commands, on precedex gtt. SpO2 dropping to 84% on 8L oxymask- titrated up to 15L then placed on BiPAP 12/7/100%, titrated down as tolerated per EMR. HR up to 130-140s. Levophed titrated to max rate, vasopressin ordered and infusing per MAR. Scott in place, UOP trending down, 330 mL output this shift. Given lasix 20 mg IVP x1 with no effect. SECURITY DISPATCHER aware of pt status. Telesitter in place for safety, bed locked in low position.
[2023-05-18 06:50] LABS: Band Neutrophils Percent 6 % (3-5); Eosinophils Percent Manual 1 % (0-4); Lymphocytes Absolute Manual 1.3 X10*3/uL (1.2-4.9); Lymphocytes Percent Manual 32 % (20-40); Monocytes Absolute Manual 0.1 X10*3/uL (0.1-1.2); Monocytes Percent Manual 3 % (2-11); Neutrophils Absolute Manual 2.6 X10*3/uL (2.0-8.3); Neutrophils Percent Manual 58 % (45-73)
[2023-05-18 07:05] LABS: RBC Morphology NOTED
[2023-05-18 07:07] LABS: Acanthocytes 1+ (0-2) /OIF; Burr Cells 1+ (0-2) /OIF; Hypochromasia 1+ (5-14) /OIF; Pappenheimer Bodies PRESENT; Target Cells 1+ (5-14) /OIF; Tear Drop Cells 1+ (0-2) /OIF
[2023-05-18 07:08] LABS: Platelet Estimate DECREASED (NORMAL); Platelet Morphology Comment NORMAL
[2023-05-18] MEDS: Dextrose 5 % 1,000 ML 75 ML IVCONT (09:15)
[2023-05-18 09:41] LABS: Vancomycin Random 30.2 mcg/mL (15-20)
--- NOTE | 2023-05-18 10:15 | P.PNCC_ITS ---
Subjective Subjective Date of Service: 05/18/23 Interval History: 52-year-old lady with underlying alcoholic cirrhosis presented complaining of multiple falls and recent multiple episodes of hematemesis. On ER evaluation patient hypotensive, with multiple electrolyte abnormalities, coagulopathy, lactic acidosis, and with acute blood loss anemia started on blood product and IV fluid support. Gastroenterology was consulted for upper endoscopy. Patient admitted to intensive care unit. She was started on octreotide drip and PPI. Her CT abdomen/pelvis demonstrated resolution of previously known peripancreatic fluid collection. Patient had EGD on 05/15/2023 demonstrating no acute bleeding, but significant distal esophagitis. Hospital course further complicated by development of acute liver failure on the background of underlying alcoholic cirrhosis. No events overnight. Critical Care Time (minutes): 90 Physical Exam 2 Vital Signs: Vital Signs: Last Vital Signs Temp 101.8 F H 05/18/23 09:00 Pulse 138 H 05/18/23 09:00 Resp 30 H 05/18/23 09:00 BP 78/56 L 05/18/23 09:20 Pulse Ox 98 05/18/23 09:00 O2 Del Method BiPAP 05/18/23 09:00 O2 Flow Rate 8 05/17/23 19:00 FiO2 50 05/18/23 09:00 BMI result Body Mass Index 22.4 Const: General: no acute distress, confusion, lethargic and other (Jaundiced) Orientation/consciousness: confusion and lethargic Eyes: Sclerae: scleral abnormal (Icteric) EOM: EOMs intact bilaterally Neck: Neck: Yes no lymphadenopathy, Yes trachea midline and Yes supple Resp: Effort & Inspection: tachypneic Auscultation: crackles bilateral Cardio: Rate: tachycardic Rhythm: regular rhythm Heart sounds: no gallops, no murmurs and no rubs GI: Palpation (GI): Soft to palpation and Other GI palpation findings present ( Nontender) Auscultation: normal bowel sounds Neuro: General: confusion Extrem: General: No clubbing, No cyanosis and Yes edema (1+ bilateral) Objective Data Labs 05/18/23 05:12 05/18/23 05:12 Labs: Laboratory Results - last 24 hr 05/15/23 05/17/23 05/17/23 08:44 11:50 18:06 WBC 5.8 RBC 3.07 L Hgb 9.2 L Hct 27.9 L MCV 90.9 MCH 30.0 MCHC 33.0 RDW 19.8 H Plt Count 26 L D MPV 10.9 Immature Gran % (Auto) Cancelled Neut % (Auto) Cancelled Lymph % (Auto) Cancelled [place] % (Auto) Cancelled Eos % (Auto) Cancelled Baso % (Auto) Cancelled Lymph # (Auto) Cancelled [place] # (Auto) Cancelled Eos # (Auto) Cancelled Baso # (Auto) Cancelled Abs Immat Gran (auto) Cancelled Absolute Neuts (auto) Cancelled Absolute Nucleated RBC 0.020 H Nucleated RBC % (auto) 0.3 H Neutrophils % (Manual) 63 Band Neutrophils % 0 L Lymphocytes % (Manual) 34 Monocytes % (Manual) 2 Eosinophils % (Manual) 1 Abs Neuts (Manual) 3.7 Lymphocytes # (Manual) 2.0 Monocytes # (Manual) 0.1 Eosinophils # (Manual) 0.1 Platelet Estimate DECREASED Plt Morphology Comment NORMAL RBC Morphology NOTED Hypochromasia Microcytosis 1+ (5-14) Macrocytosis 1+ (5-14) Pappenheimer Bodies PRESENT Target Cells Tear Drop Cells 1+ (0-2) Julio Cells 2+ (3-5) Acanthocytes (Spur) 1+ (0-2) VBG pH VBG pCO2 VBG pO2 VBG HCO3 VBG O2 Saturation VBG Base Excess Sodium 147 H Potassium 3.5 Chloride 108 Carbon Dioxide 23 Anion Gap 20 BUN 33 H Creatinine 1.10 Estim Creat Clear Calc 43.9 Estimated GFR 53 Random Glucose 89 Calcium 8.3 L Phosphorus 2.6 L Magnesium 1.6 Total Bilirubin 18.6 H AST 57 H ALT 9 Alkaline Phosphatase 111 Total Protein 4.8 L Albumin 3.4 L Peritoneal WBC 0.014 Peritoneal RBC 0.003 Periton Neutrophils 51 Periton Lymphocytes 20 Peritoneal Monocytes 8 Peritoneal Eosinophils 1 Peritoneal Other Cells 20 Random Vancomycin Blood Type O Negative Antibody Screen NEGATIVE Crossmatch See Detail 05/18/23 05/18/23 05:12 09:10 WBC 4.0 L RBC 3.05 L Hgb 9.2 L Hct 28.3 L MCV 92.8 MCH 30.2 MCHC 32.5 RDW 19.4 H Plt Count 25 L MPV 9.6 Immature Gran % (Auto) Cancelled Neut % (Auto) Cancelled Lymph % (Auto) Cancelled [place] % (Auto) Cancelled Eos % (Auto) Cancelled Baso % (Auto) Cancelled Lymph # (Auto) Cancelled [place] # (Auto) Cancelled Eos # (Auto) Cancelled Baso # (Auto) Cancelled Abs Immat Gran (auto) Cancelled Absolute Neuts (auto) Cancelled Absolute Nucleated RBC 0.030 H Nucleated RBC % (auto) 0.7 H Neutrophils % (Manual) 58 Band Neutrophils % 6 H Lymphocytes % (Manual) 32 Monocytes % (Manual) 3 Eosinophils % (Manual) 1 Abs Neuts (Manual) 2.6 Lymphocytes # (Manual) 1.3 Monocytes # (Manual) 0.1 Eosinophils # (Manual) Platelet Estimate DECREASED Plt Morphology Comment NORMAL RBC Morphology NOTED Hypochromasia 1+ (5-14) Microcytosis Macrocytosis Pappenheimer Bodies PRESENT Target Cells 1+ (5-14) Tear Drop Cells 1+ (0-2) Julio Cells 1+ (0-2) Acanthocytes (Spur) 1+ (0-2) VBG pH 7.39 VBG pCO2 26 VBG pO2 52 VBG HCO3 16 L VBG O2 Saturation 79.0 VBG Base Excess -6.9 Sodium 149 H Potassium 4.2 Chloride 110 H Carbon Dioxide 17 L Anion Gap 26 H BUN 37 H Creatinine 1.18 Estim Creat Clear Calc 40.9 Estimated GFR 48 Random Glucose 86 Calcium 8.3 L Phosphorus 6.2 H Magnesium 1.5 L Total Bilirubin 17.8 H AST 54 H ALT 9 Alkaline Phosphatase 106 Total Protein 5.5 L Albumin 3.9 Peritoneal WBC Peritoneal RBC Periton Neutrophils Periton Lymphocytes Peritoneal Monocytes Peritoneal Eosinophils Peritoneal Other Cells Random Vancomycin 30.2 H* Blood Type Antibody Screen Crossmatch Microbiology Microbiology Results: Microbiology 05/17/23 11:50 Ascites Fluid Gram Stain - Final 05/15/23 08:46 Blood - Venous Blood Culture - Preliminary No growth after 48 hours. 05/15/23 08:44 Blood - Venous Blood Culture - Preliminary No growth after 48 hours. 05/15/23 Unknown Urine Catheterized - Straight Catheter Urine Culture - Final Escherichia coli Progress Note: A&P Assessment and plan (1) Acute respiratory failure with hypoxia: Status: Acute (2) Acute liver failure: Status: Acute (3) Shock: Status: Acute (4) Alcoholic cirrhosis of liver with ascites: Status: Acute (5) Hepatic encephalopathy: Status: Acute (6) Coagulopathy: Status: Acute Plan Assessment: 52-year-old lady with underlying alcoholic cirrhosis admitted with upper GI bleed and multiple electrolyte abnormalities. Plan: Neuro: Hepatic encephalopathy/delirium tremens. Continue to monitor with CIWA protocol. Cardiac: Shock, continue to titrate off pressor support as tolerated. Pulmonary: Acute hypoxic respiratory failure secondary to pulmonary edema on the background of requiring multiple blood products for hemorrhagic shock resuscitation. Continue to titrate off supplemental oxygen as tolerated. Renal: Acute kidney injury secondary to hepatorenal syndrome. Non oliguric. Continue to monitor renal indices and urine output. Continue on colloidal support. Endo: No acute issues. GI: Upper GI bleed on the background of alcoholic cirrhosis with ascites. Gastroenterology service care appreciated. Status post EGD on 05/15/2023 showing erosive distal esophagitis with no active bleeding. Continue on PPI. Acute liver failure on the background of underlying alcoholic cirrhosis. Diagnostic paracentesis with no evidence of SBP. Abdominal ultrasound with no evidence of acute cholecystitis or portal vein thrombosis. ID: E coli UTI, now on broad-spectrum antibiotics. Heme/Onc: Acute blood loss anemia requiring blood product support. Transfusion threshold of 7. Psych: No acute issues. Miscellaneous: Overall prognosis is poor. Prophylaxis: Pneumatic compression Diet: NPO Critical care time spent: 90 minutes Quality Stroke Does the patient have a stroke diagnosis?: No VTE Prior VTE?: No VTE Risk Level:: Medical - moderate - high VTE Device Contraindication: N/A - Device Ordered VTE Drug Contraindication: Treatment Not Indicated
[2023-05-18] MEDS: EPINEPHrine 5 MG in Dextrose 5 % 250 ML 31.82 MG IVCONT (11:17)
--- NOTE | 2023-05-18 11:54 | PM.CCN ---
Critical Care Event Note Summary Date of Service: 05/18/23 Code activated: No Narrative: At approximately 10:50 a.m. patient with sudden onset of bradycardia rapidly deteriorating into PEA cardiac arrest. CPR started immediately and was performed according to ACLS guidelines for approximately 15 minutes when patient had returned spontaneous circulation. Patient was intubated during the CPR. Family contact was attempted, however had to leave a voice message. However, patient with another episode of bradycardia and PEA arrest at 11:35 a.m. with CPR started immediately and returned spontaneous circulation achieved after 1 round of CPR and with another bradycardia/PEA arrest at 11:49 with CPR again started immediately. During that time patient's son called back and after discussion of the clinical situation changed patient's code status to do not resuscitate. At this time CPR measures were stopped and patient pronounced at 11:50 a.m. Critical Care Time (minutes): 60
--- NOTE | 2023-05-18 12:08 | PM.DDS ---
Discharge Sum: Prov Provider Primary care physician: [facility] Consults: 05/15/23 18:57 Consult to Gastroenterology Routine Consulting Provider: Julio Cesar Olson Reason for consultation: UGIB Has provider been notified: Yes Discharge Sum: Diag Contributing Factors (1) Acute respiratory failure with hypoxia: (2) Acute liver failure: (3) Shock: (4) Alcoholic cirrhosis of liver with ascites: (5) Hepatic encephalopathy: (6) Coagulopathy: Discharge Sum: Summary Date and Time Date of admission: 05/15/23 09:59 Date of : 05/18/23 Time of : 11:50 Summary Details: 52-year-old lady with underlying alcoholic cirrhosis presented complaining of multiple falls and recent multiple episodes of hematemesis. On ER evaluation patient hypotensive, with multiple electrolyte abnormalities, coagulopathy, lactic acidosis, and with acute blood loss anemia started on blood product and IV fluid support. Gastroenterology was consulted for upper endoscopy. Patient admitted to intensive care unit. She was started on octreotide drip and PPI. Her CT abdomen/pelvis demonstrated resolution of previously known peripancreatic fluid collection. Patient had EGD on 05/15/2023 demonstrating no acute bleeding, but significant distal esophagitis. Hospital course further complicated by development of acute liver failure on the background of underlying alcoholic cirrhosis. On 05/18/2023 at approximately 10:50 a.m. patient with sudden onset of bradycardia rapidly deteriorating into PEA cardiac arrest. CPR started immediately and was performed according to ACLS guidelines for approximately 15 minutes when patient had return of spontaneous circulation. Patient was intubated during the CPR. Family contact was attempted, but had to leave a voice message. Patient with another episode of bradycardia and PEA arrest at 11:35 a.m. with CPR started immediately and return of spontaneous circulation achieved after 1 round of CPR and, again, with another bradycardia/PEA arrest at 11:49 with CPR again started immediately. During that time patient's son called back and after discussion of the clinical situation changed patient's code status to do not resuscitate. At this time CPR measures were stopped and patient pronounced at 11:50 a.m. Additional Data Confirmation of as documented by pronouncing clinician: no pulse, no respirations, no heart sounds and pupils fixed and dilated Family: contacted Attending physician: Norman Maldonado MD
--- NOTE | 2023-05-18 14:16 | PC.NURSE ---
At approximately 1000, pt's BP with high readings at 170s/120s; tried to re-run multiple automated BPs with no readings, and tried manually and unable to get a BP; MD aware of this. Pt's pulse rate and O2 Sat unchanged. At approximately 1035, able to get a reading within the goal. Pt's repeat BP at approximately 1045 was 42/59 and pt starting to desiree down on tele in the 70s. Recycled BP and was at 27/12 and SB in the 50s on tele with a positive pulse check; MD now at bedside. At 1050, pt's heart rate in the 40s and unable to get a BP, 1 amp of Epi and 1 amp of Bicarb given as ordered. At 1052, pt was pulseless; CPR was initiated and code carried per ACLS guidelines by Dr. Maldonado. After 6 rounds of Epi and CPR, pt acheived ROSC at 1109. During the code, pt was intubated at 1057 with an ETT 7.5, 25 at the lip. On ACVC on the vent at 16/600/5/100%. Continued to be unable to get a BP on pt, pt was started on IV Epinephrine gtt at approximately 1117, titrated per MD (see MAR). MD tried to reach family with no success, left message. At approximately 1135, pt became bradycardic again and was unable to get a BP. Pt became pulseless and initiated CPR immediately, MD at bedside, 1 amp of Epi given as ordered. Pt achieved ROSC at 1137. At 1149, pt became bradycardic again with no pulse; CPR started and 1 amp of Epi given as ordered. During this time, son Med called; after speaking with MD; son decided to change Code status from Full to DNR for the pt. Unable to get a pulse still; Dr. Maldonado pronounced pt's expiration at 1150. [employer] contacted; spoke with sales representative groceries Lynn and the case was declined; Case # [id number]. Partner Abraham came to visit the pt and took the pt's belongings home. Post mortem care completed. [place] [facility] [place].
== END 2023-05-18 11:50 | disposition expired | DRG 280 ==
LOC: HO.ED 07:29 → HO.EDOVER 10:13 → HO.ICU 10:29
PROVIDERS: Internal Medicine; Internal Medicine Gastroenterology; Nurse Practitioner Family; Physician Assistant Surgical; Admitting Provider Internal Medicine Pulmonary Disease; Emergency Provider Emergency Medicine; Visit Provider Internal Medicine Pulmonary Disease
PROC: 0DJ08ZZ Inspection of Upper Intestinal Tract, Via Natural or Artificial Opening Endoscopic (ICD-10-PCS; principal; 2023-05-15 14:40)
DX: K70.31 Alcoholic cirrhosis of liver with ascites (principal); J96.01 Acute respiratory failure with hypoxia; R57.8 Other shock; F10.131 Alcohol abuse with withdrawal delirium; K20.91 Esophagitis, unspecified with bleeding; K29.71 Gastritis, unspecified, with bleeding; D62 Acute posthemorrhagic anemia; J81.1 Chronic pulmonary edema; D68.4 Acquired coagulation factor deficiency; K72.00 Acute and subacute hepatic failure without coma; K76.82 Hepatic encephalopathy; E87.0 Hyperosmolality and hypernatremia; Z66 Do not resuscitate; N17.9 Acute kidney failure, unspecified; N39.0 Urinary tract infection, site not specified; I46.9 Cardiac arrest, cause unspecified; R00.1 Bradycardia, unspecified; B96.20 Unspecified Escherichia coli [E. coli] as the cause of diseases classified elsewhere; D69.59 Other secondary thrombocytopenia; F17.210 Nicotine dependence, cigarettes, uncomplicated; G35 Multiple sclerosis; Z71.6 Tobacco abuse counseling; R29.6 Repeated falls; E87.6 Hypokalemia; E83.42 Hypomagnesemia; Z20.822 Contact with and (suspected) exposure to COVID-19
CPT/HCPCS: 0241U; 36415; 49083; 70450; 71045; 72125; 74177; 76705; 80048; 80053; 80076; 80202; 80307; 81001; 82040; 82140; 82248; 82550; 82803; 82947; 83605; 83690; 83735; 84100; 84145; 84484; 85007; 85025; 85027; 85610; 86704; 86706; 86709; 86803; 86850; 86900; 86901; 86920; 87040; 87070; 87073; 87086; 87088; 87186; 87205; 87340; 89051; 93005; 93975; 94002; 94660; 94799; 99285; C1758; C9113; J0171; J0696; J1940; J2250; J2354; J2405; J2543; J2598; J2704; J3010; J3370; J3371; J3411; J3430; J3475; J3480; P9016; P9017; P9047; P9073; Q9967

== ENCOUNTER → 2023-05-15 06:58 | Outpatient (BNV) | payer MEDICAID, SELFPAY | PROVIDERS: Admitting Provider Internal Medicine Pulmonary Disease; Emergency Provider Emergency Medicine; Visit Provider Internal Medicine | DX: R00.0 Tachycardia, unspecified (principal); R94.31 Abnormal electrocardiogram [ECG] [EKG] | CPT/HCPCS: 93010 ==

== ENCOUNTER 2023-05-15 09:59 | Outpatient (BNV) | payer MEDICAID, SELFPAY | END 2023-05-17 07:00 | PROVIDERS: Admitting Provider Internal Medicine Pulmonary Disease; Emergency Provider Emergency Medicine; Visit Provider Physician Assistant Surgical | DX: R18.8 Other ascites (principal) | CPT/HCPCS: 49083 ==

== ENCOUNTER → 2023-05-15 09:59 | Outpatient (BNV) | payer MEDICAID, SELFPAY | PROVIDERS: Admitting Provider Internal Medicine Pulmonary Disease; Emergency Provider Emergency Medicine; Visit Provider Internal Medicine Pulmonary Disease | DX: J96.01 Acute respiratory failure with hypoxia (principal); R57.9 Shock, unspecified; K70.31 Alcoholic cirrhosis of liver with ascites; K72.00 Acute and subacute hepatic failure without coma; K76.82 Hepatic encephalopathy; D68.9 Coagulation defect, unspecified | CPT/HCPCS: 99291; 99292; 99499 ==